=== PATIENT | female | born 1960 | race Caucasian/White ===

== ENCOUNTER 2018-09-22 06:07 | Day surgery (SDC) | payer MEDICARE, OTHER, SELFPAY ==
[2018-09-22 06:38] VITALS: BP 107/69; PULSE 84; RESP 16; TEMP 35.8; O2SAT 97
[2018-09-22] MEDS: Lactated Ringers 1,000 ML 80 ML IV (07:09)
[2018-09-22] MEDS: CLINDAMYCIN 600 MG/50 ML BAG 100 MG IVPB (07:46)
[2018-09-22] MEDS: Normal Saline 1,000 ML 100 ML IV (07:54)
[2018-09-22] MEDS: Bupivacaine 0.5% Pres-Free 30 ML VIAL (07:55)
[2018-09-22] MEDS: Lidocaine 1% Pres-Free 5 ML VIAL (07:55)
--- NOTE | 2018-09-22 08:07 | W.PM.DSUDISC ---
Discharge Plan Disposition Patient Disposition: HOME Condition: Good Discharge Details Reason For Visit: correction hammertoe Attending Provider: Dominic Mathias Primary Care Provider: Hai Ortiz Home Meds and New Rx's Prescriptions: No Action potassium chloride 10 mEq Capsule, Extended Release 10 meq PO DAILY RF: 0 gabapentin 600 mg Tablet 600 mg PO TID RF: 0 sumatriptan succinate 100 mg Tablet 100 mg PO PRN PRNRF: 0 clonazepam 0.5 mg Tablet 0.5 mg PO PRN PRNRF: 0 venlafaxine [Effexor XR] 150 mg Capsule,Extended Release 24hr 150 mg PO DAILY RF: 0 tramadol 50 mg Tablet 50 mg PO DAILY RF: 0 tramadol 50 mg Tablet 100 mg PO PRN PRNRF: 0 methocarbamol 750 mg Tablet 750 mg PO HS RF: 0 furosemide 80 mg Tablet 80 mg PO DAILY RF: 0 pantoprazole 40 mg Tablet,Delayed Release (Dr/Ec) 40 mg PO DAILY RF: 0 losartan 25 mg Tablet 25 mg PO DAILY RF: 0 montelukast 10 mg Tablet 10 mg PO HS RF: 0 albuterol sulfate [ProAir HFA] 90 mcg/actuation Hfa Aerosol Inhaler 1 Inhalation PRN PRNRF: 0 trimethobenzamide [Tigan] 300 mg Capsule 300 mg PO PRN PRNRF: 0 cholecalciferol (vitamin D3) [Vitamin D3] 1,000 unit Capsule 50,000 unit .3TIMES WEEK RF: 0 Novolog PenFill U-100 Insulin 100 unit/mL Cartridge See Rx Instructions .ROUTE .COMPLEX RF: 0 topiramate [Topamax] 50 mg Tablet 50 mg PO BID RF: 0 Levemir U-100 Insulin 100 unit/mL Solution 160 unit subcut DAILY RF: 0 fenofibrate nanocrystallized [Tricor] 145 mg Tablet 145 mg PO HS RF: 0 Breo Ellipta 100-25 mcg/dose Blister With Device 1 inh INHALATION DAILY RF: 0 Belsomra 20 mg Tablet 20 mg PO HS RF: 0 ferrous sulfate 325 mg (65 mg iron) Tablet 325 mg PO DAILY RF: 0 Discharge Instructions Activity:: Elevate Remove Dressings/Wound Care:: Do Not Remove Diet:: Carb Counting Discharge Orders Discharge Orders: Discharge Order (Routine); Ordered 09/22/18 Ordered By: Dominic Mathias DS: Diagnosis Discharge Diagnosis (1) Hammertoe of left foot: Status: Acute
[2018-09-22 08:42] VITALS: BP 111/51; PULSE 83; RESP 16; TEMP 35.6; O2SAT 96
--- NOTE | 2018-09-22 09:33 | ROE_ITS ---
DATE OF PROCEDURE: September 22, 2018 PREOPERATIVE DIAGNOSIS: Symptomatic left fifth hammertoe deformity. POSTOPERATIVE DIAGNOSIS: Same. PROCEDURE: Arthroplasty of the left fifth toe. ANESTHESIA: Monitored Anesthesia Care - IV general utilizing 10 cc's 50:50 mixture 1% Lidocaine plai n, 0.5% Marcaine plain digital block. SURGEON: Dominic Mathias D.P.M. OPERATIVE INDICATIONS: 58-year-old white female with long-standing chronic pain associated with a le ft fifth hammertoe which has not responded to wider shoes, various paddings. She understands risks a nd complications or surgery pertaining to pain, scarring, infection, stiffness of the joint, shorteni ng and swelling of the digit, recurrence of hammertoe, recurrence of corn formation potentially requi ring revisional procedure. All questions have been answered concerning risks and complications and a lternative treatments. Informed consent has been obtained. No promises made to the final outcome of surgery. REPORT OF OPERATION: Martha was brought to the operative suite, placed in the supine position, th e left foot prepped and draped in the usual sterile podiatric fashion. Anesthesia being obtained, th e left foot was exsanguinated; a well-padded ankle tourniquet inflated 250 mmHg. Attention was directed to the left fifth toe, where two converging semi-elliptical incisions were fany brian over the fifth toe. The incision length was approximately 2.25 cm. Skin wedge was removed. So ft tissue dissection was performed. The extensor tendon was visualized. A transverse tenotomy capsu lotomy was performed at the PIPJ level with the medial and lateral collaterals being released. The h ead of the proximal phalanx was brought up into the surgical wound. The head was noted to be degener ated with raw bone noted. With double-action bone-cutting forceps the head was resected at its surgi octavia neck. All rough and bony edges rasped smooth. Good relaxation of the toe was appreciated. Copi ous irrigation was performed. The extensor tendon was repaired end-to-end with #3-0 Vicryl and the s kin was coapted with simple interrupted suture #4-0 Nylon. Xeroform, gauze fluff compression dressin gs were applied. The tourniquet was released at twelve minutes, vascularity returning immediately to all toes. Martha left the OR with vital signs stable. Sharp and sponge counts were correct. S he will be followed by me in the office next week. Hai Ortiz M.D.
== END 2018-09-22 09:10 | disposition home or self-care (01) ==
PROVIDERS: PCP Family Medicine; Visit Provider Podiatrist
PROC: (CPT 28285; principal; 2018-09-22 07:30)
DX: M20.42 Other hammer toe(s) (acquired), left foot (principal); G89.29 Other chronic pain; M25.572 Pain in left ankle and joints of left foot; E11.9 Type 2 diabetes mellitus without complications
CPT/HCPCS: 28285; J2250; J3010

== ENCOUNTER 2019-04-09 10:29 | Outpatient (CLI) | payer MEDICARE, OTHER, SELFPAY ==
[2019-04-09 12:18] LABS: ALT 53 U/L (14-59); AST 52 U/L (15-37); Albumin 3.8 g/dL (3.4-5.0); Alkaline Phosphatase 72 U/L (46-116); Anion Gap 10.5 mmol/L (3-11); BUN 24 mg/dL (7-18); Bilirubin, Total 0.4 mg/dL (0.2-1.0); CO2 25.5 mmol/L (21.0-32.0); CREATININE 1.31 mg/dL (0.55-1.02); Calcium 8.8 mg/dL (8.5-10.1); Calculated LDL 75 mg/dL; Chloride 105 mmol/L (98-107); Cholesterol 140 mg/dL (<200); Estimated GFR 41.85 (mL/min/1.73m2); Glucose 182 mg/dL (74-106); HDL Cholesterol 36 mg/dL (40-60); Potassium 4.6 mmol/L (3.5-5.1); Sodium 141 mmol/L (136-145); Total Protein 6.6 g/dL (6.4-8.2); Triglyceride 147 mg/dL (<150)
== END 2019-04-09 10:49 ==
PROVIDERS: PCP Student in an Organized Health Care Education/Training Program; Visit Provider Student in an Organized Health Care Education/Training Program
DX: E11.9 Type 2 diabetes mellitus without complications (principal); E78.2 Mixed hyperlipidemia; E55.9 Vitamin D deficiency, unspecified
CPT/HCPCS: 36415; 80053; 80061; 82306

== ENCOUNTER 2019-04-20 11:10 | Emergency (ER) | payer MEDICARE, OTHER, SELFPAY ==
[2019-04-20] VITALS (37 sets, daily range): BP systolic 109–135; BP diastolic 56–104; PULSE 75–185; RESP 11–27; TEMP 36.5–36.8; O2SAT 92–99
[2019-04-20 12:06] LABS: Abs Immature Grans 0.02 k/cumm (0.0-0.09); Absolute Basophil Count 0.01 k/cumm (0.0-0.2); Absolute Eosinophil Count 0.16 k/cumm (0.0-0.7); Absolute Lymphocyte Count 2.23 k/cumm (1.2-3.4); Absolute Monocyte Count 0.49 k/cumm (0.11-0.7); Absolute Neutrophil Count 3.79 k/cumm (1.2-6.7); Basophils % 0.1; Eosinophils % 2.4; HCT 39.7 % (36.0-46.0); HGB 13.2 g/dL (12.0-15.5); Immature Grans % 0.3; Lymphocytes % 33.3; Mean Corp. HGB Concentration 33.2 g/dL (32.0-36.0); Mean Corpuscular Hemoglobin 30.8 pg (27.0-33.0); Mean Corpuscular Volume 92.8 fL (80-95); Mean Platelet Volume 10.9 fL (8.0-11.0); Monocytes % 7.3; Neutrophils % 56.6; Platelet Count 332 x1000/uL (130-400); RBC 4.28 m/cumm (4.00-5.20); RBC Distribution Width 12.7 % (11.7-14.6)
--- NOTE | 2019-04-20 12:07 | DI.RAD_ITS ---
EXAM: XR CHEST 2V PA AND LATERAL CLINICAL HISTORY: chest pain. TECHNIQUE: 2D digital imaging was performed. COMPARISON: No exams were available for comparison FINDINGS: LUNGS: Clear. No pleural abnormality seen. HEART: Normal. MEDIASTINUM: Normal. OTHER FINDINGS:Normal. IMPRESSION: No acute pulmonary findings.
[2019-04-20 12:54] LABS: ALT 76 U/L (14-59); AST 71 U/L (15-37); Albumin 4.2 g/dL (3.4-5.0); Alkaline Phosphatase 107 U/L (46-116); Anion Gap 11.2 mmol/L (3-11); BUN 24 mg/dL (7-18); Bilirubin, Total 0.4 mg/dL (0.2-1.0); CO2 26.8 mmol/L (21.0-32.0); CREATININE 1.08 mg/dL (0.55-1.02); Calcium 9.5 mg/dL (8.5-10.1); Chloride 108 mmol/L (98-107); Estimated GFR 52.29 (mL/min/1.73m2); Glucose 115 mg/dL (74-106); Potassium 3.7 mmol/L (3.5-5.1); Sodium 146 mmol/L (136-145); Total Protein 7.7 g/dL (6.4-8.2)
[2019-04-20 12:57] LABS: Troponin I < 0.05 ng/Ml (<0.06)
[2019-04-20 13:11] LABS: Bilirubin Negative (Negative); Blood Negative (Negative); Clarity Clear (Clear); Glucose Negative (Negative); Ketones Negative (Negative); Leukocyte Esterase Small (Negative); Nitrite Negative (Negative); Specific Gravity 1.015 (1.005-1.025); Urobilinogen 0.2 EU/dL (Up TO 0.2); pH 5.5 (5-8)
[2019-04-20 13:24] LABS: Bacteria Few HPF (Negative); Crystals Negative HPF (Negative); Epithelial Cells Few HPF (Negative); Other Cells Rare Renal (Negative); RBC Negative HPF (0-2)
[2019-04-20 13:25] LABS: C & S Indicated? Yes; Casts 5-10 Hyaline LPF (Negative); Mucus Trace (Negative)
--- NOTE | 2019-04-20 14:56 | W.ED.GENAD ---
Discharge Plan Disposition Patient Disposition: AGAINST MEDICAL ADVICE Condition: Stable Discharge Details Chief Complaint: Chest Pain Clinical Impression: Chest pain Primary Care Provider: Lore Roman ED Provider: Sharon Porras Home Meds and New Rx's Prescriptions: No Action ondansetron HCl 4 mg tablet 4 mg PO Q8H PRN (Reason: nausea and vomiting) Qty: 30 RF: 1 polyethylene glycol 3350 [Miralax] 17 gram/dose powder 17 gm PO BID RF: 0 Belsomra 20 mg tablet 20 mg PO HS Qty: 90 RF: 0 Narcan 4 mg/actuation spray,non-aerosol 4 mg LINA PRN RF: 0 trimethobenzamide [Tigan] 300 mg capsule 300 mg PO Q8H PRNRF: 0 Viibryd 20 mg tablet 20 mg PO DAILY RF: 0 venlafaxine [Effexor XR] 150 mg capsule,extended release 24hr 150 mg PO DAILY RF: 0 Breo Ellipta 100-25 mcg/dose blister with device 1 inh IH DAILY RF: 0 Xeljanz XR 11 mg tablet extended release 24 hr 11 mg PO DAILY RF: 0 gabapentin 600 mg Tablet 600 mg PO TID RF: 0 sumatriptan succinate 100 mg Tablet 100 mg PO PRN PRNRF: 0 clonazepam 0.5 mg Tablet 0.5 mg PO PRN PRNRF: 0 tramadol 50 mg Tablet 100 mg PO PRN PRNRF: 0 methocarbamol 750 mg Tablet 750 mg PO HS RF: 0 furosemide 80 mg Tablet 80 mg PO DAILY RF: 0 pantoprazole 40 mg Tablet,Delayed Release (Dr/Ec) 40 mg PO DAILY RF: 0 losartan 25 mg Tablet 25 mg PO DAILY RF: 0 montelukast 10 mg Tablet 10 mg PO HS RF: 0 albuterol sulfate [ProAir HFA] 90 mcg/actuation Hfa Aerosol Inhaler 1 Inhalation PRN PRNRF: 0 cholecalciferol (vitamin D3) [Vitamin D3] 1,000 unit Capsule 50,000 unit .3TIMES WEEK RF: 0 Novolog PenFill U-100 Insulin 100 unit/mL Cartridge See Rx Instructions .ROUTE .COMPLEX RF: 0 topiramate [Topamax] 50 mg Tablet 50 mg PO BID RF: 0 Levemir U-100 Insulin 100 unit/mL Solution 160 unit subcut DAILY RF: 0 ferrous sulfate 325 mg (65 mg iron) Tablet 325 mg PO DAILY RF: 0 potassium chloride 10 mEq capsule, extended release 10 meq PO BID RF: 0 Discharge Instructions Instructions: Chest Pain (ED) Additional Instructions: Please follow-up promptly with your primary care doctor for outpatient stress testing. Return immediately for chest pain, difficulty breathing or shortness of breath, dizziness or weakness. Discharge Data Discharge Date/Time-TO BE ENTERED AT DEPARTURE: 04/20/19 16:11 Medical Decision Making Is a 59-year-old patient with a known medical history including anemia, chronic kidney disease, diabetes, fibromyalgia, IBS, hyperlipidemia and obesity who presents to the emergency room for 4 days of intermittent chest pain. Patient reports several episodes of chest pain over the last 4 days some which have been exertional some which have been at rest lasting between 15 minutes and 2 hours described as substernal chest pain with radiation occasionally to the back and toward the left shoulder. Patient reports associated diaphoresis during episodes of chest pain. Patient mentioned her chest pain to her PCP today who recommended she come to the emergency room for further evaluation. At this time patient presents to the emergency room chest pain-free. She is feeling at her baseline at this time. Patient reports last episode of chest pain was yesterday. Patient reports her blood sugars have been normal recently. No significant change. Patient reports she has not had a stress test in several years Chest pain evaluation initiated specifically magnesiums troponins as well as EKG. Patient's initial EKG reveals a sinus rhythm with frequent PACs and a rate of 80. No significant ST segment changes. Patient second troponin remains negative. Patient remains chest pain-free in the emergency room. Given patient's risk factors as well as concerning symptomatology I have recommended that the patient stay in the emergency room for further cardiac testing specifically for stress testing. Patient has a heart score of 3 which does put her in the low risk category but her clinical picture being concerning enough that I feel admission is warranted. At this time patient does not want to be admitted to the hospital for stress testing. She would prefer to follow-up with her PCP as an outpatient. Patient is aware of the the risk of potential cardiac event occurring if she leaves the hospital. Patient reports her understanding of risk of cardiac event or possibly . Patient continues to declined admission. Given patient's preference I felt it was most reasonable to call her primary care doctor make them aware of patient's preference to be discharged at this time. Spoke with PCP and made aware of my concerns and patient's disposition. PCP will help arrange for outpatient stress testing as soon as possible and follow-up with the patient. Patient ultimately will be signing out of the hospital AMA this evening. I had a discussion with the patient about my diagnostic/treatment plan. Patient declines plan and wishes to leave against medical advise. I reiterated my concerns to the patient and explained the risks of leaving prior to completion of workup and treatment. I specifically emphasized the possibility of life-threatening or lifestyle modifying disease that would no be appropriately treated if they leave. Patient verbalized understanding of my concerns and the potential for life threatening or lifestyle modifying disease. Patient has capacity to make informed decision. I again explained my concerns and urged the patient to stay for treatment as outlined. Patient continued to refuse. I then discussed potential less ideal alternatives to diagnostic/treatment plan as outlined and patient refused. I recommended that the patient followup with primary care physician RON or return to the Emergency Department at any time for return of symptoms. HPI General Date/Time Provider Initiated Documentation: 04/20/19 11:13. HPI Narrative: Is a very pleasant 59-year-old woman who presents for complaints of intermittent chest pain for the last 4 days. Patient reports several episodes of chest pain approximately 3-4 episodes per day over the last 4 days. Patient reports chest pain which is substernal occasionally with radiation to her back. Patient reports associated diaphoresis during episodes. Patient denies palpitations. Patient does report the pain radiates toward her back and up towards shoulder although each episode is not the same. Patient reports episodes of lasted as little as 15 minutes and is much as 2 hours. Patient reports onset of chest pain while cooking food in the kitchen, onset of chest pain while sitting at rest, onset of chest pain while walking. Patient reports both exertional pain and at rest. Patient denies associated nausea, vomiting or abdominal pain. Patient denies any recent upper respiratory symptoms or cough. Patient spoke with her PCP regarding her pain today while having a well exam and follow-up on labs. PCP recommended patient come to the emergency room for further evaluation of her pain. Patient denies any recent stress testing. Related Data Home Medications Medication Instructions Recorded Confirmed albuterol sulfate [ProAir HFA] 1 INHALATION PRN PRN 09/19/18 03/23/19 cholecalciferol (vitamin D3) 50,000 unit .3TIMES WEEK 09/19/18 04/20/19 [Vitamin D3] clonazepam 0.5 mg PO PRN PRN 09/19/18 04/20/19 ferrous sulfate 325 mg PO DAILY 09/19/18 04/20/19 furosemide 80 mg PO DAILY 09/19/18 04/20/19 gabapentin 600 mg PO TID 09/19/18 04/20/19 insulin aspart U-100 [Novolog See Rx Instructions .ROUTE .COMPLEX 09/19/18 04/20/19 PenFill U-100 Insulin] insulin detemir U-100 [Levemir 160 unit SUBCUT DAILY 09/19/18 04/20/19 U-100 Insulin] losartan 25 mg PO DAILY 09/19/18 04/20/19 methocarbamol 750 mg PO HS 09/19/18 04/20/19 montelukast 10 mg PO HS 09/19/18 04/20/19 pantoprazole 40 mg PO DAILY 09/19/18 04/20/19 sumatriptan succinate 100 mg PO PRN PRN 09/19/18 04/20/19 topiramate [Topamax] 50 mg PO BID 09/19/18 04/20/19 tramadol 100 mg PO PRN PRN 09/19/18 04/20/19 fluticasone furoate 100 1 inh IH DAILY 03/01/19 04/20/19 mcg-vilanterol 25 mcg/dose inhalation powder naloxone 4 mg/actuation nasal spray 4 mg LINA PRN each 03/01/19 04/20/19 tofacitinib 11 mg tablet,extended 11 mg PO DAILY 03/01/19 04/20/19 release 24 hr trimethobenzamide 300 mg capsule 300 mg PO Q8H PRN cap 03/01/19 04/20/19 venlafaxine 150 mg 150 mg PO DAILY 03/01/19 04/20/19 capsule,extended release 24 hr vilazodone 20 mg tablet 20 mg PO DAILY 03/01/19 04/20/19 potassium chloride 10 mEq 10 meq PO BID cap 03/23/19 04/20/19 capsule,extended release ondansetron HCl 4 mg tablet 4 mg PO Q8H PRN #30 tab 03/26/19 04/20/19 polyethylene glycol 3350 17 17 gm PO BID 04/20/19 04/20/19 gram/dose oral powder suvorexant 20 mg tablet 20 mg PO HS #90 tab 04/20/19 04/20/19 Previous Rx's Medication Instructions Recorded ondansetron HCl 4 mg tablet 4 mg PO Q8H PRN #30 tab 03/26/19 suvorexant 20 mg tablet 20 mg PO HS #90 tab 04/20/19 Allergies Allergy/AdvReac Type Severity Reaction Status Date / Time adhesive tape Allergy Skin Rash Verified 04/20/19 11:17 cefaclor [From Ceclor] Allergy Verified 04/20/19 11:17 erythromycin base Allergy breathing Verified 04/20/19 11:17 problems hydromorphone [From Dilaudid] Allergy I stop Verified 04/20/19 11:17 breathing iodine Allergy rash & Verified 04/20/19 11:17 breathing problems lamotrigine Allergy rash, Verified 04/20/19 11:17 asthma levofloxacin [From Levaquin] Allergy turns my Verified 04/20/19 11:17 legs blue and my blood from my legs pools meperidine [From Demerol] Allergy severe Verified 04/20/19 11:17 itching morphine Allergy breathing Verified 04/20/19 11:17 problems promethazine [From Phenergan] Allergy facial Verified 04/20/19 11:17 droop & tick scopolamine AdvReac Verified 04/20/19 11:17 urea Allergy skin Uncoded 04/20/19 11:17 blisters General Stated Complaint: Chest Pain PURA: 2 Review of Systems All systems reviewed & are unremarkable except as noted in HPI and below Constitutional Constitutional: Denies chills, Denies fever(s), Denies headache(s) and Denies malaise ENT Ears, Nose, Mouth, and Throat: Denies headache(s), Denies nasal congestion and Denies sore throat Cardiovascular Cardiovascular: Reports chest pain, Reports chest pain at rest, Reports chest pain with activity, Reports diaphoresis, Denies syncope, Denies irregular heart rhythm, Denies leg edema, Reports radiating jaw, neck or arm pain and Denies dyspnea on exertion Respiratory Respiratory: Denies cough, Denies pain on inspiration, Denies pain with cough and Denies dyspnea on exertion Gastrointestinal Gastrointestinal: Denies abdominal pain, Denies nausea and Denies vomiting Neurologic Neurologic: Denies syncope and Denies headache(s) [facility] Medical History Acid reflux (Chronic) Acute rheumatoid arthritis (Acute) Allergic rhinitis (Acute) Anemia (Chronic) Arthritis (Acute) Asthma (Chronic) Bilateral cataracts (Acute) Candidal vulvovaginitis (Acute) Chronic kidney disease, stage 2 (mild) (Acute) Diabetes (Chronic) A1C 6.7 01/26/19 DM > 30 years, with nausea 2' gastroparesis Fibromyalgia (Acute) Gastric paresis (Acute) Disability IBS (irritable bowel syndrome) (Chronic) Insomnia (Acute) Left Achilles tendinitis (Acute) Migraine (Chronic) Mixed anxiety and depressive disorder (Acute) Mixed hyperlipidemia (Acute) Neurodermatitis (Acute) Neuropathy (Acute) Vitamin D deficiency (Acute) Surgical History (Updated 02/28/19 @ 14:28 by Shannon Ray) H/O Achilles tendon repair (Acute ~2016) H/O hernia repair (Chronic ~2014) History of carpal tunnel surgery (Acute ~2005) bilateral History of cholecystectomy (Chronic) History of gastric bypass (Acute ~2003) History of thumb surgery (Acute ~2014) bilateral Family History (Updated 02/28/19 @ 14:16 by Shannon Ray) Mother Diabetes Hypertension Brother Substance abuse Asthma Sister Substance abuse Asthma Anxiety Social History Smoking/Tobacco Use Status: Never Alcohol Intake: never Drug use: Never Substance use type: does not use Adopted: Yes Caregiver/Support person: Yes Foster care: No Household members: friend(s) Housing: house Number of Children: 0 Do you need help understanding health information?: Never current occupation: Disabled Do you think of yourself as: lesbian/diana/homosexual Current gender identity: female What is your relationship status?: living with partner Panel score (0-1 are the most socially isolated patients): 1 What type of physical activity do you participate in: other Details: walks twice a day with dog 1 mile each time Duration: < 15 minutes/day Seatbelt use: always Do you feel safe at home: Yes Exam Narrative Exam Narrative: CONST: Healthy appearing patient, in no acute distress. Well hydrated. Alert and alert. Obese. HENMT: Head nomocephalic, normal to inspection. Atraumatic. Hearing grossly normal. External ear canal no erythema or swelling. TM normal bilaterally. Nose normal to inspection. No rhinnorhea. Normal facial exam. Oral mucosa normal. Tounge normal. Dentition normal. Normal posterior oropharynx. Uvula midline. EYES: General normal appearance. Alignment normal. Eyelids normal. Conjunctiva normal. Sclera normal. PERRL. NECK: Normal visual inspection. FROM. No lymphadenopathy. Trachea midline. No Midline tenderness. CHEST: Normal insepection of the chest. RESP: Normal respiratory effort. Speaking full sentences. No cough. No wheezing. No retractions. Clear to auscaltation. Breath sound equal and present bilaterally. CARDIO: No JVD. Normal PMI. Regular Rate. Regular Rhythm. Normal peripheral pulses. GI: Normal inspection of abdomen. No distension. Soft. Nontender. Bowel sounds present in all 4 quadrants. No rebound. No gaurding. SKIN: Normal. Dry. No rashes. NEURO: Alert and awake. Speech clear. PSYCH: Normal affect. Cooperative. Course Vital Signs Vital signs: Vital Signs Temperature 36.8 C 04/20/19 11:14 Temperature 36.8 C 04/20/19 11:14 Temperature Source Skin 04/20/19 11:14 Pulse 78 04/20/19 12:31 Pulse 84 04/20/19 13:40 Respiratory Rate 16 04/20/19 13:40 Respiratory Effort 04/20/19 11:30 Respiratory Pattern Normal 04/20/19 11:30 Blood Pressure 115/60 04/20/19 12:31 Blood Pressure Mean 73 04/20/19 12:31 Pulse Oximetry 96 04/20/19 13:30 Pain Level 7 04/20/19 11:30 Lab/Test Results Lab/Test Results: 04/20/19 12:40 Urine - Reflex from Ua Urine Culture - Pending Laboratory Tests Range/Units 04/20/19 04/20/19 04/20/19 11:45 11:45 12:40 WBC (4.4-10.8) k/cumm 6.70 RBC (4.00-5.20) m/cumm 4.28 Hgb (12.0-15.5) g/dL 13.2 Hct (36.0-46.0) % 39.7 MCV (80-95) fL 92.8 MCH (27.0-33.0) pg 30.8 MCHC (32.0-36.0) g/dL 33.2 RDW (11.7-14.6) % 12.7 Plt Count (130-400) x1000/uL 332 MPV (8.0-11.0) fL 10.9 Immature Gran % 0.3 Neutrophils % 56.6 Lymphocytes % 33.3 Monocytes % 7.3 Eosinophils % 2.4 Basophils % 0.1 Absolute Neutrophils (1.2-6.7) k/cumm 3.79 Absolute Lymphocytes (1.2-3.4) k/cumm 2.23 Absolute Monocytes (0.11-0.7) k/cumm 0.49 Absolute Eosinophils (0.0-0.7) k/cumm 0.16 Absolute Basophils (0.0-0.2) k/cumm 0.01 Sodium (136-145) mmol/L 146 H Potassium (3.5-5.1) mmol/L 3.7 Chloride (98-107) mmol/L 108 H Carbon Dioxide (21.0-32.0) mmol/L 26.8 Anion Gap (3-11) mmol/L 11.2 H BUN (7-18) mg/dL 24 H Creatinine (0.55-1.02) mg/dL 1.08 H Estimated GFR/1.73 m2 (mL/min/1.73m2) 52.29 Glucose (74-106) mg/dL 115 H Calcium (8.5-10.1) mg/dL 9.5 Magnesium (1.8-2.4) mg/dL 2.0 Total Bilirubin (0.2-1.0) mg/dL 0.4 AST (15-37) U/L 71 H ALT (14-59) U/L 76 H Alkaline Phosphatase (46-116) U/L 107 Troponin I (<0.06) ng/Ml < 0.05 Total Protein (6.4-8.2) g/dL 7.7 Albumin (3.4-5.0) g/dL 4.2 Urine Color (Yellow) Yellow Urine Clarity (Clear) Clear Urine pH (5-8) 5.5 Ur Specific [place] (1.005-1.025) 1.015 Urine Protein (Negative) mg/dL Negative Urine Ketones (Negative) mg/dL Negative Urine Blood (Negative) Negative Urine Nitrite (Negative) Negative Urine Bilirubin (Negative) Negative Urine Urobilinogen (Up TO 0.2) EU/dL 0.2 Ur Leukocyte Esterase (Negative) Small H Urine RBC (0-2) HPF Negative Urine WBC (0-5) HPF 10-20 H Ur Epithelial Cells (Negative) HPF Few Urine Crystals (Negative) HPF Negative Urine Bacteria (Negative) HPF Few Urine Casts (Negative) LPF 5-10 hyaline Urine Mucus (Negative) Trace Urine Other (Negative) Rare renal Ur Culture Indicated? Yes Urine Glucose (Negative) mg/dL Negative
[2019-04-20 14:57] LABS: Troponin I < 0.05 ng/Ml (<0.06)
--- NOTE | 2019-04-20 19:02 | W.ED.FU ---
ECG reviewed and interpreted by me: Sinus rhythm 80 bpm, PACs, no STEMI, nondiagnostic.
== END 2019-04-20 16:11 | disposition left against medical advice (07) ==
PROVIDERS: Emergency Provider Physician Assistant; PCP Student in an Organized Health Care Education/Training Program
DX: R07.9 Chest pain, unspecified (principal); R61 Generalized hyperhidrosis; E11.22 Type 2 diabetes mellitus with diabetic chronic kidney disease; Z79.4 Long term (current) use of insulin; N18.2 Chronic kidney disease, stage 2 (mild); Z53.29 Procedure and treatment not carried out because of patient's decision for other reasons
CPT/HCPCS: 36415; 80053; 93005; 99284; 71046; 81003; 81015; 83735; 84484; 85025; 87086; 93010; 99285

== ENCOUNTER 2019-05-22 00:23 | Outpatient (CLI) | payer MEDICARE, OTHER, SELFPAY ==
--- NOTE | 2019-05-22 10:24 | DI.NM_ITS ---
APPROVED REPORT Exam: Pharmacologic Patient Location: Out-Patient Room/Bed: Stress Nurse: Dana Hurtado RN BMI: 37.77 Baseline Rhythm: Sinus rhythm Indications: Pt reports intermittent dull chest pain that is sometimes associated with nausea, SOB an d clammy skin. Chest pain is at rest, lasting for a few minutes each time. Medical History Medical History: Diabetes, Obesity Cardiac Medications: Losartan, Furosemide/ Lasix Allergies: Ceclor. Iodine. Demerol. Urea. Dilaudid. Morphine. Levaquin. Phenergan. Lamotrigine. Cardiac Risk Factors: Diabetes (insulin), Asthma Pretest Chest Pain Characteristics: Non-exertional Chest pain Exercise History: Indeterminate Physical Disabilities: Knees Lung Sounds: Clear to auscultation Heart Sounds: Regular Stress Test Details Test: Pharmacologic stress testing performed using 0.4 mg of regadenoson per 5 mL given IV over 10 s econds. Nuclear Acquisition: Rest Tc-99m/Stress Tc-99m 1 day Rest Isotope: Tc-99m Sestamibi. Dose: 12.1 Date: 05/22/2019 Injection Time: 0900 Stress Isotope: Tc-99m Sestamibi. Dose: 37.2 Date: 05/22/2019 Injection Time: 1045 HR Max Heart Rate (APMHR): 163 bpm Resting HR Supine: 78 bpm Target HR (85% APMHR): 138 bpm Max HR Achieved: 84 bpm % of APMHR: 51 BP Resting BP Supine: 104/80 mmHg Max BP: 104/80 mmHg Recovery BP: 100/62 mmHg BP response to stress: Abnormal hypotensive response to stress. ECG Resting ECG: Sinus Rhythm ST Change: No significant ST segment changes Stress ECG: Sinus Rhythm, , Clear ST Change: No significant ST segment changes Arrhythmia: None, APC's, VPC's, Atrial fibrillation, SVT, Non-sustained VT Recovery ECG: Sinus Rhythm Recovery ST Change: none Recovery Arrhythmia: None Clinical Stress Symptoms: Pt experience no siginificant side effects from Lexiscan injection Stress ECG Conclusion 1. There is no evidence of ischemia on the ECG portion of this exam. Protocol Used: Regadenoson Stress Test Summary STAGE HR BP Symptoms NOTES Supine 78 104/80 1 min post lexiscan injection 84 92/40 3 min post lexiscan injection 83 88/52 6 min post lexiscan injection 81 82/48 9 min post lexiscan injection 77 100/62 MPI Conclusion There is a small fixed defect at the apex which likely represents artifact. Ejection fraction with stress was 52% with no wall motion abnormalities This likely represents a normal SPECT exam.
[2019-05-22] MEDS: Regadenoson 0.4 MG/5 ML SYR IVP (11:15)
== END 2019-05-22 00:43 ==
PROVIDERS: PCP Student in an Organized Health Care Education/Training Program; Visit Provider Student in an Organized Health Care Education/Training Program
DX: R07.9 Chest pain, unspecified (principal); R06.02 Shortness of breath; D64.9 Anemia, unspecified; E11.9 Type 2 diabetes mellitus without complications; E66.9 Obesity, unspecified
CPT/HCPCS: 78452; 93016; 93018; 93017; J2785

== ENCOUNTER 2019-05-25 10:12 | Outpatient (CLI) | payer MEDICARE, OTHER, SELFPAY ==
[2019-05-25 12:19] LABS: ALT 86 U/L (14-59); AST 67 U/L (15-37); Albumin 4.2 g/dL (3.4-5.0); Alkaline Phosphatase 124 U/L (46-116); Anion Gap 13.8 mmol/L (3-11); BUN 15 mg/dL (7-18); Bilirubin, Total 0.3 mg/dL (0.2-1.0); CO2 22.2 mmol/L (21.0-32.0); CREATININE 0.73 mg/dL (0.55-1.02); Chloride 106 mmol/L (98-107); Creatine Kinase 472 U/L (26-192); Glucose 102 mg/dL (74-106); Potassium 3.6 mmol/L (3.5-5.1); Sodium 142 mmol/L (136-145); Total Protein 6.9 g/dL (6.4-8.2)
[2019-05-25 12:41] LABS: Calculated LDL 105 mg/dL; Cholesterol 176 mg/dL (<200); HDL Cholesterol 39 mg/dL (40-60); Triglyceride 163 mg/dL (<150)
== END 2019-05-25 10:32 ==
PROVIDERS: PCP Student in an Organized Health Care Education/Training Program; Visit Provider Student in an Organized Health Care Education/Training Program
DX: E78.1 Pure hyperglyceridemia (principal); R74.8 Abnormal levels of other serum enzymes
CPT/HCPCS: 36415; 80053; 80061; 82550

== ENCOUNTER 2019-05-25 11:07 | Outpatient (REF) | payer MEDICARE, OTHER, SELFPAY ==
[2019-05-28 15:36] LABS: C Difficile PCR Positive (Negative)
[2019-05-31 19:25] LABS: Pancreatic Elastase, F 102 mcg/g
== END 2019-05-25 11:27 ==
LOC: NCHCN 11:07
PROVIDERS: PCP Student in an Organized Health Care Education/Training Program; Visit Provider Internal Medicine Gastroenterology
DX: R19.7 Diarrhea, unspecified (principal)
CPT/HCPCS: 82656; 87324; 87798

== ENCOUNTER 2019-06-01 09:48 | Outpatient (CLI) | payer MEDICARE, OTHER, SELFPAY ==
--- NOTE | 2019-06-01 10:10 | DI.RAD_ITS ---
EXAM: XR ABDOMEN FLAT PLATE INDICATION: CHRONIC CONDTIPATION K59.09, 5 DAY SITZ VASYL STUDY, COUNT SITZ BARR. COMPARISON: No exams were available for comparison TECHNIQUE: 2D digital imaging was performed. FINDINGS: Surgical clips are noted in both right and left upper quadrants. Suture material is noted around th e stomach. There is increased stool seen throughout the colon. There is no abnormal bowel dilatatio n. There are 3 Sitz markers visible which are positioned in the lower rectum. IMPRESSION: Three Sitz markers are positioned in the lower rectum.
== END 2019-06-01 10:08 ==
PROVIDERS: PCP Student in an Organized Health Care Education/Training Program; Visit Provider Internal Medicine Gastroenterology
DX: K59.09 Other constipation (principal)
CPT/HCPCS: 74018

== ENCOUNTER 2019-06-14 09:25 | Outpatient (REF) | payer MEDICARE, OTHER, SELFPAY | END 2019-06-14 09:45 | LOC: LBO 09:25 | PROVIDERS: PCP Student in an Organized Health Care Education/Training Program; Visit Provider Internal Medicine Gastroenterology | DX: R19.7 Diarrhea, unspecified (principal) | CPT/HCPCS: 87324 ==

== ENCOUNTER 2019-07-16 08:26 | Outpatient (CLI) | payer MEDICARE, OTHER, SELFPAY | END 2019-07-16 08:46 | PROVIDERS: PCP Student in an Organized Health Care Education/Training Program; Visit Provider Internal Medicine Cardiovascular Disease | DX: R07.89 Other chest pain (principal); R25.2 Cramp and spasm; E11.22 Type 2 diabetes mellitus with diabetic chronic kidney disease; N18.2 Chronic kidney disease, stage 2 (mild) | CPT/HCPCS: 99204; 99215; 93005; 93010 ==

== ENCOUNTER 2019-07-20 10:42 | Outpatient (REF) | payer MEDICARE, OTHER, SELFPAY ==
[2019-07-21 19:54] LABS: Calprotectin 44.9 mcg/g
== END 2019-07-20 11:02 ==
LOC: LBN 10:42
PROVIDERS: PCP Student in an Organized Health Care Education/Training Program; Visit Provider Internal Medicine Gastroenterology
DX: R19.7 Diarrhea, unspecified (principal)
CPT/HCPCS: 83993

== ENCOUNTER 2019-07-26 02:01 | Outpatient (CLI) | payer MEDICARE, OTHER, SELFPAY ==
[2019-07-26] MEDS: Barium Sulfate 2% W/V-Creamy Vanilla Smoothie 450 ML BTL PO (09:01)
[2019-07-26 09:05] LABS: ALT 120 U/L (14-59); AST 69 U/L (15-37); Albumin 3.8 g/dL (3.4-5.0); Alkaline Phosphatase 187 U/L (46-116); Anion Gap 10.8 mmol/L (3-11); BUN 27 mg/dL (7-18); Bilirubin, Direct 0.13 mg/dL (0.00-0.20); Bilirubin, Total 0.4 mg/dL (0.2-1.0); CO2 25.2 mmol/L (21.0-32.0); CREATININE 1.16 mg/dL (0.55-1.02); Calcium 9.1 mg/dL (8.5-10.1); Chloride 101 mmol/L (98-107); Estimated GFR 48.15 (mL/min/1.73m2); Glucose 428 mg/dL (74-106); Potassium 4.1 mmol/L (3.5-5.1); Sodium 137 mmol/L (136-145); Total Protein 7.7 g/dL (6.4-8.2)
--- NOTE | 2019-07-26 10:20 | DI.CT_ITS ---
EXAM: CT ABDOMEN PELVIS W CLINICAL HISTORY: CHRONIC ABD PAIN, R10.9, ? BOWEL OBSTRUCTION. TECHNIQUE: Imaging Protocol: Axial computed tomography images with coronal and sagittal reformatted images were created and reviewed CONTRAST MATERIAL: Intravenous: Omnipaque 350 Contrast volume:100ml Oral: yes COMPARISON: XR ABDOMEN FLAT PLATE from 06/01/2019 FINDINGS: ABDOMEN: Lung Bases: Normal where visualized. Liver: Heterogeneous decreased density. No measurable mass. Gallbladder and biliary tract: No radiodense calculus or dilation. Status post cholecystectomy Pancreas: Normal density, no abnormal calcifications or inflammatory process. Spleen: Normal. Kidneys: Normal size, contour and axis. No radiodense stones or obstructive uropathy. No masses seen. Left renal cysts are noted. Adrenal glands: No masses seen. Abdominal Aorta: Abdominal portion non-dilated. Mild calcification. PELVIS: Bladder: no gross wall thickening. Bowel: Status post gastric bypass. No obstruction or bowel wall thickening. Normal quantity of stool . Peritoneal cavity: No ascites, collection or mesenteric inflammatory response. Bones: Within normal limits. Reproductive organs: Within normal limits. Lymph nodes: Unremarkable. Small fatty containing umbilical hernia. Impression: Status post gastric bypass. No evidence of obstruction or inflammation. Heterogeneous low-density liver likely representing hepatic steatosis.. DATA REPOSITORY: All CT scans at this facility are submitted to the National Radiology Data Registry (NRDR) Dose Index Registry (DIR) with the [employer] (ACR). RADIATION OPTIMIZATION: All CT scans at this facility use at least one of these dose optimization te chniques: automated exposure control; mA and/or kV adjustment per patient size (includes targeted exa ms where dose is matched to clinical indication); or iterative reconstruction.
[2019-07-26] MEDS: Omnipaque 350 MG/ML 100 ML BTL IJ (10:31)
[2019-07-26] MEDS: Normal Saline - Diluent 50 ML VIAL IV (10:33)
== END 2019-07-26 02:21 ==
PROVIDERS: PCP Student in an Organized Health Care Education/Training Program; Visit Provider Internal Medicine Gastroenterology
DX: R10.9 Unspecified abdominal pain (principal); K42.9 Umbilical hernia without obstruction or gangrene; E78.2 Mixed hyperlipidemia; N18.2 Chronic kidney disease, stage 2 (mild); E86.0 Dehydration; Z90.49 Acquired absence of other specified parts of digestive tract; Z98.84 Bariatric surgery status
CPT/HCPCS: 80048; 80076; 74177; J3490

== ENCOUNTER 2019-11-13 02:38 | Outpatient (CLI) | payer MEDICARE, OTHER, SELFPAY ==
[2019-11-13 09:37] LABS: Abs Immature Grans 0.01 k/cumm (0.0-0.09); Absolute Basophil Count 0.01 k/cumm (0.0-0.2); Absolute Eosinophil Count 0.16 k/cumm (0.0-0.7); Absolute Lymphocyte Count 1.93 k/cumm (1.2-3.4); Absolute Monocyte Count 0.62 k/cumm (0.11-0.7); Basophils % 0.1; Eosinophils % 2.2; HCT 39.5 % (36.0-46.0); HGB 13.3 g/dL (12.0-15.5); Immature Grans % 0.1 %; Lymphocytes % 26.3; Mean Corp. HGB Concentration 33.7 g/dL (32.0-36.0); Mean Corpuscular Hemoglobin 31.1 pg (27.0-33.0); Mean Corpuscular Volume 92.3 fL (80-95); Mean Platelet Volume 11.3 fL (8.0-11.0); Monocytes % 8.5; Neutrophils % 62.8; Platelet Count 250 x1000/uL (130-400); RBC 4.28 m/cumm (4.00-5.20); RBC Distribution Width 11.9 % (11.7-14.6); White Blood Cell Count 7.33 k/cumm (4.4-10.8)
[2019-11-13 10:11] LABS: ALT 239 U/L (14-59); AST 200 U/L (15-37); Albumin 3.7 g/dL (3.4-5.0); Alkaline Phosphatase 172 U/L (46-116); Anion Gap 7.8 mmol/L (3-11); BUN 18 mg/dL (7-18); Bilirubin, Total 0.4 mg/dL (0.2-1.0); C-Reactive Protein 0.09 mg/dL (0.0-0.3); CO2 27.2 mmol/L (21.0-32.0); CREATININE 1.18 mg/dL (0.55-1.02); Calcium 8.6 mg/dL (8.5-10.1); Chloride 105 mmol/L (98-107); Creatine Kinase 675 U/L (26-192); Estimated GFR 47.21 (mL/min/1.73m2); Glucose 99 mg/dL (74-106); Potassium 3.8 mmol/L (3.5-5.1); Sodium 140 mmol/L (136-145); Total Protein 6.5 g/dL (6.4-8.2); Uric Acid 9.3 mg/dL (2.6-6.0)
[2019-11-13 10:11] LABS: Calculated LDL 45 mg/dL (<100); Cholesterol 111 mg/dL (<200); HDL Cholesterol 39 mg/dL (40-60); Triglyceride 135 mg/dL (<150)
[2019-11-13 10:33] LABS: ESR 20 mm/hr (0-30)
[2019-11-14 09:44] LABS: Parathyroid Hormone,Intact 88 pg/mL (19-88)
[2019-11-15 04:25] LABS: Vitamin D 25 Total 35.2 ng/ml (30-100)
== END 2019-11-13 02:58 ==
PROVIDERS: PCP Student in an Organized Health Care Education/Training Program; Visit Provider Internal Medicine Rheumatology
DX: E55.9 Vitamin D deficiency, unspecified (principal); E11.9 Type 2 diabetes mellitus without complications; M06.09 Rheumatoid arthritis without rheumatoid factor, multiple sites; Z79.899 Other long term (current) drug therapy; R74.8 Abnormal levels of other serum enzymes
CPT/HCPCS: 36415; 80053; 80061; 82306; 82550; 85652; 83970; 84550; 85025; 86140

== ENCOUNTER 2019-11-27 03:46 | Outpatient (CLI) | payer MEDICARE, OTHER, SELFPAY ==
[2019-11-27 08:43] LABS: Abs Immature Grans 0.02 k/cumm (0.0-0.09); HCT 41.5 % (36.0-46.0); Mean Corp. HGB Concentration 33.7 g/dL (32.0-36.0); Mean Corpuscular Volume 91.8 fL (80-95); Mean Platelet Volume 10.8 fL (8.0-11.0); Platelet Count 257 x1000/uL (130-400); RBC 4.52 m/cumm (4.00-5.20); RBC Distribution Width 11.7 % (11.7-14.6); White Blood Cell Count 6.31 k/cumm (4.4-10.8)
[2019-11-27 08:59] LABS: Absolute Basophil Count 0.06 k/cumm (0.0-0.2); Absolute Eosinophil Count 0.25 k/cumm (0.0-0.7); Absolute Lymphocyte Count 2.02 k/cumm (1.2-3.4); Absolute Monocyte Count 0.38 k/cumm (0.11-0.7); Atypical Lymphocytes % 2
[2019-11-27 09:00] LABS: Diff Comment Manual Differential; RBC Morphology Normal
[2019-11-27 09:33] LABS: ALT 123 U/L (14-59); AST 83 U/L (15-37); Albumin 3.8 g/dL (3.4-5.0); Alkaline Phosphatase 180 U/L (46-116); BUN 20 mg/dL (7-18); Bilirubin, Total 0.3 mg/dL (0.2-1.0); CREATININE 0.96 mg/dL (0.55-1.02); Calcium 9.4 mg/dL (8.5-10.1); Calculated LDL 111 mg/dL (<100); Chloride 104 mmol/L (98-107); Cholesterol 202 mg/dL (<200); Estimated GFR 59.91 (mL/min/1.73m2); Glucose 174 mg/dL (74-106); HDL Cholesterol 32 mg/dL (40-60); Potassium 4.3 mmol/L (3.5-5.1); Sodium 141 mmol/L (136-145); Total Protein 6.7 g/dL (6.4-8.2); Triglyceride 297 mg/dL (<150)
[2019-11-27 09:52] LABS: C-Reactive Protein 0.17 mg/dL (0.0-0.3); Creatine Kinase 217 U/L (26-192); Uric Acid 6.4 mg/dL (2.6-6.0)
[2019-11-27 10:01] LABS: ESR 19 mm/hr (0-30)
[2019-11-28 09:52] LABS: Parathyroid Hormone,Intact 45 pg/mL (19-88)
[2019-11-29 04:48] LABS: Vitamin D 25 Total 35.9 ng/ml (30-100)
== END 2019-11-27 04:06 ==
PROVIDERS: PCP Student in an Organized Health Care Education/Training Program; Visit Provider Internal Medicine Rheumatology
DX: M06.09 Rheumatoid arthritis without rheumatoid factor, multiple sites (principal); Z79.899 Other long term (current) drug therapy; R74.8 Abnormal levels of other serum enzymes; E55.9 Vitamin D deficiency, unspecified
CPT/HCPCS: 36415; 80053; 80061; 82306; 82550; 85652; 83970; 84550; 85025; 86140

== ENCOUNTER 2019-12-14 13:59 | Outpatient (CLI) | payer MEDICARE, OTHER, SELFPAY ==
--- NOTE | 2019-12-14 14:00 | RT.EKG_ITS ---
APPROVED REPORT Exam: Resting ECG Patient Location: O HR:96 bpm ECG Measurements Heart Rate 96 AXIS AL 152 P 33 QRSd 91 QRS 41 QT 364 T 15 QTc 461 <Conclusion> Sinus rhythm...normal P axis, V-rate 60- 99 Low voltage, precordial leads...precordial leads <1.0mV
== END 2019-12-14 14:19 ==
PROVIDERS: PCP Student in an Organized Health Care Education/Training Program; Referring Provider Student in an Organized Health Care Education/Training Program; Visit Provider Internal Medicine Cardiovascular Disease
DX: R07.89 Other chest pain (principal)
CPT/HCPCS: 93010

== ENCOUNTER → 2019-12-14 13:59 | Outpatient (BNVA) | payer MEDICARE, OTHER, SELFPAY | PROVIDERS: PCP Student in an Organized Health Care Education/Training Program; Referring Provider Student in an Organized Health Care Education/Training Program; Visit Provider Internal Medicine Cardiovascular Disease | DX: R07.89 Other chest pain (principal); E78.2 Mixed hyperlipidemia; E11.9 Type 2 diabetes mellitus without complications; M15.0 Primary generalized (osteo)arthritis; E11.22 Type 2 diabetes mellitus with diabetic chronic kidney disease; Z79.4 Long term (current) use of insulin; N18.2 Chronic kidney disease, stage 2 (mild) | CPT/HCPCS: 93005; 99212 ==

== ENCOUNTER 2019-12-31 01:03 | Outpatient (CLI) | payer MEDICARE, OTHER, SELFPAY ==
--- NOTE | 2019-12-31 07:30 | DI.MAMMO_ITS ---
EXAM: MAMMO SCREENING CLINICAL HISTORY: screening,Z12.39 TECHNIQUE: Mammograms were interpreted according to the usual protocol including computer analysis w [email or web address] CAD system, tomosynthesis and C-view imaging. COMPARISON: FINDINGS: The breasts are of moderate density with fairly symmetrical distribution of fibroglandular tissue. N o dominant mass or clumped microcalcification is identified in either breast. Current examination is compared with previous examination is including December 2017 and there has been no gross interval jose nge in appearance in comparison with the prior studies. IMPRESSION: No specific evidence of malignancy at this time. Routine screening examinations are suggested at ye freedom intervals in this age group according to the ACS ACR guidelines. BI-RADS Category 1 - Negative Breast Density - Category B - Scattered areas of fibroglandular density
== END 2019-12-31 01:23 ==
PROVIDERS: PCP Student in an Organized Health Care Education/Training Program; Visit Provider Student in an Organized Health Care Education/Training Program
DX: Z12.31 Encounter for screening mammogram for malignant neoplasm of breast (principal); R92.2 Inconclusive mammogram
CPT/HCPCS: 77063; 77067

== ENCOUNTER 2020-01-10 04:29 | Outpatient (CLI) | payer MEDICARE, OTHER, SELFPAY ==
[2020-01-10 13:00] LABS: ALT 60 U/L (14-59); AST 53 U/L (15-37); Albumin 3.9 g/dL (3.4-5.0); Alkaline Phosphatase 188 U/L (46-116); Anion Gap 8.6 mmol/L (3-11); BUN 19 mg/dL (7-18); Bilirubin, Total 0.5 mg/dL (0.2-1.0); C-Reactive Protein 0.34 mg/dL (0.0-0.3); CO2 28.4 mmol/L (21.0-32.0); CREATININE 0.89 mg/dL (0.55-1.02); Calcium 9.1 mg/dL (8.5-10.1); Chloride 104 mmol/L (98-107); Creatine Kinase 357 U/L (26-192); Glucose 276 mg/dL (74-106); Potassium 4.3 mmol/L (3.5-5.1); Sodium 141 mmol/L (136-145); Uric Acid 6.9 mg/dL (2.6-6.0)
== END 2020-01-10 04:49 ==
PROVIDERS: PCP Student in an Organized Health Care Education/Training Program; Visit Provider Internal Medicine Rheumatology
DX: M06.09 Rheumatoid arthritis without rheumatoid factor, multiple sites (principal); R74.8 Abnormal levels of other serum enzymes; Z79.899 Other long term (current) drug therapy
CPT/HCPCS: 36415; 80053; 82550; 84550; 86140

== ENCOUNTER 2020-07-03 11:50 | Outpatient (REF) | payer MEDICARE, OTHER, SELFPAY ==
--- NOTE | 2020-07-03 11:30 | PAPFT_PTH ---
PATIENT: Martha Gann V LOC: [facility] U#:[id number] AGE/SX: 60/F ROOM: RE07/03/[address]: LORRAINE Ha : 1960 BED: DIS: 07/03/2020 SPEC #: [id number] RECD: 07/03/20 13:12 STATUS: MERLY REQ #: [id number] LUCINDA: 07/03/20 11:[address]: Denise Wood DEPT: [facility] Cytology RECD BY: Sharon Sagastume ENTERED: 07/03/20 13:12 SP TYPE: PAPFT OTHR DR: Lore Roman, Tissues: 1 - CX/ENDOCX FOR PAP SMEARS Procedures: PAP THIN PREP/UVM Screening HPV DNA PROBE Comments: [id number]
== END 2020-07-03 11:51 | disposition home or self-care (01) ==
LOC: LBN 11:50
PROVIDERS: PCP Student in an Organized Health Care Education/Training Program; Visit Provider Nurse Practitioner Family
DX: Z12.4 Encounter for screening for malignant neoplasm of cervix (principal); Z11.51 Encounter for screening for human papillomavirus (HPV)
CPT/HCPCS: 88142; 87624

== ENCOUNTER 2020-08-07 02:59 | Outpatient (CLI) | payer MEDICARE, OTHER, SELFPAY ==
[2020-08-07 10:16] LABS: Abs Immature Grans 0.05 10^3/uL (0.0-0.06); Absolute Basophil Count 0.04 10^3/uL (0.0-0.2); Absolute Lymphocyte Count 1.93 10^3/uL (1.2-3.4); Absolute Monocyte Count 0.57 10^3/uL (0.1-0.8); Absolute Neutrophil Count 4.43 10^3/uL (1.2-6.7); Basophils % 0.6; Eosinophils % 2.8; HCT 37.5 % (36.0-46.0); HGB 12.7 g/dL (11.2-15.7); Immature Grans % 0.7; Lymphocytes % 26.7; MCH 31.4 pg (27.0-33.0); MCHC 33.9 % (32.0-36.0); MCV 92.6 fL (80-95); Monocytes % 7.9; Neutrophils % 61.3; Nucleated RBC 0 %; Platelet Count 222 10^3/uL (130-400); RBC 4.05 10^6/uL (3.93-5.22); RDW 12.4 % (11.7-14.6); RDW-SD 42.1 fL; WBC 7.22 10^3/uL (4.4-10.8)
[2020-08-07 10:27] LABS: Hemoglobin A1C 8.7 % (<5.7)
[2020-08-07 11:12] LABS: ALT 100 U/L (14-59); AST 69 U/L (15-37); Albumin 3.8 g/dL (3.4-5.0); Alkaline Phosphatase 134 U/L (46-116); Anion Gap 5.3 mmol/L (3-11); BUN 27 mg/dL (7-18); Bilirubin, Total 0.4 mg/dL (0.2-1.0); CO2 28.7 mmol/L (21.0-32.0); CREATININE 1.2 mg/dL (0.55-1.02); Calcium 9.1 mg/dL (8.5-10.1); Calculated LDL 99 mg/dL (<100); Chloride 106 mmol/L (98-107); Cholesterol 195 mg/dL (<200); Estimated GFR 46.14 (mL/min/1.73m2); Glucose 99 mg/dL (74-106); HDL Cholesterol 45 mg/dL (40-60); Potassium 4.9 mmol/L (3.5-5.1); Sodium 140 mmol/L (136-145); Total Protein 7.1 g/dL (6.4-8.2); Triglyceride 259 mg/dL (<150)
[2020-08-07 11:20] LABS: C-Reactive Protein 1.24 mg/dL (0.0-0.3); Creatine Kinase 314 U/L (26-192); TSH 3.93 uIU/mL (0.36-3.74); Uric Acid 8.5 mg/dL (2.6-6.0)
[2020-08-07 11:33] LABS: Vitamin D 25 Total 39.3 ng/ml (30-100)
[2020-08-07 14:07] LABS: ESR 24 mm/hr (<or=30)
== END 2020-08-07 03:00 | disposition home or self-care (01) ==
LOC: LBO 02:59
PROVIDERS: PCP Student in an Organized Health Care Education/Training Program; Visit Provider Internal Medicine Rheumatology
DX: M06.09 Rheumatoid arthritis without rheumatoid factor, multiple sites (principal); E55.9 Vitamin D deficiency, unspecified; E11.69 Type 2 diabetes mellitus with other specified complication; Z79.899 Other long term (current) drug therapy; R74.8 Abnormal levels of other serum enzymes; M62.838 Other muscle spasm; M79.18 Myalgia, other site; N18.2 Chronic kidney disease, stage 2 (mild); M25.59 Pain in other specified joint
CPT/HCPCS: 36415; 80053; 80061; 82306; 82550; 85027; 85652; 83036; 84443; 84550; 85025; 86140

== ENCOUNTER 2020-08-25 03:42 | Outpatient (CLI) | payer MEDICARE, OTHER, SELFPAY ==
[2020-08-26 14:17] LABS: COVID-19 RT-PCR UVMMC Result Negative (Negative)
== END 2020-08-25 03:43 | disposition home or self-care (01) ==
LOC: LBO 03:42
PROVIDERS: PCP Student in an Organized Health Care Education/Training Program; Visit Provider Student in an Organized Health Care Education/Training Program
DX: Z20.822 Contact with and (suspected) exposure to COVID-19 (principal)
CPT/HCPCS: U0003; U0005

== ENCOUNTER 2020-12-31 18:56 | Outpatient (REF) | payer MEDICARE, SELFPAY ==
[2021-01-02 11:10] LABS: COVID-19 RT-PCR UVMMC Result Negative (Negative)
== END 2020-12-31 18:57 | disposition home or self-care (01) ==
LOC: LBN 18:56
PROVIDERS: PCP Student in an Organized Health Care Education/Training Program; Visit Provider Nurse Practitioner Family
DX: Z20.822 Contact with and (suspected) exposure to COVID-19 (principal)
CPT/HCPCS: U0003; U0005

== ENCOUNTER 2021-02-17 03:45 | Outpatient (CLI) | payer MEDICARE, SELFPAY ==
[2021-02-17 09:30] LABS: ALT 71 U/L (14-59); AST 56 U/L (15-37); Albumin 3.9 g/dL (3.4-5.0); Alkaline Phosphatase 158 U/L (46-116); Anion Gap 8.3 mmol/L (3-11); BUN 26 mg/dL (7-18); Bilirubin, Total 0.4 mg/dL (0.2-1.0); CO2 29.7 mmol/L (21.0-32.0); CREATININE 1.2 mg/dL (0.55-1.02); Calcium 8.9 mg/dL (8.5-10.1); Calculated LDL 122 mg/dL (<100); Chloride 105 mmol/L (98-107); Cholesterol 214 mg/dL (<200); Estimated GFR 46.14 (mL/min/1.73m2); Glucose 118 mg/dL (74-106); HDL Cholesterol 43 mg/dL (40-60); Magnesium 1.9 mg/dL (1.8-2.4); Potassium 3.8 mmol/L (3.5-5.1); Sodium 143 mmol/L (136-145); TSH (W/Ref FT4) 1.55 uIU/mL (0.36-3.74); Triglyceride 245 mg/dL (<150)
== END 2021-02-17 03:46 | disposition home or self-care (01) ==
LOC: LBO 03:45
PROVIDERS: PCP Student in an Organized Health Care Education/Training Program; Visit Provider Student in an Organized Health Care Education/Training Program
DX: E11.9 Type 2 diabetes mellitus without complications; K58.0 Irritable bowel syndrome with diarrhea; E86.0 Dehydration; N18.2 Chronic kidney disease, stage 2 (mild)
CPT/HCPCS: 36415; 80053; 80061; 83735; 84443

== ENCOUNTER 2021-02-25 03:12 | Outpatient (CLI) | payer MEDICARE, SELFPAY ==
--- NOTE | 2021-02-25 12:14 | DI.MAMMO_ITS ---
Exam(s) MAMMO SCREENING EXAM: MAMMO SCREENING CLINICAL HISTORY: SCREENING, Z12.39. TECHNIQUE: Bilateral full field digital CC and MLO mammographic images were obtained with 3D tomosyn thesis and utilizing computer aided detection (CAD). COMPARISON: Prior mammograms dating back to 2014, the most recent being December 2019. FINDINGS: No significant radiograph findings in left breast. In the right breast there is a well-defined 4 x 3 millimeter nodule located approximately 3.5 cm in f rom the nipple on the MLO view and and this nodule appears unchanged from 2016 and therefore benign. There are no new spiculated masses nor malignant appearing microcalcification groups. There is no significant architectural distortion nor skin thickening-retraction. IMPRESSION: Stable benign findings. No radiographic evidence of malignancy. BI-RADS Category 2 - Benign Findings Breast Density - Category B - Scattered areas of fibroglandular density Breast density Category C or D implies that the patient has dense breast tissue. Dense breast tissue can make it harder to find cancer on a mammogram. Dense breast tissue is also associated with an incr eased risk of breast cancer. This information about the result of the mammogram report was provided to the patient to raise their awareness. Use this report when you speak with the patient about their risks for breast cancer, which includes their family history. At that time, you may recommend additional screening tests (Ultrasoun d or MRI) as these tests may add significant information. A negative radiographic report should not delay biopsy if a dominant or clinically suspicious mass is present. Up to ten percent of cancers are not identified on mammography. A negative report may reinforce clinical impression. Adenosis and dense breasts may obscure an underlying neoplasm. False positive reports average 6 to 10%. Patient will receive a letter notifying them of these results.
== END 2021-02-25 03:32 ==
PROVIDERS: PCP Student in an Organized Health Care Education/Training Program; Visit Provider Nurse Practitioner Family
DX: Z12.31 Encounter for screening mammogram for malignant neoplasm of breast (principal)
CPT/HCPCS: 77063; 77067

== ENCOUNTER 2021-03-04 15:39 | Outpatient (REF) | payer MEDICARE, SELFPAY ==
[2021-03-06 14:50] LABS: COVID-19 RT-PCR UVMMC Result Negative (Negative)
== END 2021-03-04 15:40 | disposition home or self-care (01) ==
LOC: LBN 15:39
PROVIDERS: PCP Student in an Organized Health Care Education/Training Program; Referring Provider Nurse Practitioner; Visit Provider Nurse Practitioner
DX: Z20.822 Contact with and (suspected) exposure to COVID-19 (principal)
CPT/HCPCS: U0003

== ENCOUNTER 2021-04-21 15:17 | Outpatient (REF) | payer MEDICARE, SELFPAY | END 2021-04-21 15:18 | disposition home or self-care (01) | LOC: LBN 15:17 | PROVIDERS: PCP Student in an Organized Health Care Education/Training Program; Visit Provider Student in an Organized Health Care Education/Training Program | DX: L08.1 Erythrasma (principal) | CPT/HCPCS: 87070 ==

== ENCOUNTER 2021-05-01 10:03 | Outpatient (CLI) | payer MEDICARE, OTHER, SELFPAY ==
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
== END 2021-05-01 10:04 | disposition home or self-care (01) ==
LOC: DIORS 10:03
PROVIDERS: PCP Student in an Organized Health Care Education/Training Program; Referring Provider Student in an Organized Health Care Education/Training Program; Visit Provider Student in an Organized Health Care Education/Training Program
DX: Z87.81 Personal history of (healed) traumatic fracture (principal); M19.171 Post-traumatic osteoarthritis, right ankle and foot; M25.571 Pain in right ankle and joints of right foot
CPT/HCPCS: 99203; 73610

== ENCOUNTER 2021-06-09 13:23 | Outpatient (REF) | payer MEDICARE, OTHER, SELFPAY | END 2021-06-09 13:24 | disposition home or self-care (01) | LOC: LBN 13:23 | PROVIDERS: PCP Student in an Organized Health Care Education/Training Program; Visit Provider Student in an Organized Health Care Education/Training Program | DX: J34.0 Abscess, furuncle and carbuncle of nose (principal) | CPT/HCPCS: 87077; 87070; 87075; 87186 ==

== ENCOUNTER 2021-07-01 02:01 | Outpatient (CLI) | payer MEDICARE, OTHER, SELFPAY ==
--- NOTE | 2021-07-01 07:58 | DI.US_ITS ---
Exam(s) US SOFT TISS ABD WALL/LOW BACK EXAM: US SOFT TISS ABD WALL/LOW BACK CLINICAL HISTORY: evaluate for lipoma vs hernia vs other pathology,abd lump, r19.00. TECHNIQUE: Ultrasound was performed using standard protocol. COMPARISON: No exams were available for comparison FINDINGS: Sonographic assessment utilizing grayscale and color Doppler imaging was performed and targeted to th e area of clinical concern. There is a 2.3 x 0.8 x 2.3 cm isoechoic mass in the subcutaneous tissues in the anterior chest wall c orresponding to the palpable abnormality. The mass is avascular. No other cystic or solid masses ar e seen. Sonographically the finding is most suggestive of a lipoma. IMPRESSION: Findings suggestive of a subcutaneous lipoma. DATA REPOSITORY:
== END 2021-07-01 02:21 ==
PROVIDERS: PCP Student in an Organized Health Care Education/Training Program; Visit Provider Student in an Organized Health Care Education/Training Program
DX: D17.1 Benign lipomatous neoplasm of skin and subcutaneous tissue of trunk
CPT/HCPCS: 76705

== ENCOUNTER 2021-07-16 03:46 | Outpatient (CLI) | payer MEDICARE, OTHER, SELFPAY ==
--- NOTE | 2021-07-16 | DI.MRI_ITS ---
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 COMPARISON: CR XR ANKLE RT COMPLETE from 05/01/2021 FINDINGS: BONES/JOINTS: No fracture or contusion pattern. No bone lesions identified. No joint effusion is pres ent. Prominent calcaneal spurs, at the Achilles insertion and plantar aspects.. Spurring at the do rsal aspect of the talus. Degenerative changes of the ankle. Multiple bony densities beneath the ma lleoli. chronic deformity of the medial malleolus. Severe narrowing of the medial tibiotalar joint space with erosion of cartilage extending down to and involving underlying bone. LIGAMENTS: The tibiofibular and calcaneofibular ligaments are intact. The talofibular ligaments are i ntact. The deltoid ligament is intact. The syndesmosis is unremarkable. Sinus tarsi is normal. MUSCULOTENDINOUS STRUCTURES: Achilles tendon: Thickening and edema at the distal Achilles tendon. Partial tearing distally. Plantar fascia: Unremarkable. Anterior Extensor tendons: Unremarkable. Posterior Tibialis: Unremarkable. Flexor Digitorum longus: Unremarkable. Flexor Hallicus longus: Unremarkable. Peroneus longus: Unremarkable. Peroneus brevis:Unremarkable. SOFT TISSUES: Subcutaneous edema lower leg. 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 No visible retraction. 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 DATA REPOSITORY:
== END 2021-07-16 04:06 ==
PROVIDERS: PCP Student in an Organized Health Care Education/Training Program; Visit Provider Orthopaedic Surgery
DX: M76.61 Achilles tendinitis, right leg (principal); S86.011A Strain of right Achilles tendon, initial encounter; M19.071 Primary osteoarthritis, right ankle and foot; X58.XXXA Exposure to other specified factors, initial encounter
CPT/HCPCS: 73721

== ENCOUNTER 2021-08-19 03:00 | Outpatient (CLI) | payer MEDICARE, OTHER, SELFPAY ==
[2021-08-19 10:31] LABS: Anion Gap 7.4 mmol/L (3-11); BUN 25 mg/dL (7-18); CO2 27.6 mmol/L (21.0-32.0); CREATININE 1.3 mg/dL (0.55-1.02); Calcium 8.6 mg/dL (8.5-10.1); Chloride 108 mmol/L (98-107); Cholesterol 212 mg/dL (<200); Estimated GFR 41.92 (mL/min/1.73m2); Glucose 141 mg/dL (74-106); HDL Cholesterol 23 mg/dL (40-60); Potassium 4.9 mmol/L (3.5-5.1); Sodium 143 mmol/L (136-145); Triglyceride 638 mg/dL (<150)
[2021-08-19 10:51] LABS: LDL CHOLESTEROL 91 mg/dL (<100)
== END 2021-08-19 03:01 | disposition home or self-care (01) ==
LOC: LBO 03:00
PROVIDERS: PCP Student in an Organized Health Care Education/Training Program; Visit Provider Student in an Organized Health Care Education/Training Program
DX: E11.9 Type 2 diabetes mellitus without complications (principal); N28.9 Disorder of kidney and ureter, unspecified
CPT/HCPCS: 36415; 80048; 80061; 83721

== ENCOUNTER 2021-08-19 12:52 | Outpatient (REF) | payer MEDICARE, OTHER, SELFPAY ==
--- NOTE | 2021-08-19 10:30 | NASALBX_PTH ---
PATIENT: Martha Gann V LOC: N U#:[id number] AGE/SX: 61/F ROOM: RE08/19/[address]: Immanuel Grant MD : 1960 BED: DIS: 08/19/2021 SPEC #: [id number] RECD: 08/19/21 17:59 STATUS: MERLY REQ #: [id number] LUCINDA: 08/19/21 10:[address]: Immanuel Grant DEPT: Surgical Specimen RECD BY: Sharon Sagastume ENTERED: 08/19/21 18:02 SP TYPE: NASALBX OTHR DR: Lore Roman DO Tissues: 1 - MUCOSA, NOS Procedures: GROSS AND MICRO LEVEL 4 Comments: [id number]
== END 2021-08-19 12:53 | disposition home or self-care (01) ==
LOC: LBN 12:52
PROVIDERS: PCP Student in an Organized Health Care Education/Training Program; Visit Provider Otolaryngology
DX: J34.0 Abscess, furuncle and carbuncle of nose (principal); J34.89 Other specified disorders of nose and nasal sinuses; M06.09 Rheumatoid arthritis without rheumatoid factor, multiple sites
CPT/HCPCS: 88305

== ENCOUNTER 2021-09-21 18:50 | Outpatient (REF) | payer MEDICARE, OTHER, SELFPAY | END 2021-09-21 18:51 | disposition home or self-care (01) | LOC: LBN 18:50 | PROVIDERS: PCP Student in an Organized Health Care Education/Training Program; Visit Provider Otolaryngology | DX: J34.89 Other specified disorders of nose and nasal sinuses (principal) | CPT/HCPCS: 87077; 87070; 87186 ==

== ENCOUNTER 2021-11-04 02:09 | Outpatient (CLI) | payer MEDICARE, OTHER, SELFPAY ==
[2021-11-04 11:02] LABS: Anion Gap 6.9 mmol/L (3-11); BUN 19 mg/dL (7-18); CO2 27.1 mmol/L (21.0-32.0); CREATININE 1.4 mg/dL (0.55-1.02); Calcium 8.7 mg/dL (8.5-10.1); Chloride 107 mmol/L (98-107); Estimated GFR 38.49 (mL/min/1.73m2); Potassium 4.2 mmol/L (3.5-5.1); Sodium 141 mmol/L (136-145); TSH (W/Ref FT4) 2.32 uIU/mL (0.36-3.74)
[2021-11-04 11:35] LABS: Glucose 44 mg/dL (74-106)
== END 2021-11-04 02:10 | disposition home or self-care (01) ==
PROVIDERS: PCP Student in an Organized Health Care Education/Training Program; Referring Provider Student in an Organized Health Care Education/Training Program; Visit Provider Student in an Organized Health Care Education/Training Program
DX: E03.9 Hypothyroidism, unspecified (principal)
CPT/HCPCS: 36415; 80048; 84443

== ENCOUNTER 2021-12-09 03:45 | Outpatient (CLI) | payer MEDICARE, OTHER, SELFPAY | END 2021-12-09 03:46 | disposition home or self-care (01) | LOC: LBO 03:46 | PROVIDERS: PCP Student in an Organized Health Care Education/Training Program; Visit Provider Student in an Organized Health Care Education/Training Program ==

== ENCOUNTER 2021-12-11 19:41 | Emergency (ER) | payer MEDICARE, OTHER, SELFPAY ==
[2021-12-11 19:49] VITALS: BP 132/81; PULSE 86; RESP 16; TEMP 36.4; O2SAT 96
== END 2021-12-11 22:14 | disposition left before discharge ==
PROVIDERS: PCP Student in an Organized Health Care Education/Training Program
DX: Z53.21 Procedure and treatment not carried out due to patient leaving prior to being seen by health care provider (principal)

== ENCOUNTER 2022-01-30 14:52 | Emergency (ER) | payer MEDICARE, OTHER, SELFPAY ==
[2022-01-30 15:05] VITALS: BP 128/66; PULSE 85; RESP 22; TEMP 36.7; O2SAT 97
--- NOTE | 2022-01-30 15:19 | ED.GENADUL_ITS ---
Discharge Plan Disposition Patient Disposition: HOME Condition: Stable Discharge Details Clinical Impression: Abrasion, corneal, Subconjunctival hemorrhage Primary Care Provider: Lore Roman ED Provider: Latesha Garibay Home Meds and New Rx's Prescriptions: Continued Belsomra 20 mg tablet 20 mg PO HS Qty: 90 3RF Kevzara 150 mg/1.14 mL pen injector 150 mg subcut Q2W Novolog PenFill U-100 Insulin 100 unit/mL cartridge 48 unit subcut TID MDD 90 units Qty: 135 3RF Tresiba FlexTouch U-200 200 unit/mL (3 mL) insulin pen 150 unit subcut DAILY Qty: 63 3RF Rx Instructions: 3-month supply (twenty-one (3ml) pens) clonazepam 0.5 mg tablet 0.5 mg PO QHS Qty: 84 2RF Rx Instructions: administer 30 minutes before bedtime fenofibrate nanocrystallized [Tricor] 48 mg tablet 48 mg PO DAILY Qty: 90 0RF Rx Instructions: Re-start for cholesterol Motegrity 1 mg tablet 2 mg PO DAILY Qty: 90 0RF Rx Instructions: Started by Dr. Emmie PUGH trimethobenzamide 300 mg capsule 300 mg PO Q8H PRN (Reason: nausea and vomiting) Qty: 180 3RF Breo Ellipta 100-25 mcg/dose blister with device 1 inh IH DAILY Qty: 180 3RF sumatriptan succinate 100 mg tablet 100 mg PO PRN Qty: 18 3RF methocarbamol 750 mg tablet 1,500 mg PO Q8H MDD 4.5g Qty: 540 2RF Rx Instructions: 90 day mupirocin 2 % ointment 1 applic topical TID Qty: 22 1RF Rx Instructions: to injured finger levothyroxine 50 mcg tablet 50 mcg PO DAILY Qty: 90 3RF (DME) pen needle, diabetic [BD Ultra-Fine Sobia Pen Needle] 32 gauge x 32 needle See Rx Instructions .ROUTE .MEDSUPPLY Qty: 360 3RF Rx Instructions: Pt to use with Novolog tid and daily with Tresiba polyethylene glycol 3350 [Miralax] 17 gram/dose powder 8.5 g PO DAILY Rx Instructions: 06/04/21 [facility] magnesium oxide 400 mg magnesium capsule 400 mg PO DAILY Aspercreme (lidocaine) 4 % aerosol,spray 2 spray topical BID Qty: 113 1RF Rx Instructions: for achilles insertion pain sarilumab 200 mg/1.14 mL pen injector 200 mg subcut Q2W Rx Instructions: 11/12/21 [facility] [place] note lubiprostone 24 mcg capsule 24 mcg PO BID Rx Instructions: 11/12/21 [facility] notes dicyclomine 20 mg tablet 20 mg PO Q6H Rx Instructions: 11/12/21 per [facility] clindamycin phosphate 1 % gel 1 applic topical QAM AND QHS Qty: 360 2RF Rx Instructions: Apply to rash @ groin area, B/L ergocalciferol (vitamin D2) 1,250 mcg (50,000 unit) capsule 50,000 unit PO DAILY Qty: 90 3RF Rx Instructions: Continue 3/week per history furosemide 80 mg tablet 80 mg PO DAILY Qty: 90 3RF lidocaine 5 % adhesive patch,medicated 3 patch topical DAILY Qty: 15 3RF Rx Instructions: leave on most painful area for up to 12 hrs losartan 25 mg tablet 25 mg PO DAILY Qty: 90 3RF montelukast 10 mg tablet 10 mg PO HS Qty: 90 3RF nystatin 100,000 unit/mL suspension 1 ml buccal QID Qty: 100 3RF Rx Instructions: administer 1/2 of dose in each side of the mouth (Hx chronic thrush) pantoprazole 40 mg tablet,delayed release (DR/EC) 40 mg PO DAILY Qty: 90 3RF potassium chloride 10 mEq capsule, extended release 20 meq PO DAILY Qty: 180 3RF tramadol 50 mg tablet 50 mg PO BID MDD 100mg PRN (Reason: pain) Qty: 180 0RF venlafaxine [Effexor XR] 150 mg capsule,extended release 24hr 150 mg PO DAILY Qty: 90 3RF Viibryd 20 mg tablet 20 mg PO DAILY Qty: 90 3RF topiramate [Topamax] 50 mg tablet 50 mg PO BID Qty: 180 3RF ondansetron HCl 8 mg tablet 8 mg PO Q8H PRN (Reason: nausea and vomiting) Qty: 51 3RF Rx Instructions: Hx PRN use for nausea gabapentin 600 mg tablet 600 mg PO TID Qty: 270 3RF albuterol sulfate [ProAir HFA] 90 mcg/actuation HFA aerosol inhaler 1 inh Inhalation PRN Qty: 25.5 3RF Rx Instructions: 3 Canisters please sucralfate 1 gram tablet 1 g PO BID Qty: 30 1RF Rx Instructions: try as slurry, crushing tab in water fluconazole 150 mg tablet 150 mg PO Q3D Qty: 2 1RF Rx Instructions: Do not take with Ondansetron or Belsomra. Discharge Instructions Additional Instructions: Your exam shows several corneal abrasions as we discussed. Please apply the drops four times daily for the next 5 days. Please call [facility] Tuesday morning to schedule follow up appointment Tuesday or Tuesday. If you develop fevers/chills, increased pain, visual changes, discharge or other new/worsening symptoms please seek care urgently once again. Referrals: [facility] [place] [Outside] Discharge Data Discharge Date/Time-TO BE ENTERED AT DEPARTURE: 01/30/22 16:04 Medical Decision Making Ptaaron is a pleasant 61 year old female presenting today with chief complaint of FB sensation to left eye. REports that at 1425 she accidentally caughter herself with a saw blade when she was removing the battery from her saw. Denies change in vision. Denies TORRES, N/V. UTD on tetanus. Denies other injury at the time of the incident. Denies using contacts or other corrective lenses. Has protuberant eyes at baseline, denies change in this. DEnies pain but has a FB sensation and noted conjunctival hemorrhage prompting her to come in for evaluation. Typically seen by [facility] for routine eye maintenance. On exam, patient appears nontoxc. No trauma to the lid. She has conjunctival hemorrhage along the inferior 1/2 of the eye. PEERLA. EOM intact and nonpainful. No objective FB. Applied tetracaine and fluorosceine. No Sidel sign, no FB with slit lamp. Several small, superficial linear markings consistent with hx noted. Likely, struck with the side that has severe teeth on the blade. Patient and I discussed care for her corneal abrasions. Again, no evidence of full thickness tearing. Negative Colleen sign. Vision intact. No TORRES. Will treat with sulfacetamide drops based on allergies. Patient sees [facility] [place]. I encouraged that she f/u Tuesday, she will call to schedule appointment. Strict return precautiosn discussed. All of her quesitons and concerns were addressed, they are in agreement with this plan. Tetanus UTD within last 3 years. HPI General Date/Time Provider Initiated Documentation: 01/30/22 15:19 . Limitations to Documentation: no limitations . Information obtained by: patient and RN notes reviewed . History of Present Illness 61 year old F presents to the emergency department with the chief complaint of left eye FB sensation, described as mild, with intensity rated at 2. Quality is described as other (FB sensation), and is localized to the eyes. Patient reports no radiation. Patient started experiencing this hour(s) and it has been constant. No relieving factors improve symptom(s), Other factors that worsen symptoms (worse with blinking but no pain with EOM) . Patient notes no other symptoms. (denies cahgne in vision). Patient did receive the following treatments prior to arrival, none Related Data Home Medications Medication Instructions Recorded Confirmed methocarbamol 750 mg tablet 1,500 mg PO Q8H #540 tabs 06/07/19 12/11/21 prucalopride 1 mg tablet 2 mg PO DAILY #90 tabs 08/31/19 12/11/21 (Motegrity) mupirocin 2 % topical ointment 1 applic topical TID #22 grams 03/05/20 12/11/21 suvorexant 20 mg tablet (Belsomra) 20 mg PO HS #90 tabs 10/04/20 12/11/21 trimethobenzamide 300 mg capsule 300 mg PO Q8H PRN nausea and 02/25/21 12/11/21 vomiting #180 caps levothyroxine 50 mcg tablet 50 mcg PO DAILY #90 tabs 03/27/21 12/03/21 fluticasone furoate 100 1 inh inhalation DAILY #180 ea 04/25/21 12/11/21 mcg-vilanterol 25 mcg/dose inhalation powder (Breo Ellipta) sumatriptan succinate 100 mg tablet 100 mg PO PRN migraine headache 04/25/21 12/11/21 #18 tabs pen needle, diabetic 32 gauge x #360 ea 06/11/21 12/11/21 (BD Ultra-Fine Sobia Pen Needle) polyethylene glycol 3350 17 8.5 g PO DAILY 06/15/21 12/11/21 gram/dose oral powder (Miralax) sarilumab 150 mg/1.14 mL 150 mg subcut Q2W 08/11/21 12/11/21 subcutaneous pen injector (Kevzara) insulin aspart U-100 100 unit/mL 48 unit (0.48 mL) subcut TID #135 08/12/21 12/11/21 subcutaneous cartridge (Novolog mL PenFill U-100 Insulin aspart) insulin degludec 200 unit/mL (3 150 unit (0.75 mL) subcut DAILY 08/12/21 12/11/21 mL) subcutaneous pen (Tresiba #63 mL FlexTouch U-200 insulin) magnesium oxide 400 mg PO DAILY 08/13/21 12/11/21 clonazepam 0.5 mg tablet 0.5 mg PO QHS #84 tabs 09/08/21 12/11/21 lidocaine 4 % topical spray 2 spray topical BID #113 grams 09/14/21 12/11/21 (Aspercreme (lidocaine)) dicyclomine 20 mg tablet 20 mg PO Q6H 11/18/21 12/11/21 lubiprostone 24 mcg capsule 24 mcg PO BID 11/18/21 12/11/21 sarilumab 200 mg/1.14 mL 200 mg subcut Q2W 11/18/21 12/11/21 subcutaneous pen injector fenofibrate nanocrystallized 48 mg 48 mg PO DAILY #90 tabs 12/03/21 12/11/21 tablet (Tricor) albuterol sulfate 90 mcg/actuation 1 inh inhalation PRN shortness of 12/06/21 12/11/21 aerosol inhaler (ProAir HFA) breath or wheezing #25.5 grams clindamycin phosphate 1 % topical 1 applic topical QAM AND QHS #360 12/06/21 12/11/21 gel grams ergocalciferol (vitamin D2) 1,250 50,000 unit PO DAILY #90 caps 12/06/21 12/11/21 mcg (50,000 unit) capsule furosemide 80 mg tablet 80 mg PO DAILY #90 tabs 12/06/21 12/11/21 gabapentin 600 mg tablet 600 mg PO TID #270 tabs 12/06/21 12/11/21 lidocaine 5 % topical patch 3 patch topical DAILY #15 ea 12/06/21 12/11/21 losartan 25 mg tablet 25 mg PO DAILY #90 tabs 12/06/21 12/11/21 montelukast 10 mg tablet 10 mg PO HS #90 tabs 12/06/21 12/11/21 nystatin 100,000 unit/mL oral 1 ml buccal QID #100 mL 12/06/21 12/11/21 suspension ondansetron HCl 8 mg tablet 8 mg PO Q8H PRN nausea and 12/06/21 12/11/21 vomiting #51 tabs pantoprazole 40 mg tablet,delayed 40 mg PO DAILY #90 tabs 12/06/21 12/11/21 release potassium chloride 10 mEq 20 meq PO DAILY #180 caps 12/06/21 12/11/21 capsule,extended release topiramate 50 mg tablet (Topamax) 50 mg PO BID #180 tabs 12/06/21 12/11/21 tramadol 50 mg tablet 50 mg PO BID PRN pain #180 tabs 12/06/21 12/11/21 venlafaxine 150 mg 150 mg PO DAILY #90 caps 12/06/21 12/11/21 capsule,extended release 24 hr (Effexor XR) vilazodone 20 mg tablet (Viibryd) 20 mg PO DAILY #90 tabs 12/06/21 12/11/21 sucralfate 1 gram tablet 1 g PO BID #30 tabs 12/18/21 fluconazole 150 mg tablet 150 mg PO Q3D 2 doses #2 tabs 01/17/22 Previous Rx's Medication Instructions Recorded methocarbamol 750 mg tablet 1,500 mg PO Q8H #540 tabs 06/07/19 prucalopride 1 mg tablet 2 mg PO DAILY #90 tabs 08/31/19 (Motegrity) mupirocin 2 % topical ointment 1 applic topical TID #22 grams 03/05/20 suvorexant 20 mg tablet (Belsomra) 20 mg PO HS #90 tabs 10/04/20 trimethobenzamide 300 mg capsule 300 mg PO Q8H PRN nausea and 02/25/21 vomiting #180 caps levothyroxine 50 mcg tablet 50 mcg PO DAILY #90 tabs 03/27/21 fluticasone furoate 100 1 inh inhalation DAILY #180 ea 04/25/21 mcg-vilanterol 25 mcg/dose inhalation powder (Breo Ellipta) sumatriptan succinate 100 mg tablet 100 mg PO PRN migraine headache 04/25/21 #18 tabs pen needle, diabetic 32 gauge x #360 ea 06/11/21 (BD Ultra-Fine Sobia Pen Needle) insulin aspart U-100 100 unit/mL 48 unit (0.48 mL) subcut TID #135 08/12/21 subcutaneous cartridge (Novolog mL PenFill U-100 Insulin aspart) insulin degludec 200 unit/mL (3 150 unit (0.75 mL) subcut DAILY 08/12/21 mL) subcutaneous pen (Tresiba #63 mL FlexTouch U-200 insulin) clonazepam 0.5 mg tablet 0.5 mg PO QHS #84 tabs 09/08/21 lidocaine 4 % topical spray 2 spray topical BID #113 grams 09/14/21 (Aspercreme (lidocaine)) fenofibrate nanocrystallized 48 mg 48 mg PO DAILY #90 tabs 12/03/21 tablet (Tricor) albuterol sulfate 90 mcg/actuation 1 inh inhalation PRN shortness of 12/06/21 aerosol inhaler (ProAir HFA) breath or wheezing #25.5 grams clindamycin phosphate 1 % topical 1 applic topical QAM AND QHS #360 12/06/21 gel grams ergocalciferol (vitamin D2) 1,250 50,000 unit PO DAILY #90 caps 12/06/21 mcg (50,000 unit) capsule furosemide 80 mg tablet 80 mg PO DAILY #90 tabs 12/06/21 gabapentin 600 mg tablet 600 mg PO TID #270 tabs 12/06/21 lidocaine 5 % topical patch 3 patch topical DAILY #15 ea 12/06/21 losartan 25 mg tablet 25 mg PO DAILY #90 tabs 12/06/21 montelukast 10 mg tablet 10 mg PO HS #90 tabs 12/06/21 nystatin 100,000 unit/mL oral 1 ml buccal QID #100 mL 12/06/21 suspension ondansetron HCl 8 mg tablet 8 mg PO Q8H PRN nausea and 12/06/21 vomiting #51 tabs pantoprazole 40 mg tablet,delayed 40 mg PO DAILY #90 tabs 12/06/21 release potassium chloride 10 mEq 20 meq PO DAILY #180 caps 12/06/21 capsule,extended release topiramate 50 mg tablet (Topamax) 50 mg PO BID #180 tabs 12/06/21 tramadol 50 mg tablet 50 mg PO BID PRN pain #180 tabs 12/06/21 venlafaxine 150 mg 150 mg PO DAILY #90 caps 12/06/21 capsule,extended release 24 hr (Effexor XR) vilazodone 20 mg tablet (Viibryd) 20 mg PO DAILY #90 tabs 12/06/21 sucralfate 1 gram tablet 1 g PO BID #30 tabs 12/18/21 fluconazole 150 mg tablet 150 mg PO Q3D 2 doses #2 tabs 01/17/22 Allergies Allergy/AdvReac Type Severity Reaction Status Date / Time adhesive tape Allergy Skin Rash Verified 12/11/21 19:52 cefaclor [From Ceclor] Allergy Verified 12/11/21 19:52 erythromycin base Allergy breathing Verified 12/11/21 19:52 problems hydromorphone [From Dilaudid] Allergy I stop Verified 12/11/21 19:52 breathing iodine Allergy rash & Verified 12/11/21 19:52 breathing problems lamotrigine Allergy rash, Verified 12/11/21 19:52 asthma levofloxacin [From Levaquin] Allergy turns my Verified 12/11/21 19:52 legs blue and my blood from my legs pools meperidine [From Demerol] Allergy severe Verified 12/11/21 19:52 itching morphine Allergy breathing Verified 12/11/21 19:52 problems promethazine [From Phenergan] Allergy facial Verified 12/11/21 19:52 droop & tick vancomycin Allergy Verified 12/11/21 19:52 scopolamine AdvReac Verified 12/11/21 19:52 urea Allergy skin Uncoded 12/11/21 19:52 blisters General Stated Complaint: EyeProblem PURA: 4 Review of Systems Constitutional Constitutional: Reports as per HPI, Denies fever(s) and Denies headache(s) Eyes Eyes: Reports as per HPI ENT Ears, Nose, Mouth, and Throat: Denies headache(s) Cardiovascular Cardiovascular: Reports as per HPI and Denies lightheadedness Respiratory Respiratory: Denies cough Gastrointestinal Gastrointestinal: Denies nausea and Denies vomiting Integumentary/Breasts Skin/Breast: Reports as per HPI, Denies rash, Denies skin pain and Denies skin swelling Neurologic Neurologic: Denies headache(s) and Denies radicular pain PFSH All Active Problems (Updated 01/30/22 @ 15:49 by ALLEY Reid) Abrasion, corneal (Acute) Subconjunctival hemorrhage (Acute) Diabetic retinopathy of both eyes without macular edema associated with type 2 diabetes mellitus (Acute 12/23/21) moderate Cervical spondylosis (Acute) 08/13/21 [facility] [place] - Lumbar spondylosis Plantar fasciitis of right foot (Acute) Insertional Achilles tendinopathy (Acute) R side, MRI shows arthritis of this joint as well. IBS (irritable bowel syndrome) (Chronic) Chronic gastroesophageal reflux disease (Acute) Gastric paresis (Acute) Disability Irritable bowel syndrome with diarrhea (Acute ~06/15/21) Abdominal lump (Acute) Central, sub-sternal .. mild tenderness .. growing larger .. lipoma vs hernia? Ulcer of nose (Acute) Right nare, acute on chronic Nonspecific reactive hepatitis (Acute) 05/26/21 [facility] [place] Elevated LFTs (Acute) 05/26/21 [facility] [place] Muscle stiffness (Acute) 05/26/21 [facility] [place] Fasciculations (Acute) 05/26/21 [facility] [place] High risk medication use (Acute) 05/26/21 [facility] [place] Osteoarthritis of multiple joints (Acute) 05/26/21 [facility] [place] Muscle cramps (Acute) 05/26/21 [facility] [place] 08/13/21 [facility] - muscle spasm Post-traumatic osteoarthritis, right ankle and foot (Acute) Diabetes (Chronic) A1C 6.7 01/26/19 DM > 30 years, with nausea 2' gastroparesis Intertrigo (Chronic) Possible Erythrasmus, acute on chronic .. CLindamycin seems to be working, 04/2021. Hypothyroid (Chronic) ID per elevated TSH, 07/2020 ..Tolerating levothyr. Review w/ Endocrine? BMI greater than 40 (Acute) Chronic kidney disease, stage 2 (mild) (Chronic) Hx Nephro Eval (TX), stable. GFR 46, 02/2021 (@ baseline per July 2020, but higher than 2020). Fibromyalgia (Acute) Chronic pain (Chronic) Elevated CPK (Acute) 05/11/2019 [facility] [facility] Rheumatoid arthritis (Chronic) [facility] .. Xeljanz, Methotrexate, Prednisone PRN Primary generalized (osteo)arthritis (Acute) 05/11/2019 [facility]. Neurodermatitis (Acute) Unspecified corneal ulcer, left eye (Acute) Dr. 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 History of fracture of right ankle Laceration left index finger Nasal vestibulitis 08/19/21 Dr Grant, [place] nasal biopsy done Surgical History (Updated 01/14/22 @ 17:09 by Chinyere Gomez RN) H/O Achilles tendon repair (~2016) H/O Achilles tendon repair (12/2021) Right repair of insertional achilles tendon rupture and resection of Rubin deformity, excision of os trigonum, FHL transfer, and gastroc slide H/O hernia repair (~2014) History of carpal tunnel surgery (~2005) bilateral History of cholecystectomy History of gastric bypass (~2003) History of thumb surgery (~2014) bilateral S/P colonoscopy 08/03/19 [facility] 2-3 years S/P endoscopy 08/03/19 [facility] Family History Mother Diabetes Hypertension Brother Substance abuse Asthma Sister Substance abuse Asthma Anxiety Other S/P endoscopy Social History Smoking/Tobacco Use Status: Never Smoking risk assessment performed?: Yes Alcohol Intake: never Drug use: Never Substance use type: does not use Adopted: Yes Caregiver/Support person: Yes Foster care: No Household members: friend(s) Housing: house Number of Children: 0 Do you need help understanding health information?: Never current occupation: Disabled Do you think of yourself as: lesbian/diana/homosexual Current gender identity: female What is your relationship status?: living with partner Panel score (0-1 are the most socially isolated patients): 1 What type of physical activity do you participate in: none Duration: < 15 minutes/day Seatbelt use: always Do you feel safe at home: Yes Do you feel safe in your relationship?: Yes Exam Const General: cooperative, healthy appearing, comfortable, no acute distress, well developed and well groomed Nutritional Appearance: well nourished and overweight Orientation: alert, awake and oriented x3 HENMT Head: normal to inspection, normocephalic and atraumatic Ears: hearing grossly normal bilaterally and external ears normal General nose exam: external nose normal and nares normal Face and sinus: normal facial exam and face symmetric Mouth: oral mucosae normal, lip normal and moist mucous membranes Eyes Visual Calderon: normal visual calderon by confrontation Alignment and Position: alignment normal and position normal Periorbital: periorbital findings normal Eyelids: eyelids normal Conjunctivae: conjunctival abnormality left subconjunctival hemorrhage (along inferior half) Cornea: corneas abnormal on the left (negative colleen sign) fluorescein used and abrasion (3 linear abrasions); no contact lens present, without diffuse punctate uptake, without dendrites present, without edema, with no foreign body noted and without ulcerations and fluorescein used Pupils: PERRL, normal by confrontation and accommodation normal EOM: EOM intact bilaterally Resp Effort & Inspection: normal respiratory effort, able to speak in complete sentences and no respiratory distress Skin General skin exam: no rashes or lesions noted Neuro General: patient alert, patient awake and patient oriented x3 Cranial Nerves: CN's II-XI intact bilaterally Cognition: normal cognition Speech: speech normal Gait: normal gait Psych Appearance: grossly normal and well kempt Mental Status: mental status grossly normal Speech and Movement: speech and movement normal Course Vital Signs Vital signs: Vital Signs Temperature 36.7 C 01/30/22 15:05 Pulse 85 01/30/22 15:05 Respiratory Rate 22 01/30/22 15:05 Blood Pressure 128/66 01/30/22 15:05 Pulse Oximetry 97 01/30/22 15:05 Temperature 36.7 C 01/30/22 15:05 Temperature Source Oral 01/30/22 15:05 Pulse 85 01/30/22 15:05 Respiratory Rate 22 01/30/22 15:05 Respiratory Effort 01/30/22 15:05 Blood Pressure 128/66 01/30/22 15:05 Blood Pressure Position Supine 01/30/22 15:05 Pulse Oximetry 97 01/30/22 15:05 Oxygen Delivery Method Room Air 01/30/22 15:05 Oxygen Flow Rate 0 01/30/22 15:05 Pain Level 2 01/30/22 15:05
== END 2022-01-30 16:04 | disposition home or self-care (01) ==
PROVIDERS: Emergency Provider Physician Assistant; PCP Student in an Organized Health Care Education/Training Program
DX: S05.02XA Injury of conjunctiva and corneal abrasion without foreign body, left eye, initial encounter (principal); H11.32 Conjunctival hemorrhage, left eye; X58.XXXA Exposure to other specified factors, initial encounter
CPT/HCPCS: 99283; 99284

== ENCOUNTER 2022-02-08 09:30 | Emergency (ER) | payer MEDICARE, OTHER, SELFPAY ==
[2022-02-08 09:33] VITALS: BP 152/70; PULSE 98; RESP 16; TEMP 36.5; O2SAT 98
--- NOTE | 2022-02-08 10:19 | DI.US_ITS ---
Exam(s) US LOWER EXTREMITY VENOUS RT EXAM: US LOWER EXTREMITY VENOUS RT CLINICAL HISTORY: swelling. TECHNIQUE: Lower extremity venous ultrasound performed using grayscale, color-flow, and spectral Do ppler analysis. COMPARISON: No exams were available for comparison FINDINGS: The common femoral, femoral and popliteal veins demonstrate normal compressibility, augmentation, and color Doppler. The posterior tibial veins are patent. No saphenous vein thrombosis or other superfi cial venous thrombosis is seen. There is a Ahmadi's cyst containing hemorrhage or debris measuring 5 x 1.6 x 4.2 cm. There is also an elongated fluid collection in the calf measuring 6 x 2 x 5 cm.. Th is could represent a ruptured Ahmadi's cyst or could be related to the patient's prior Achilles surger y. IMPRESSION: Ahmadi's cyst and calf fluid collection. No evidence of DVT. DATA REPOSITORY:
--- NOTE | 2022-02-08 10:22 | W.ED.GENAD ---
Discharge Plan Disposition Patient Disposition: HOME Discharge Details Clinical Impression: Rash Primary Care Provider: Lore Roman ED Provider: Lillian Blanco Home Meds and New Rx's Prescriptions: Continued Belsomra 20 mg tablet 20 mg PO HS Qty: 90 3RF Kevzara 150 mg/1.14 mL pen injector 150 mg subcut Q2W Novolog PenFill U-100 Insulin 100 unit/mL cartridge 48 unit subcut TID MDD 90 units Qty: 135 3RF Tresiba FlexTouch U-200 200 unit/mL (3 mL) insulin pen 150 unit subcut DAILY Qty: 63 3RF Rx Instructions: 3-month supply (twenty-one (3ml) pens) clonazepam 0.5 mg tablet 0.5 mg PO QHS Qty: 84 2RF Rx Instructions: administer 30 minutes before bedtime Motegrity 1 mg tablet 2 mg PO DAILY Qty: 90 0RF Rx Instructions: Started by Dr. Emmie PUGH trimethobenzamide 300 mg capsule 300 mg PO Q8H PRN (Reason: nausea and vomiting) Qty: 180 3RF Breo Ellipta 100-25 mcg/dose blister with device 1 inh IH DAILY Qty: 180 3RF sumatriptan succinate 100 mg tablet 100 mg PO PRN Qty: 18 3RF methocarbamol 750 mg tablet 1,500 mg PO Q8H MDD 4.5g Qty: 540 2RF Rx Instructions: 90 day mupirocin 2 % ointment 1 applic topical TID Qty: 22 1RF Rx Instructions: to injured finger (DME) pen needle, diabetic [BD Ultra-Fine Sobia Pen Needle] 32 gauge x 5/32 needle See Rx Instructions .ROUTE .MEDSUPPLY Qty: 360 3RF Rx Instructions: Pt to use with Novolog tid and daily with Tresiba polyethylene glycol 3350 [Miralax] 17 gram/dose powder 8.5 g PO DAILY Rx Instructions: 06/04/21 [facility] [place] [facility] magnesium oxide 400 mg magnesium capsule 400 mg PO DAILY Aspercreme (lidocaine) 4 % aerosol,spray 2 spray topical BID Qty: 113 1RF Rx Instructions: for achilles insertion pain sarilumab 200 mg/1.14 mL pen injector 200 mg subcut Q2W Rx Instructions: 11/12/21 [facility] [place] lubiprostone 24 mcg capsule 24 mcg PO BID Rx Instructions: 11/12/21 [facility] [place] dicyclomine 20 mg tablet 20 mg PO Q6H Rx Instructions: 11/12/21 [facility] [place] clindamycin phosphate 1 % gel 1 applic topical QAM AND QHS Qty: 360 2RF Rx Instructions: Apply to rash @ groin area, B/L ergocalciferol (vitamin D2) 1,250 mcg (50,000 unit) capsule 50,000 unit PO DAILY Qty: 90 3RF Rx Instructions: Continue 3/week per history furosemide 80 mg tablet 80 mg PO DAILY Qty: 90 3RF lidocaine 5 % adhesive patch,medicated 3 patch topical DAILY Qty: 15 3RF Rx Instructions: leave on most painful area for up to 12 hrs losartan 25 mg tablet 25 mg PO DAILY Qty: 90 3RF montelukast 10 mg tablet 10 mg PO HS Qty: 90 3RF nystatin 100,000 unit/mL suspension 1 ml buccal QID Qty: 100 3RF Rx Instructions: administer 1/2 of dose in each side of the mouth (Hx chronic thrush) pantoprazole 40 mg tablet,delayed release (DR/EC) 40 mg PO DAILY Qty: 90 3RF potassium chloride 10 mEq capsule, extended release 20 meq PO DAILY Qty: 180 3RF tramadol 50 mg tablet 50 mg PO BID MDD 100mg PRN (Reason: pain) Qty: 180 0RF venlafaxine [Effexor XR] 150 mg capsule,extended release 24hr 150 mg PO DAILY Qty: 90 3RF Viibryd 20 mg tablet 20 mg PO DAILY Qty: 90 3RF topiramate [Topamax] 50 mg tablet 50 mg PO BID Qty: 180 3RF ondansetron HCl 8 mg tablet 8 mg PO Q8H PRN (Reason: nausea and vomiting) Qty: 51 3RF Rx Instructions: Hx PRN use for nausea gabapentin 600 mg tablet 600 mg PO TID Qty: 270 3RF albuterol sulfate [ProAir HFA] 90 mcg/actuation HFA aerosol inhaler 1 inh Inhalation PRN Qty: 25.5 3RF Rx Instructions: 3 Canisters please sucralfate 1 gram tablet 1 g PO BID Qty: 30 1RF Rx Instructions: try as slurry, crushing tab in water No Action fenofibrate nanocrystallized [Tricor] 48 mg tablet 48 mg PO DAILY Qty: 90 3RF Rx Instructions: Re-start for cholesterol ondansetron HCl 4 mg tablet 8 mg PO Q8H Qty: 90 1RF glucagon 3 mg/actuation spray,non-aerosol 3 mg intranasal ONCE Qty: 2 1RF Rx Instructions: as a single dose glucagon 1 mg/0.2 mL solution 1 mg subcut Q20M PRN (Reason: hypoglycemia) Qty: 0.2 1RF Rx Instructions: until target blood sugar attained Discharge Instructions Instructions: Acute Rash (ED) Additional Instructions: Caring for Your Incision Pain Control Use ice!? Ice keeps the swelling down and swelling is what causes pain.? Never apply ice directly to the skin.? Wrap it in a towel or cloth.? Apply ice 20 minutes on and 20 minutes off for pain control.? Use as needed. Take tylenol 500 mg by mouth with food every 4 hours as needed for pain. Or ibuprofen 600 mg by mouth with food every 6 hours as needed for pain.? Do not take tylenol if you have a history of heavy drinking , hepatits C or liver problems.? Do not take ibuprofen if you have a history of stomach ulcers/problems, bleeding problem or kidney issues. Home care ? Always wash your hands before touching your incision. ? Keep the incision clean, dry, and out of water, keep the incision out of water. ? Do not to pick at the scabs. Scabs help protect the wound. ? You can take a shower in 24 hours and wash the incision with soap and water. Pat dry/don?t scrub. No swimming or hot tubs for two weeks. ? Pat stitches dry if they get wet. Don't rub. ? Check the incision site daily for pain, redness, drainage, swelling, or separation of the incision edges. ? If there is a bandage (dressing) over the incision, change this every 24 hours as instructed by your provider. Using clean hands change the dressing as directed by your healthcare provider. Always wash your hands before changing your dressing. ? Make sure any clothing that touches the incision is loose-fitting. This will prevent rubbing. ? Try to avoid from rough play, contact sports, or physical activities for two weeks. This can put you at risk of opening the incision. ? Make sure you avoid doing things that could cause dirt or sweat to get in or on the incision. As your incision heals, the skin may appear pink or red. It may also feel slightly bumpy or raised. This is called a healing ridge. Over time, the color should fade and the raised skin will become less noticeable. ? Follow-up care -[place] or sutures generally need to be removed in 7-10 days.?? Be sure to return for suture or staple removal as directed. ? When to seek medical care ? More pain, redness, swelling, bleeding, or foul-smelling discharge around the incision area ? Fever of 101?F (38.3?C) or higher, or as directed by your child's healthcare provider ? Shaking chills ? Vomiting or nausea that doesn?t go away ? Numbness, coldness, or tingling around the incision area, or changes in skin color ? Opening of the sutures or wound Stitches or luz maria come apart or fall out or surgical tape falls off before 7 days, or as directed by your healthcare provider [facility] to make appt w/ Dr. Garcia in 10 days. [phone] Please return immediately to the emergency department if you develop any new or worsening symptoms, if your condition does not improve as expected, or if you become otherwise concerned. It is extremely important that you call soon as possible to make an appointment to be seen in follow-up for this visit by your primary care doctor and by Dr. Garcia of surgery. Referrals: Lore Roman DO [Primary Care Provider] - Irene Garcia DO [OSTEOPATHIC DOCTOR] - Discharge Data Discharge Date/Time-TO BE ENTERED AT DEPARTURE: 02/08/22 14:57 Medical Decision Making Concern for autoimmune process, medication reaction, vasculitis, electrolyte/metabolic derangement, cellulitis, DVT, other. Exam/history at this time is not consistent with sepsis, necrotizing fasciitis, SSS, Yadav-Lyle Syndrome, TEN. Plan for screening labs, ultrasound. Ultrasound shows fluid collection posterior calf, postsurgical versus other. I discussed patient presentation and results with with Dr. Garcia of surgery, who will see the patient at bedside. Per Dr. Garcia fluid collection is postoperative and likely unrelated, no further evaluation recommended for this. Dr. Garcia performed biopsy of rash, ordered IV Bactrim and p.o. Bactrim for 7 days. Patient has follow-up with her in 7 days. At this time unclear etiology of rash, no acute emergent life-threatening medical condition identified. Patient eating and drinking without issue in the ED, ambulating to bathroom without issue. I had a discussion with Patient regarding return to emergency department precautions, home care, and importance of outpatient follow-up. Pt verbalizes understanding of the plan and is amenable. Patient discharged to home with clear plan for outpatient follow-up. All questions were answered. Disposition decision was made weighing the risks and benefits of hospitalization versus outpatient treatment, the risk for further decompensation, and the patient's wishes. Medical Records Medical records reviewed: Yes I reviewed the patient's medical records. Imaging Data Radiologic Study: Attestation: I personally reviewed and interpreted this imaging study as follows: Radiologist's impression: EXAM:? US LOWER EXTREMITY VENOUS RT CLINICAL HISTORY: ? swelling.? TECHNIQUE: ? Lower extremity venous ultrasound performed using grayscale, color-flow, and spectral Doppler analysis. COMPARISON:? No exams were available for comparison FINDINGS: The common femoral, femoral and popliteal veins demonstrate normal compressibility, augmentation, and color Doppler. The posterior tibial veins are patent.? No saphenous vein thrombosis or other superficial venous thrombosis is seen.? There is a Ahmadi's cyst containing hemorrhage or debris measuring 5 x 1.6 x 4.2 cm.? There is also an elongated fluid collection in the calf measuring 6 x 2 x 5 cm..? This could represent a ruptured Ahmadi's cyst or could be related to the patient's prior Achilles surgery. IMPRESSION: Ahmadi's cyst and calf fluid collection.? No evidence of DVT.? Lab Data Lab results reviewed: Yes I reviewed the patient's lab results. Labs: Laboratory Tests Range/Units 02/08/22 02/08/22 02/08/22 10:35 10:35 10:35 WBC (4.4-10.8) 10^3/uL 6.20 RBC (3.93-5.22) 10^6/uL 4.15 Hgb (11.2-15.7) g/dL 13.2 Hct (36.0-46.0) % 39.5 MCV (80-95) fL 95 MCH (27.0-33.0) pg 31.8 MCHC (32.0-36.0) % 33.4 RDW (11.7-14.6) % 12.6 Plt Count (130-400) 10^3/uL 192 MPV (8.0-11.0) fL 10.4 Immature Gran % 1.1 Neutrophils % 68.6 Lymphocytes % 20.0 Monocytes % 8.9 Eosinophils % 0.8 Basophils % 0.6 Nucleated RBC % (0.0-0.3) % 0.0 Absolute Neutrophils (1.2-6.7) 10^3/uL 4.25 Absolute Lymphocytes (1.2-3.4) 10^3/uL 1.24 Absolute Monocytes (0.1-0.8) 10^3/uL 0.55 Absolute Eosinophils (0.0-0.7) 10^3/uL 0.05 Absolute Basophils (0.0-0.2) 10^3/uL 0.04 ESR (0-30) mm/hr 1 PT (9.3-11.0) sec INR (0.9-1.1) VBG Lactate (0.6-1.4) mmol/L Sodium (136-145) mmol/L 143 Potassium (3.5-5.1) mmol/L 3.9 Chloride (98-107) mmol/L 108 H Carbon Dioxide (21.0-32.0) mmol/L 24.9 Anion Gap (3-11) mmol/L 10.1 BUN (7-18) mg/dL 23 H Creatinine (0.55-1.02) mg/dL 1.3 H Est GFR (CKD-EPI 2020) (mL/min/1.73m2) 47.37 Glucose (74-106) mg/dL 135 H Calcium (8.5-10.1) mg/dL 8.6 Total Bilirubin (0.2-1.0) mg/dL 0.4 AST (15-37) U/L 70 H ALT (14-59) U/L 80 H Alkaline Phosphatase (46-116) U/L 114 C-Reactive Protein (0.0-0.3) mg/dL < 0.05 Total Protein (6.4-8.2) g/dL 7.2 Albumin (3.4-5.0) g/dL 3.7 Range/Units 02/08/22 02/08/22 10:35 11:45 WBC (4.4-10.8) 10^3/uL RBC (3.93-5.22) 10^6/uL Hgb (11.2-15.7) g/dL Hct (36.0-46.0) % MCV (80-95) fL MCH (27.0-33.0) pg MCHC (32.0-36.0) % RDW (11.7-14.6) % Plt Count (130-400) 10^3/uL MPV (8.0-11.0) fL Immature Gran % Neutrophils % Lymphocytes % Monocytes % Eosinophils % Basophils % Nucleated RBC % (0.0-0.3) % Absolute Neutrophils (1.2-6.7) 10^3/uL Absolute Lymphocytes (1.2-3.4) 10^3/uL Absolute Monocytes (0.1-0.8) 10^3/uL Absolute Eosinophils (0.0-0.7) 10^3/uL Absolute Basophils (0.0-0.2) 10^3/uL ESR (0-30) mm/hr PT (9.3-11.0) sec 10.6 INR (0.9-1.1) 1.1 VBG Lactate (0.6-1.4) mmol/L 1.8 H Sodium (136-145) mmol/L Potassium (3.5-5.1) mmol/L Chloride (98-107) mmol/L Carbon Dioxide (21.0-32.0) mmol/L Anion Gap (3-11) mmol/L BUN (7-18) mg/dL Creatinine (0.55-1.02) mg/dL Est GFR (CKD-EPI 2020) (mL/min/1.73m2) Glucose (74-106) mg/dL Calcium (8.5-10.1) mg/dL Total Bilirubin (0.2-1.0) mg/dL AST (15-37) U/L ALT (14-59) U/L Alkaline Phosphatase (46-116) U/L C-Reactive Protein (0.0-0.3) mg/dL Total Protein (6.4-8.2) g/dL Albumin (3.4-5.0) g/dL HPI General Mode of arrival: ambulatory. Date/Time Provider Initiated Documentation: 02/08/22 09:54. Limitations to Documentation: no limitations. Information obtained by: patient, RN notes reviewed and old records reviewed. HPI Narrative: Martha Gann is a 61-year-old woman with a history of insulin-dependent diabetes, GERD, gastroparesis, CKD, hyperlipidemia, rheumatoid arthritis on sarilumab presenting to the emergency department with rash. Patient reports that on December 14, 2021 she had left Achilles tendon repair. Patient reports that midway through December when cast was removed she noted small red spot medial aspect of her left calf. Patient mentioned it to the physician at the time who thought that it was irritation from cast and no further treatment was indicated. Patient reports that spot has remained and has progressed somewhat until 5 days ago when rash seemed to darken and progressed significantly into the medial aspect of the foot and the posterior aspect of her calf. Patient reports that she otherwise feels well and in her usual state of health. She denies any pain in the area of the rash or any other new pain (reports chronic unchanged arthritis pain in multiple areas), denies fever, cough, shortness of breath, vomiting, diarrhea, numbness, weakness, any other rash or intraoral lesions. Patient reports that she has been eating and drinking as usual with normal appetite. She reports that she has had swelling of the left leg that has been present and unchanged since having the surgery. Denies any other swelling. Related Data Home Medications Medication Instructions Recorded Confirmed methocarbamol 750 mg tablet 1,500 mg PO Q8H #540 tabs 06/07/19 02/08/22 prucalopride 1 mg tablet 2 mg PO DAILY #90 tabs 08/31/19 02/08/22 (Motegrity) mupirocin 2 % topical ointment 1 applic topical TID #22 grams 03/05/20 02/08/22 suvorexant 20 mg tablet (Belsomra) 20 mg PO HS #90 tabs 10/04/20 02/08/22 trimethobenzamide 300 mg capsule 300 mg PO Q8H PRN nausea and 02/25/21 02/08/22 vomiting #180 caps fluticasone furoate 100 1 inh inhalation DAILY #180 ea 04/25/21 02/08/22 mcg-vilanterol 25 mcg/dose inhalation powder (Breo Ellipta) sumatriptan succinate 100 mg tablet 100 mg PO PRN migraine headache 04/25/21 02/08/22 #18 tabs pen needle, diabetic 32 gauge x #360 ea 06/11/21 02/08/22 (BD Ultra-Fine Sobia Pen Needle) polyethylene glycol 3350 17 8.5 g PO DAILY 06/15/21 02/08/22 gram/dose oral powder (Miralax) sarilumab 150 mg/1.14 mL 150 mg subcut Q2W 08/11/21 02/08/22 subcutaneous pen injector (Kevzara) insulin aspart U-100 100 unit/mL 48 unit (0.48 mL) subcut TID #135 08/12/21 02/08/22 subcutaneous cartridge (Novolog mL PenFill U-100 Insulin aspart) insulin degludec 200 unit/mL (3 150 unit (0.75 mL) subcut DAILY 08/12/21 02/08/22 mL) subcutaneous pen (Tresiba #63 mL FlexTouch U-200 insulin) magnesium oxide 400 mg PO DAILY 08/13/21 02/08/22 clonazepam 0.5 mg tablet 0.5 mg PO QHS #84 tabs 09/08/21 02/08/22 lidocaine 4 % topical spray 2 spray topical BID #113 grams 09/14/21 02/08/22 (Aspercreme (lidocaine)) dicyclomine 20 mg tablet 20 mg PO Q6H 11/18/21 02/08/22 lubiprostone 24 mcg capsule 24 mcg PO BID 11/18/21 02/08/22 sarilumab 200 mg/1.14 mL 200 mg subcut Q2W 11/18/21 02/08/22 subcutaneous pen injector albuterol sulfate 90 mcg/actuation 1 inh inhalation PRN shortness of 12/06/21 02/08/22 aerosol inhaler (ProAir HFA) breath or wheezing #25.5 grams clindamycin phosphate 1 % topical 1 applic topical QAM AND QHS #360 12/06/21 02/08/22 gel grams ergocalciferol (vitamin D2) 1,250 50,000 unit PO DAILY #90 caps 12/06/21 02/08/22 mcg (50,000 unit) capsule furosemide 80 mg tablet 80 mg PO DAILY #90 tabs 12/06/21 02/08/22 gabapentin 600 mg tablet 600 mg PO TID #270 tabs 12/06/21 02/08/22 lidocaine 5 % topical patch 3 patch topical DAILY #15 ea 12/06/21 02/08/22 losartan 25 mg tablet 25 mg PO DAILY #90 tabs 12/06/21 02/08/22 montelukast 10 mg tablet 10 mg PO HS #90 tabs 12/06/21 02/08/22 nystatin 100,000 unit/mL oral 1 ml buccal QID #100 mL 12/06/21 02/08/22 suspension ondansetron HCl 8 mg tablet 8 mg PO Q8H PRN nausea and 12/06/21 02/08/22 vomiting #51 tabs pantoprazole 40 mg tablet,delayed 40 mg PO DAILY #90 tabs 12/06/21 02/08/22 release potassium chloride 10 mEq 20 meq PO DAILY #180 caps 12/06/21 02/08/22 capsule,extended release topiramate 50 mg tablet (Topamax) 50 mg PO BID #180 tabs 12/06/21 02/08/22 tramadol 50 mg tablet 50 mg PO BID PRN pain #180 tabs 12/06/21 02/08/22 venlafaxine 150 mg 150 mg PO DAILY #90 caps 12/06/21 02/08/22 capsule,extended release 24 hr (Effexor XR) vilazodone 20 mg tablet (Viibryd) 20 mg PO DAILY #90 tabs 12/06/21 02/08/22 sucralfate 1 gram tablet 1 g PO BID #30 tabs 12/18/21 02/08/22 fenofibrate nanocrystallized 48 mg 48 mg PO DAILY #90 tabs 02/23/22 02/23/22 tablet (Tricor) glucagon 1 mg/0.2 mL subcutaneous 1 mg (0.2 mL) subcut Q20M PRN 02/23/22 02/23/22 solution hypoglycemia #0.2 mL glucagon 3 mg/actuation nasal spray 3 mg intranasal ONCE #2 ea 02/23/22 02/23/22 ondansetron HCl 4 mg tablet 8 mg PO Q8H #90 tabs 02/23/22 02/23/22 Previous Rx's Medication Instructions Recorded methocarbamol 750 mg tablet 1,500 mg PO Q8H #540 tabs 06/07/19 prucalopride 1 mg tablet 2 mg PO DAILY #90 tabs 08/31/19 (Motegrity) mupirocin 2 % topical ointment 1 applic topical TID #22 grams 03/05/20 suvorexant 20 mg tablet (Belsomra) 20 mg PO HS #90 tabs 10/04/20 trimethobenzamide 300 mg capsule 300 mg PO Q8H PRN nausea and 02/25/21 vomiting #180 caps fluticasone furoate 100 1 inh inhalation DAILY #180 ea 04/25/21 mcg-vilanterol 25 mcg/dose inhalation powder (Breo Ellipta) sumatriptan succinate 100 mg tablet 100 mg PO PRN migraine headache 04/25/21 #18 tabs pen needle, diabetic 32 gauge x #360 ea 06/11/21 (BD Ultra-Fine Sobia Pen Needle) insulin aspart U-100 100 unit/mL 48 unit (0.48 mL) subcut TID #135 08/12/21 subcutaneous cartridge (Novolog mL PenFill U-100 Insulin aspart) insulin degludec 200 unit/mL (3 150 unit (0.75 mL) subcut DAILY 08/12/21 mL) subcutaneous pen (Tresiba #63 mL FlexTouch U-200 insulin) clonazepam 0.5 mg tablet 0.5 mg PO QHS #84 tabs 09/08/21 lidocaine 4 % topical spray 2 spray topical BID #113 grams 09/14/21 (Aspercreme (lidocaine)) albuterol sulfate 90 mcg/actuation 1 inh inhalation PRN shortness of 12/06/21 aerosol inhaler (ProAir HFA) breath or wheezing #25.5 grams clindamycin phosphate 1 % topical 1 applic topical QAM AND QHS #360 12/06/21 gel grams ergocalciferol (vitamin D2) 1,250 50,000 unit PO DAILY #90 caps 12/06/21 mcg (50,000 unit) capsule furosemide 80 mg tablet 80 mg PO DAILY #90 tabs 12/06/21 gabapentin 600 mg tablet 600 mg PO TID #270 tabs 12/06/21 lidocaine 5 % topical patch 3 patch topical DAILY #15 ea 12/06/21 losartan 25 mg tablet 25 mg PO DAILY #90 tabs 12/06/21 montelukast 10 mg tablet 10 mg PO HS #90 tabs 12/06/21 nystatin 100,000 unit/mL oral 1 ml buccal QID #100 mL 12/06/21 suspension ondansetron HCl 8 mg tablet 8 mg PO Q8H PRN nausea and 12/06/21 vomiting #51 tabs pantoprazole 40 mg tablet,delayed 40 mg PO DAILY #90 tabs 12/06/21 release potassium chloride 10 mEq 20 meq PO DAILY #180 caps 12/06/21 capsule,extended release topiramate 50 mg tablet (Topamax) 50 mg PO BID #180 tabs 12/06/21 tramadol 50 mg tablet 50 mg PO BID PRN pain #180 tabs 12/06/21 venlafaxine 150 mg 150 mg PO DAILY #90 caps 12/06/21 capsule,extended release 24 hr (Effexor XR) vilazodone 20 mg tablet (Viibryd) 20 mg PO DAILY #90 tabs 12/06/21 sucralfate 1 gram tablet 1 g PO BID #30 tabs 12/18/21 fenofibrate nanocrystallized 48 mg 48 mg PO DAILY #90 tabs 02/23/22 tablet (Tricor) glucagon 1 mg/0.2 mL subcutaneous 1 mg (0.2 mL) subcut Q20M PRN 02/23/22 solution hypoglycemia #0.2 mL glucagon 3 mg/actuation nasal spray 3 mg intranasal ONCE #2 ea 02/23/22 ondansetron HCl 4 mg tablet 8 mg PO Q8H #90 tabs 02/23/22 Allergies Allergy/AdvReac Type Severity Reaction Status Date / Time adhesive tape Allergy Skin Rash Verified 02/23/22 15:27 cefaclor [From Ceclor] Allergy Verified 02/23/22 15:27 erythromycin base Allergy breathing Verified 02/23/22 15:27 problems hydromorphone [From Dilaudid] Allergy I stop Verified 02/23/22 15:27 breathing iodine Allergy rash & Verified 02/23/22 15:27 breathing problems lamotrigine Allergy rash, Verified 02/23/22 15:27 asthma levofloxacin [From Levaquin] Allergy turns my Verified 02/23/22 15:27 legs blue and my blood from my legs pools meperidine [From Demerol] Allergy severe Verified 02/23/22 15:27 itching morphine Allergy breathing Verified 02/23/22 15:27 problems promethazine [From Phenergan] Allergy facial Verified 02/23/22 15:27 droop & tick vancomycin Allergy Verified 02/23/22 15:27 scopolamine AdvReac Significant Verified 02/23/22 15:27 N/V with patch urea Allergy skin Uncoded 02/23/22 15:27 blisters General Stated Complaint: Cellulitis PURA: 3 Review of Systems Narrative: Constitutional: denies fevers Eyes: denies eye pain ENT: denies ear pain, dental pain, sore throat Cardiovascular: denies chest pain, reports left lower leg edema since surgery 01/04 Respiratory: denies SOB, cough GI: denies abdominal pain, vomiting, diarrhea : denies flank pain MSK: denies back pain, neck pain, myalgias, reports chronic generalized arthralgias unchanged for years Skin: Reports rash Neuro: denies headaches, numbness, weakness PFSH All Active Problems (Updated 02/23/22 @ 16:31 by Lore Roman DO) Sleep apnea (Acute) Unable to tolerate CPAP; interested in dental mouthpiece. Last study @ [place]. Hypoglycemia (Acute) Urgent, with unresponsiveness, #2! .. EMT measured 46 (02/22/22), gave D10 --> BG 106 [but hen ??].. #1 was last week ARCELIA (acute kidney injury) (Acute) Creatinine rise, presumed 2' anti-biotics, infection, post-surgery .. 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 Bx [ ] Abrasion, corneal (Acute) Subconjunctival hemorrhage (Acute) Rash (Acute) Diabetic retinopathy of both eyes without macular edema associated with type 2 diabetes mellitus (Acute 12/23/21) moderate Cervical spondylosis (Acute) 08/13/21 [facility] [place] Neurology note - Lumbar spondylosis Plantar fasciitis of right foot (Acute) Insertional Achilles tendinopathy (Acute) R side, MRI shows arthritis of this joint as well. IBS (irritable bowel syndrome) (Chronic) Chronic gastroesophageal reflux disease (Acute) Gastric paresis (Acute) Disability Irritable bowel syndrome with diarrhea (Acute ~06/15/21) Abdominal lump (Acute) Central, sub-sternal .. mild tenderness .. growing larger .. lipoma vs hernia? Ulcer of nose (Acute) Right nare, acute on chronic Nonspecific reactive hepatitis (Acute) 05/26/21 [facility] [place] Rheumatology note Elevated LFTs (Acute) 05/26/21 [facility] [place] Rheumatology note Muscle stiffness (Acute) 05/26/21 [facility] [place] Rheumatology note Fasciculations (Acute) 05/26/21 [facility] [place] Rheumatology note High risk medication use (Acute) 05/26/21 [facility] [place] Rheumatology note Osteoarthritis of multiple joints (Acute) 05/26/21 [facility] [place] Rheumatology note Muscle cramps (Acute) 05/26/21 [facility] [place] Rheumatology note 08/13/21 [facility] [place] Neurology - muscle spasm Post-traumatic osteoarthritis, right ankle and foot (Acute) Diabetes (Chronic) A1C 6.7 01/26/19 DM > 30 years, with nausea 2' gastroparesis Intertrigo (Chronic) Possible Erythrasmus, acute on chronic .. CLindamycin seems to be working, 04/2021. Hypothyroid (Chronic) ID per elevated TSH, 07/2020 ..Tolerating levothyr. Review w/ Endocrine? BMI greater than 40 (Acute) Chronic kidney disease, stage 2 (mild) (Chronic) Hx Nephro Eval ([place]), stable. GFR 46, 02/2021 (@ baseline per July 2020, but higher than 2020). Fibromyalgia (Acute) Chronic pain (Chronic) Elevated CPK (Acute) 05/11/2019 [facility] [place] Rheum Rheumatoid arthritis (Chronic) [facility] [place] Rheum .. Xeljanz, Methotrexate, Prednisone PRN Primary generalized (osteo)arthritis (Acute) 05/11/2019 [facility] [place] Rheum. Neurodermatitis (Acute) Unspecified corneal ulcer, left eye (Acute) Dr. 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 History of fracture of right ankle Laceration left index finger Nasal vestibulitis 08/19/21 Dr Grant R nasal biopsy done Surgical History (Updated 01/14/22 @ 17:09 by Chinyere Gomez RN) H/O Achilles tendon repair (~2016) H/O Achilles tendon repair (12/2021) Right repair of insertional achilles tendon rupture and resection of Rubin deformity, excision of os trigonum, FHL transfer, and gastroc slide H/O hernia repair (~2014) History of carpal tunnel surgery (~2005) bilateral History of cholecystectomy History of gastric bypass (~2003) History of thumb surgery (~2014) bilateral S/P colonoscopy 08/03/19 [facility] [place] - repeat in 2-3 years S/P endoscopy 08/03/19 [facility] [place] Family History Mother Diabetes Hypertension Brother Substance abuse Asthma Sister Substance abuse Asthma Anxiety Other S/P endoscopy Social History Smoking/Tobacco Use Status: Never Smoking risk assessment performed?: Yes Alcohol Intake: current Alcohol Intake frequency: holidays/special occasions only Drug use: Never Substance use type: does not use Adopted: Yes Caregiver/Support person: Yes Foster care: No Household members: friend(s) Housing: house Number of Children: 0 Do you need help understanding health information?: Never current occupation: Disabled Do you think of yourself as: lesbian/diana/homosexual Current gender identity: female What is your relationship status?: living with partner Panel score (0-1 are the most socially isolated patients): 1 What type of physical activity do you participate in: none Duration: < 15 minutes/day Seatbelt use: always Do you feel safe at home: Yes Do you feel safe in your relationship?: Yes Exam Narrative Exam Narrative: Constitutional: well and [id number], pleasant, conversing normally HENT: head atraumatic/normocephalic/normal inspection, mucous membranes moist Eyes: conjunctiva normal, sclera normal, pupils 3mm b/l Neck: no stridor, normal ROM, trachea midline Chest: normal inspection Resp: normal work of breathing, LCTAB Cardio: normal rate, normal rhythm, no murmur appreciated GI: abdomen soft, non-tender, non-distended Back: normal inspection Skin: warm, dry, normal color, flat irregular erythema of the anteromedial right lower leg, nonblanching, nontender to palpation, no crepitus, does not extend to the ankle or knee Neuro: alert, not altered, grossly non-focal, normal tone Ext: 1+ edema of the right lower leg, no edema in the left lower leg, no posterior calf tenderness to palpation bilaterally Psych: normal mood, normal affect, normal behavior Course Vital Signs Vital signs: Vital Signs Temperature 36.5 C 02/08/22 09:33 Pulse 98 H 02/08/22 09:33 Respiratory Rate 16 02/08/22 09:33 Blood Pressure 152/70 H 02/08/22 09:33 Pulse Oximetry 98 02/08/22 09:33 Temperature 36.5 C 02/08/22 09:33 Temperature Source Temporal Artery Scan 02/08/22 09:33 Pulse 98 H 02/08/22 09:33 Respiratory Rate 16 02/08/22 09:33 Respiratory Effort Non-Labored 02/08/22 09:50 Blood Pressure 152/70 H 02/08/22 09:33 Blood Pressure Position Sitting 02/08/22 09:33 Pulse Oximetry 98 02/08/22 09:33 Oxygen Delivery Method Room Air 02/08/22 09:33 Oxygen Flow Rate 0 02/08/22 09:33
[2022-02-08 10:44] LABS: Lactate 1.8 mmol/L (0.6-1.4)
[2022-02-08 10:45] LABS: Abs Immature Grans 0.07 10^3/uL (0.0-0.06); Absolute Basophil Count 0.04 10^3/uL (0.0-0.2); Absolute Eosinophil Count 0.05 10^3/uL (0.0-0.7); Absolute Lymphocyte Count 1.24 10^3/uL (1.2-3.4); Absolute Monocyte Count 0.55 10^3/uL (0.1-0.8); Absolute Neutrophil Count 4.25 10^3/uL (1.2-6.7); Basophils % 0.6; Eosinophils % 0.8; HCT 39.5 % (36.0-46.0); HGB 13.2 g/dL (11.2-15.7); Immature Grans % 1.1; MCH 31.8 pg (27.0-33.0); MCHC 33.4 % (32.0-36.0); MCV 95 fL (80-95); MPV 10.4 fL (8.0-11.0); Monocytes % 8.9; Neutrophils % 68.6; Platelet Count 192 10^3/uL (130-400); RBC 4.15 10^6/uL (3.93-5.22); RDW 12.6 % (11.7-14.6); RDW-SD 43.9 fL
[2022-02-08 10:48] LABS: ESR 1 mm/hr (0-30)
[2022-02-08 11:01] LABS: ALT 80 U/L (14-59); AST 70 U/L (15-37); Albumin 3.7 g/dL (3.4-5.0); Alkaline Phosphatase 114 U/L (46-116); Anion Gap 10.1 mmol/L (3-11); BUN 23 mg/dL (7-18); Bilirubin, Total 0.4 mg/dL (0.2-1.0); C-Reactive Protein < 0.05 mg/dL (0.0-0.3); CO2 24.9 mmol/L (21.0-32.0); CREATININE 1.3 mg/dL (0.55-1.02); Calcium 8.6 mg/dL (8.5-10.1); Chloride 108 mmol/L (98-107); Estimated GFR 47.37 (mL/min/1.73m2); Glucose 135 mg/dL (74-106); Potassium 3.9 mmol/L (3.5-5.1); Sodium 143 mmol/L (136-145); Total Protein 7.2 g/dL (6.4-8.2)
[2022-02-08 12:12] LABS: INR 1.1 (0.9-1.1); Prothrombin Time 10.6 sec (9.3-11.0)
[2022-02-08] MEDS: Lidocaine 1% Pres-Free 5 ML VIAL (12:55)
--- NOTE | 2022-02-08 13:10 | SKI_PTH ---
PATIENT: Martha Gann V LOC: [facility] U#:[id number] AGE/SX: 61/F ROOM: RE02/08/[address]: Lillian Blanco : 1960 BED: DIS: 02/08/2022 SPEC #: [id number] RECD: 02/08/22 13:33 STATUS: MERLY REQ #: [id number] LUCINDA: 02/08/22 13:[address]: Irene Garcia DEPT: Surgical Specimen RECD BY: Sharon Sagastume ENTERED: 02/08/22 13:35 SP TYPE: BRYANT DUONG DR: Lore Roman DO Tissues: 1 - SKIN BIOPSY(SHAVE/PUNCH) Procedures: SKIN LEVEL 4 SPECIAL STAIN 1 Comments: [id number]
[2022-02-08 13:35] VITALS: BP 132/67; PULSE 82; O2SAT 97
[2022-02-08 14:52] VITALS: BP 132/67; PULSE 82; O2SAT 97
--- NOTE | 2022-02-10 21:46 | SCONE_ITS ---
Date of service: 02/09/22 Time of Service: 12:30 Assessment and Plan Assessment and plan (1) Ahmadi's cyst, ruptured: Status: Suspected (2) Skin lesion of right leg: Status: Acute Assessment and plan: Because of the unknown etiology of the rash I do feel that she should get a skin biopsy. Did communicate with the this with the patient and she is in agreement. Risks include bleeding infection and scarring. She will get a dose of antibiotics IV because of her diabetes. Just because the unknown nature of the rash we will probably send her home on antibiotics as well. The area of the right posterior calf is prepped and draped in usual sterile fashion using a alcohol-based scrub solution as she is allergic to iodine. Infiltrated with 5 cc of 1% lidocaine plain. A 4 mm area of tissue is excised and closed with a 3-0 Prolene and sterile dressing applied. Patient tolerated the procedure well. She is given instructions in wound care, activity, and warning signs. I will have her follow-up with myself in a week in the office. Activity as what she is allowed by her orthopedic surgeon. Again she is on immunosuppressive medication already which she took all this week. I do not feel additional steroids are indicated at this time. (3) Diabetic retinopathy of both eyes without macular edema associated with type 2 diabetes mellitus: Status: Acute (4) Insertional Achilles tendinopathy: Status: Acute (5) H/O Achilles tendon repair: History of Present Illness Narrative: The patient presents to the ER today regarding rash on her leg. She had Achilles tendon surgery on this leg approximately 4 weeks ago. She was in a cast for 2 weeks following the surgery. When they took the cast off her leg she noticed small area of the rash. It continues to grow. It is flat erythematous continuous red rash. It does not aron. There is no weeping or vesicles. It is not itchy or painful. She denies any trauma. She has not traveled out of the state. She is not been using any new supplements. It does not look allergic/like a contact dermatitis. It almost looks like a vasculitic type reaction. She has RA and is on sarilumab injection every 2 weeks. She is not having problems with rashes from this medication. I did review the pharmacology of the medication, and it can be associated with rash. Although she has been on this medication longstanding and has not had any problems previously. The rash does not look like it is a bacterial infection or a contact dermatitis. It does not look like pressure trauma from the cast. The ER did do a ultrasound of the leg and there is a irregular fluid collection under the mid posterior calf. She also has incision in this area because the surgeon did a tendon lengthening procedure. So I think the fluid collection is a normal postop surgical change and do not feel this represents an infective process. She is also a type I diabetic. And recently had surgery. Her incisions from the previous surgery are well-healed. Review of Systems All systems reviewed & are unremarkable except as noted in HPI and below PFSH All Active Problems (Updated 02/10/22 @ 21:35 by Lore Roman DO) Skin lesion of right leg (Acute) rt calf, with Hx preogressing rash like lesion, with edema. Bx [ ] Abrasion, corneal (Acute) Subconjunctival hemorrhage (Acute) Rash (Acute) Diabetic retinopathy of both eyes without macular edema associated with type 2 diabetes mellitus (Acute 12/23/21) moderate Cervical spondylosis (Acute) 08/13/21 [facility] [place] note - Lumbar spondylosis Plantar fasciitis of right foot (Acute) Insertional Achilles tendinopathy (Acute) R side, MRI shows arthritis of this joint as well. IBS (irritable bowel syndrome) (Chronic) Chronic gastroesophageal reflux disease (Acute) Gastric paresis (Acute) Disability Irritable bowel syndrome with diarrhea (Acute ~06/15/21) Abdominal lump (Acute) Central, sub-sternal .. mild tenderness .. growing larger .. lipoma vs hernia? Ulcer of nose (Acute) Right nare, acute on chronic Nonspecific reactive hepatitis (Acute) 05/26/21 [facility] [place]ology note Elevated LFTs (Acute) 05/26/21 [facility] [place] [facility]umatology note Muscle stiffness (Acute) 05/26/21 [facility] [place] Rheumatology note Fasciculations (Acute) 05/26/21 [facility] [place] Rheumatology note High risk medication use (Acute) 05/26/21 [facility] [place] Rheumatology note Osteoarthritis of multiple joints (Acute) 05/26/21 [facility] [place] Rheumatology note Muscle cramps (Acute) 05/26/21 [facility] [place] Rheumatology note 08/13/21 [facility] [place] Neurology - muscle spasm Post-traumatic osteoarthritis, right ankle and foot (Acute) Diabetes (Chronic) A1C 6.7 01/26/19 DM > 30 years, with nausea 2' gastroparesis Intertrigo (Chronic) Possible Erythrasmus, acute on chronic .. CLindamycin seems to be working, 04/2021. Hypothyroid (Chronic) ID per elevated TSH, 07/2020 ..Tolerating levothyr. Review w/ Endocrine? BMI greater than 40 (Acute) Chronic kidney disease, stage 2 (mild) (Chronic) Hx Nephro Eval ([place]), stable. GFR 46, 02/2021 (@ baseline per July 2020, but higher than 2019). Fibromyalgia (Acute) Chronic pain (Chronic) Elevated CPK (Acute) 05/11/2019 [facility] [place] Rheumatoid arthritis (Chronic) [facility] [place] Rhe[facility] .. Xeljanz, Methotrexate, Prednisone PRN Primary generalized (osteo)arthritis (Acute) 05/11/2019 [facility] [place] Rhe[facility]. Neurodermatitis (Acute) Unspecified corneal ulcer, left eye (Acute) Dr. Saavedra 11/23/2019 [facility] Allergic rhinitis (Acute) Asthma (Chronic) Bilateral cataracts (Acute) Neuropathy (Acute) Migraine (Chronic) Insomnia (Acute) Mixed anxiety and depressive disorder (Acute) Abnormal bruising (Acute) Anemia (Chronic) Mixed hyperlipidemia (Acute) Vitamin D deficiency (Acute) Hammertoe of left foot (Acute) Medical History (Updated 02/10/22 @ 21:35 by Lore Roman DO) Achilles tendinitis left 09/19/18 right 10/13/21 (Gerry) with Rubin's deformity Arthritis Colon polyps (08/04/15) 2015 5 mm cessile, 2020 colo repeat 2-3 yrs. History of fracture of right ankle Laceration left index finger Nasal vestibulitis 08/19/21 Nico Garcia nasal biopsy done Surgical History (Updated 01/14/22 @ 17:09 by Chinyere Gomez RN) H/O Achilles tendon repair (~2016) H/O Achilles tendon repair (12/2021) Right repair of insertional achilles tendon rupture and resection of Rubin deformity, excision of os trigonum, FHL transfer, and gastroc slide H/O hernia repair (~2014) History of carpal tunnel surgery (~2005) bilateral History of cholecystectomy History of gastric bypass (~2003) History of thumb surgery (~2014) bilateral S/P colonoscopy 08/03/19 [facility] [place] - repeat in 2-3 years S/P endoscopy 08/03/19 [facility] [place] Family History Mother Diabetes Hypertension Brother Substance abuse Asthma Sister Substance abuse Asthma Anxiety Other S/P endoscopy Social History Smoking/Tobacco Use Status: Never Smoking risk assessment performed?: Yes Alcohol Intake: current Alcohol Intake frequency: holidays/special occasions only Drug use: Never Substance use type: does not use Adopted: Yes Caregiver/Support person: Yes Foster care: No Household members: friend(s) Housing: house Number of Children: 0 Do you need help understanding health information?: Never current occupation: Disabled Do you think of yourself as: lesbian/diana/homosexual Current gender identity: female What is your relationship status?: living with partner Panel score (0-1 are the most socially isolated patients): 1 What type of physical activity do you participate in: none Duration: < 15 minutes/day Seatbelt use: always Do you feel safe at home: Yes Do you feel safe in your relationship?: Yes Exam Skin Other: Nonblanching flat erythematous rash of the right lower extremity. It does not follow a dermatomal pattern. There are no pustules or vesicles. Is not painful. It is not itchy. It looks almost vasculitic in nature. She is already on immunosuppressive medication. She has not had issues with this in the past. Results Last Vital Signs Temp 36.5 C 02/08/22 09:33 Pulse 82 02/08/22 14:52 Resp 16 02/08/22 09:33 BP 132/67 02/08/22 14:52 Pulse Ox 97 02/08/22 14:52 Labs Result diagrams: 02/08/22 10:35 02/08/22 10:35 CBC White Blood Count 6.20 10^3/uL (4.4-10.8) 02/08/22 Red Blood Count 4.15 10^6/uL (3.93-5.22) 02/08/22 Hemoglobin 13.2 g/dL (11.2-15.7) 02/08/22 Hematocrit 39.5 % (36.0-46.0) 02/08/22 Mean Corpuscular Volume 95 fL (80-95) 02/08/22 Mean Corpuscular Hemoglobin 31.8 pg (27.0-33.0) 02/08/22 Mean Corpuscular Hemoglobin Concent 33.4 % (32.0-36.0) 01/15 11/04 Red Cell Distribution Width 12.6 % (11.7-14.6) 02/08/22 Platelet Count 192 10^3/uL (130-400) 02/08/22 Mean Platelet Volume 10.4 fL (8.0-11.0) 02/08/22 Neutrophils % 68.6 02/08/22 Lymphocytes % 20.0 02/08/22 Monocytes % 8.9 02/08/22 Eosinophils % 0.8 02/08/22 Basophils % 0.6 02/08/22 Immature Granulocytes % 1.1 02/08/22 Comprehensive Metabolic Panel Sodium 143 mmol/L (136-145) 02/08/22 10:35 Potassium 3.9 mmol/L (3.5-5.1) 02/08/22 10:35 Chloride 108 mmol/L (98-107) H 02/08/22 10:35 Carbon Dioxide 24.9 mmol/L (21.0-32.0) 02/08/22 10:35 BUN 23 mg/dL (7-18) H 02/08/22 10:35 Creatinine 1.3 mg/dL (0.55-1.02) H 02/08/22 10:35 Estimated GFR/1.73 m2 38.49 (mL/min/1.73m2) 11/04/21 09:55 Glucose 135 mg/dL (74-106) H 02/08/22 10:35 Calcium 8.6 mg/dL (8.5-10.1) 02/08/22 10:35 Conjugated Bilirubin 0.13 mg/dL (0.00-0.20) 07/26/19 08:30 Total Bilirubin 0.4 mg/dL (0.2-1.0) 02/08/22 10:35 ALT 80 U/L (14-59) H 02/08/22 10:35 AST 70 U/L (15-37) H 02/08/22 10:35 Alkaline Phosphatase 114 U/L (46-116) 02/08/22 10:35 Total Protein 7.2 g/dL (6.4-8.2) 02/08/22 10:35 Albumin 3.7 g/dL (3.4-5.0) 02/08/22 10:35
== END 2022-02-08 14:57 | disposition home or self-care (01) ==
PROVIDERS: Emergency Provider Student in an Organized Health Care Education/Training Program; PCP Student in an Organized Health Care Education/Training Program
DX: R21 Rash and other nonspecific skin eruption (principal); E11.43 Type 2 diabetes mellitus with diabetic autonomic (poly)neuropathy; K31.84 Gastroparesis; E11.22 Type 2 diabetes mellitus with diabetic chronic kidney disease; N18.4 Chronic kidney disease, stage 4 (severe); M06.9 Rheumatoid arthritis, unspecified; Z79.4 Long term (current) use of insulin
CPT/HCPCS: 11400; 36415; 80053; 85652; 96365; 99284; 83605; 85025; 85610; 86140; 88305; 88312; 93971

== ENCOUNTER 2022-02-23 17:03 | Outpatient (CLI) | payer MEDICARE, OTHER, SELFPAY ==
[2022-02-23 17:40] LABS: Abs Immature Grans 0.03 10^3/uL (0.0-0.06); Absolute Basophil Count 0.04 10^3/uL (0.0-0.2); Absolute Eosinophil Count 0.18 10^3/uL (0.0-0.7); Absolute Lymphocyte Count 1.75 10^3/uL (1.2-3.4); Absolute Monocyte Count 0.54 10^3/uL (0.1-0.8); Absolute Neutrophil Count 1.13 10^3/uL (1.2-6.7); Basophils % 1.1; Eosinophils % 4.9; HCT 36.7 % (36.0-46.0); HGB 12.2 g/dL (11.2-15.7); Immature Grans % 0.8; Lymphocytes % 47.7; MCH 32.1 pg (27.0-33.0); MCHC 33.2 % (32.0-36.0); MCV 97 fL (80-95); MPV 10.4 fL (8.0-11.0); Monocytes % 14.7; Neutrophils % 30.8; Platelet Count 222 10^3/uL (130-400); RDW 13.2 % (11.7-14.6); RDW-SD 46.3 fL; WBC 3.67 10^3/uL (4.4-10.8)
[2022-02-23 17:52] LABS: ALT 86 U/L (14-59); AST 60 U/L (15-37); Alkaline Phosphatase 99 U/L (46-116); Anion Gap 8.6 mmol/L (3-11); BUN 23 mg/dL (7-18); Bilirubin, Total 0.6 mg/dL (0.2-1.0); CO2 27.4 mmol/L (21.0-32.0); CREATININE 1.5 mg/dL (0.55-1.02); Calcium 9.1 mg/dL (8.5-10.1); Chloride 110 mmol/L (98-107); Estimated GFR 39.89 (mL/min/1.73m2); Glucose 104 mg/dL (74-106); Potassium 4.1 mmol/L (3.5-5.1); Sodium 146 mmol/L (136-145); TSH (W/Ref FT4) 2.22 uIU/mL (0.36-3.74); Total Protein 7.2 g/dL (6.4-8.2)
[2022-02-24 17:19] LABS: Beta-Hydroxybutyrate 0.2 mmol/L (<0.4)
[2022-02-25 11:04] LABS: Thyrotropin Receptor Ab <1.10 IU/L
[2022-02-26 16:11] LABS: Proinsulin, P 1.4 pmol/L (3.6-22)
[2022-02-26 19:35] LABS: Thyroid Stimulating Immunoglob <1.0 TSI index (<=1.3)
[2022-07-02 15:31] LABS: Lab Add On Test DONE
== END 2022-02-23 17:04 | disposition home or self-care (01) ==
LOC: LBO 17:05
PROVIDERS: PCP Student in an Organized Health Care Education/Training Program; Visit Provider Student in an Organized Health Care Education/Training Program
DX: N17.9 Acute kidney failure, unspecified (principal); Z91.89 Other specified personal risk factors, not elsewhere classified; E16.2 Hypoglycemia, unspecified; B99.9 Unspecified infectious disease; M77.9 Enthesopathy, unspecified; H05.20 Unspecified exophthalmos
CPT/HCPCS: 36415; 80053; 82010; 84206; 84235; 84443; 84445; 85025

== ENCOUNTER 2022-06-04 15:45 | Outpatient (CLI) | payer MEDICARE, OTHER, SELFPAY ==
--- NOTE | 2022-06-04 15:30 | DI.RAD_ITS ---
Exam(s) XR CHEST 2V PA LATERAL EXAM: XR CHEST 2V PA LATERAL CLINICAL HISTORY: eval for PNA R05.9 COUGH R09.1 PLEURISY R06.89 ABNL BREATHING TECHNIQUE: 2D digital imaging was performed of the chest. Two images were obtained. PA and lateral views were obtained. COMPARISON: CR XR CHEST 2V PA LATERAL from 04/20/2019 FINDINGS: MEDIASTINUM: Normal. HEART: Normal. PULMONARY VASCULATURE: Normal. LUNGS: Clear. PLEURAL SPACE: No pleural effusion or pneumothorax. BONE:Within normal limits for the patient's age. OTHER FINDINGS:Normal. IMPRESSION: No acute pulmonary findings. DATA REPOSITORY: RADIATION DOSE DELIVERED:
== END 2022-06-04 16:05 ==
PROVIDERS: PCP Student in an Organized Health Care Education/Training Program; Visit Provider Student in an Organized Health Care Education/Training Program
DX: R05.9 Cough, unspecified (principal); R06.89 Other abnormalities of breathing; R09.1 Pleurisy
CPT/HCPCS: 71046

== ENCOUNTER 2022-06-07 02:48 | Outpatient (CLI) | payer MEDICARE, OTHER, SELFPAY ==
[2022-06-07 08:11] LABS: Abs Immature Grans 0.03 10^3/uL (0.0-0.06); Absolute Basophil Count 0.03 10^3/uL (0.0-0.2); Absolute Lymphocyte Count 1.69 10^3/uL (1.2-3.4); Absolute Monocyte Count 0.63 10^3/uL (0.1-0.8); Basophils % 0.4; Eosinophils % 2.8; HCT 31.2 % (36.0-46.0); HGB 10.2 g/dL (11.2-15.7); Immature Grans % 0.4; Lymphocytes % 23.5; MCHC 32.7 % (32.0-36.0); MCV 98 fL (80-95); MPV 9.7 fL (8.0-11.0); Monocytes % 8.8; Neutrophils % 64.1; Platelet Count 341 10^3/uL (130-400); RBC 3.19 10^6/uL (3.93-5.22); RDW 12.2 % (11.7-14.6); WBC 7.18 10^3/uL (4.4-10.8)
[2022-06-07 10:22] LABS: ALT 91 U/L (14-59); AST 56 U/L (15-37); Albumin 3.4 g/dL (3.4-5.0); Alkaline Phosphatase 113 U/L (46-116); Anion Gap 9.5 mmol/L (3-11); BUN 44 mg/dL (7-18); Bilirubin, Direct 0.2 mg/dL (0.0-0.2); Bilirubin, Total 0.4 mg/dL (0.2-1.0); CO2 25.5 mmol/L (21.0-32.0); CREATININE 3.2 mg/dL (0.55-1.02); Calcium 9.1 mg/dL (8.5-10.1); Chloride 111 mmol/L (98-107); Creatine Kinase 372 U/L (26-192); Estimated GFR 15.97 (mL/min/1.73m2); Magnesium 2.5 mg/dL (1.8-2.4); Potassium 4.5 mmol/L (3.5-5.1); Sodium 146 mmol/L (136-145); Total Protein 7.5 g/dL (6.4-8.2)
[2022-06-07 10:26] LABS: Glucose 48 mg/dL (74-106)
[2022-06-07 10:42] LABS: Calculated LDL 40 mg/dL (<100); Cholesterol 101 mg/dL (<200); HDL Cholesterol 33 mg/dL (40-60); Triglyceride 143 mg/dL (<150)
== END 2022-06-07 02:49 | disposition home or self-care (01) ==
LOC: LBO 02:48
PROVIDERS: PCP Student in an Organized Health Care Education/Training Program; Visit Provider Student in an Organized Health Care Education/Training Program
DX: E11.22 Type 2 diabetes mellitus with diabetic chronic kidney disease (principal); Z79.4 Long term (current) use of insulin; R79.89 Other specified abnormal findings of blood chemistry; N17.9 Acute kidney failure, unspecified; K75.9 Inflammatory liver disease, unspecified; K58.0 Irritable bowel syndrome with diarrhea; K31.84 Gastroparesis; E83.59 Other disorders of calcium metabolism; E03.9 Hypothyroidism, unspecified
CPT/HCPCS: 36415; 80048; 80061; 80076; 82550; 83735; 85025

== ENCOUNTER 2022-06-28 01:57 | Outpatient (CLI) | payer MEDICARE, OTHER, SELFPAY ==
[2022-06-28 15:43] LABS: Abs Immature Grans 0.02 10^3/uL (0.0-0.06); Absolute Basophil Count 0.05 10^3/uL (0.0-0.2); Absolute Eosinophil Count 0.15 10^3/uL (0.0-0.7); Absolute Lymphocyte Count 2.04 10^3/uL (1.2-3.4); Absolute Neutrophil Count 5.66 10^3/uL (1.2-6.7); Basophils % 0.6; Eosinophils % 1.7; HCT 34.9 % (36.0-46.0); HGB 11.1 g/dL (11.2-15.7); Immature Grans % 0.2; Lymphocytes % 23.7; MCH 31.1 pg (27.0-33.0); MCHC 31.8 % (32.0-36.0); MCV 98 fL (80-95); MPV 9.8 fL (8.0-11.0); Monocytes % 8.1; Neutrophils % 65.7; Platelet Count 325 10^3/uL (130-400); RBC 3.57 10^6/uL (3.93-5.22); RDW 12.2 % (11.7-14.6); RDW-SD 44.1 fL; WBC 8.62 10^3/uL (4.4-10.8)
[2022-06-28 15:46] LABS: ESR 20 mm/hr (0-30)
[2022-06-28 16:10] LABS: Bilirubin Negative (Negative); Blood Negative (Negative); Clarity Clear (Clear); Glucose Negative (Negative); Ketones Negative (Negative); Leukocyte Esterase Trace (Negative); Nitrite Negative (Negative); Urobilinogen 0.2 EU/dL (Up TO 0.2); pH 5.5 (5-8)
[2022-06-28 16:11] LABS: ALT 35 U/L (14-59); AST 36 U/L (15-37); Albumin 3.6 g/dL (3.4-5.0); Alkaline Phosphatase 114 U/L (46-116); Anion Gap 9.1 mmol/L (3-11); BUN 48 mg/dL (7-18); Bilirubin, Total 0.3 mg/dL (0.2-1.0); C-Reactive Protein 1.68 mg/dL (0.0-0.3); CO2 25.9 mmol/L (21.0-32.0); CREATININE 2.7 mg/dL (0.55-1.02); Calcium 8.9 mg/dL (8.5-10.1); Chloride 105 mmol/L (98-107); Creatine Kinase 132 U/L (26-192); Estimated GFR 19.58 (mL/min/1.73m2); GGT 40 U/L (5-55); Glucose 70 mg/dL (74-106); Potassium 4.7 mmol/L (3.5-5.1); Sodium 140 mmol/L (136-145); TSH 4.04 uIU/mL (0.36-3.74); Total Protein 7.8 g/dL (6.4-8.2)
[2022-06-28 16:16] LABS: Bacteria Many HPF (Negative); Epithelial Cells Few HPF (Negative); RBC 0-2 HPF (0-2)
[2022-06-28 16:17] LABS: C & S Indicated? Yes; Casts Negative LPF (Negative); Mucus Negative (Negative)
[2022-06-28 16:28] LABS: Crystals Negative HPF (Negative); WBC 20-50 HPF (0-5)
[2022-06-28 16:34] LABS: COMMENT (LAB VIEW ONLY) 44.01 mg/dL; PROTEIN < 6.0 mg/dL
[2022-07-07 15:05] LABS: Eosinophils, U See Comments % (0%)
== END 2022-06-28 01:58 | disposition home or self-care (01) ==
LOC: LBO 01:57
PROVIDERS: PCP Student in an Organized Health Care Education/Training Program; Visit Provider Internal Medicine Rheumatology
DX: E11.69 Type 2 diabetes mellitus with other specified complication (principal); E03.9 Hypothyroidism, unspecified; R74.8 Abnormal levels of other serum enzymes; M06.09 Rheumatoid arthritis without rheumatoid factor, multiple sites; N18.2 Chronic kidney disease, stage 2 (mild); R82.998 Other abnormal findings in urine
CPT/HCPCS: 36415; 80053; 82550; 85652; 89051; 81003; 81015; 82565; 82977; 84156; 84443; 85025; 86140; 87086

== ENCOUNTER 2022-08-25 03:04 | Outpatient (CLI) | payer MEDICARE, OTHER, SELFPAY ==
[2022-08-25 14:40] LABS: Abs Immature Grans 0.03 10^3/uL (0.0-0.06); Absolute Basophil Count 0.05 10^3/uL (0.0-0.2); Absolute Eosinophil Count 0.17 10^3/uL (0.0-0.7); Absolute Lymphocyte Count 1.99 10^3/uL (1.2-3.4); Absolute Monocyte Count 0.65 10^3/uL (0.1-0.8); Absolute Neutrophil Count 5.93 10^3/uL (1.2-6.7); Basophils % 0.6; Eosinophils % 1.9; HCT 37.4 % (36.0-46.0); HGB 12.5 g/dL (11.2-15.7); Immature Grans % 0.3; Lymphocytes % 22.6; MCH 31.1 pg (27.0-33.0); MCHC 33.4 % (32.0-36.0); MCV 93 fL (80-95); MPV 9.9 fL (8.0-11.0); Monocytes % 7.4; Neutrophils % 67.2; Platelet Count 322 10^3/uL (130-400); RBC 4.02 10^6/uL (3.93-5.22); WBC 8.82 10^3/uL (4.4-10.8)
[2022-08-25 14:42] LABS: Bilirubin Negative (Negative); Blood Negative (Negative); Clarity Clear (Clear); Glucose Negative (Negative); Ketones Negative (Negative); Leukocyte Esterase Trace (Negative); Nitrite Negative (Negative); Urobilinogen 0.2 mg/dL (Up to 0.2)
[2022-08-25 14:52] LABS: Bacteria Negative HPF (Negative); C & S Indicated? Yes; Casts Negative LPF (Negative); Crystals Negative HPF (Negative); Epithelial Cells Few HPF (Negative); Mucus Negative (Negative); RBC Negative HPF (0-2); WBC 0-2 HPF (0-5)
[2022-08-25 15:10] LABS: COMMENT (LAB VIEW ONLY) 107.59 mg/dL; PROTEIN 12.8 mg/dL; Prot/Crea Ur Ratio 0.11
[2022-08-25 15:21] LABS: Albumin 3.6 g/dL (3.4-5.0)
[2022-08-25 15:22] LABS: Anion Gap 10.4 mmol/L (3-11); BUN 36 mg/dL (7-18); CO2 26.6 mmol/L (21.0-32.0); CREATININE 2.4 mg/dL (0.55-1.02); Calcium 8.8 mg/dL (8.5-10.1); Chloride 106 mmol/L (98-107); Estimated GFR 22.56 (mL/min/1.73m2); Glucose 165 mg/dL (74-106); Magnesium 2.1 mg/dL (1.8-2.4); PHOSPHORUS 3.5 mg/dL (2.6-4.7); Potassium 3.6 mmol/L (3.5-5.1); Sodium 143 mmol/L (136-145)
[2022-08-26 20:10] LABS: Parathyroid Hormone,Intact 215 pg/mL (19-88)
[2022-08-27 09:45] LABS: Kappa Free Light Chain 7.58 mg/dL (0.33-1.94); Lambda Free Light Chain 4.88 mg/dL (0.57-2.63)
== END 2022-08-25 03:05 | disposition home or self-care (01) ==
PROVIDERS: PCP Student in an Organized Health Care Education/Training Program; Referring Provider Internal Medicine Nephrology; Visit Provider Internal Medicine Nephrology
DX: N28.9 Disorder of kidney and ureter, unspecified (principal); E16.2 Hypoglycemia, unspecified; N17.9 Acute kidney failure, unspecified
CPT/HCPCS: 36415; 80048; 81003; 81015; 82040; 82565; 83735; 83883; 83970; 84100; 84156; 85025; 86140; 87086

== ENCOUNTER 2022-09-10 16:58 | Outpatient (CLI) | payer MEDICARE, OTHER, SELFPAY ==
[2022-09-10 16:58] LABS: Abs Immature Grans 0.04 10^3/uL (0.0-0.06); Absolute Basophil Count 0.07 10^3/uL (0.0-0.2); Absolute Lymphocyte Count 2.72 10^3/uL (1.2-3.4); Absolute Monocyte Count 0.75 10^3/uL (0.1-0.8); Absolute Neutrophil Count 7.61 10^3/uL (1.2-6.7); Basophils % 0.6; Eosinophils % 0.9; HCT 39.5 % (36.0-46.0); HGB 13.3 g/dL (11.2-15.7); Immature Grans % 0.4; Lymphocytes % 24.1; MCH 30.9 pg (27.0-33.0); MCHC 33.7 % (32.0-36.0); MCV 92 fL (80-95); MPV 9.8 fL (8.0-11.0); Monocytes % 6.6; Neutrophils % 67.4; Platelet Count 335 10^3/uL (130-400); RDW 12.2 % (11.7-14.6); RDW-SD 41.1 fL; WBC 11.29 10^3/uL (4.4-10.8)
[2022-09-10 17:25] LABS: ALT 39 U/L (14-59); AST 26 U/L (15-37); Alkaline Phosphatase 132 U/L (46-116); Anion Gap 8.5 mmol/L (3-11); BUN 36 mg/dL (7-18); Bilirubin, Total 0.3 mg/dL (0.2-1.0); C-Reactive Protein 1.05 mg/dL (0.0-0.3); CO2 26.5 mmol/L (21.0-32.0); CREATININE 2.6 mg/dL (0.55-1.02); Calcium 9.6 mg/dL (8.5-10.1); Chloride 109 mmol/L (98-107); Estimated GFR 20.49 (mL/min/1.73m2); Glucose 106 mg/dL (74-106); Potassium 3.5 mmol/L (3.5-5.1); Sodium 144 mmol/L (136-145); TSH (W/Ref FT4) 3.11 uIU/mL (0.36-3.74); Total Protein 8.5 g/dL (6.4-8.2)
[2022-09-10 18:52] LABS: Lab Add On Test DONE
[2022-09-10 19:16] LABS: FREE T4 0.92 ng/dL (0.76-1.46)
[2022-09-10 19:33] LABS: Lab Add On Test DONE
[2022-09-10 19:43] LABS: Uric Acid 9.8 mg/dL (2.6-6.0)
[2022-09-11 21:47] LABS: T3,Free 3.1 pg/mL (2.8-5.3)
== END 2022-09-10 16:59 | disposition home or self-care (01) ==
LOC: LBO 16:58
PROVIDERS: PCP Student in an Organized Health Care Education/Training Program; Visit Provider Student in an Organized Health Care Education/Training Program
DX: E78.2 Mixed hyperlipidemia (principal); L29.8 Other pruritus; N17.9 Acute kidney failure, unspecified; G93.31 Postviral fatigue syndrome; K31.84 Gastroparesis; R94.6 Abnormal results of thyroid function studies; Z86.39 Personal history of other endocrine, nutritional and metabolic disease; E11.9 Type 2 diabetes mellitus without complications
CPT/HCPCS: 36415; 80053; 84439; 84443; 84481; 84550; 85025; 86140

== ENCOUNTER 2022-11-09 13:59 | Outpatient (REF) | payer MEDICARE, OTHER, SELFPAY ==
[2022-11-11 09:50] LABS: IgA 289 mg/dL (85-499); IgG 1044 mg/dL (610-1616); IgM 104 mg/dL (35-242)
[2022-11-12 09:57] LABS: IgE 30 IU/mL (<158)
== END 2022-11-09 14:00 | disposition home or self-care (01) ==
LOC: LBN 13:59
PROVIDERS: PCP Student in an Organized Health Care Education/Training Program; Visit Provider Student in an Organized Health Care Education/Training Program
DX: U09.9 Post COVID-19 condition, unspecified (principal)
CPT/HCPCS: 82784; 82785; 82787

== ENCOUNTER 2022-11-30 03:07 | Outpatient (CLI) | payer MEDICARE, OTHER, SELFPAY ==
[2022-11-30 13:35] LABS: Abs Immature Grans 0.02 10^3/uL (0.0-0.06); Absolute Basophil Count 0.06 10^3/uL (0.0-0.2); Absolute Eosinophil Count 0.17 10^3/uL (0.0-0.7); Absolute Lymphocyte Count 2.22 10^3/uL (1.2-3.4); Absolute Neutrophil Count 4.12 10^3/uL (1.2-6.7); Basophils % 0.8; Eosinophils % 2.4; HCT 37.7 % (36.0-46.0); HGB 12.5 g/dL (11.2-15.7); Immature Grans % 0.3; Lymphocytes % 31.3; MCH 30.6 pg (27.0-33.0); MCHC 33.2 % (32.0-36.0); MCV 92 fL (80-95); MPV 9.8 fL (8.0-11.0); Monocytes % 7.1; Neutrophils % 58.1; Platelet Count 246 10^3/uL (130-400); RBC 4.09 10^6/uL (3.93-5.22); RDW 12.1 % (11.7-14.6); RDW-SD 41.1 fL; WBC 7.09 10^3/uL (4.4-10.8)
[2022-11-30 14:18] LABS: C-Reactive Protein 0.16 mg/dL (0.0-0.3); Magnesium 1.9 mg/dL (1.8-2.4); Uric Acid 8.7 mg/dL (2.6-6.0)
[2022-11-30 23:49] LABS: Parathyroid Hormone,Intact 317 pg/mL (19-88)
[2022-12-01 10:58] LABS: Kappa Free Light Chain 7.21 mg/dL (0.33-1.94); Lambda Free Light Chain 4.28 mg/dL (0.57-2.63)
== END 2022-11-30 03:08 | disposition home or self-care (01) ==
LOC: LBO 03:14
PROVIDERS: PCP Student in an Organized Health Care Education/Training Program; Visit Provider Student in an Organized Health Care Education/Training Program
DX: E79.0 Hyperuricemia without signs of inflammatory arthritis and tophaceous disease (principal); M25.50 Pain in unspecified joint; N17.9 Acute kidney failure, unspecified; K31.84 Gastroparesis; M06.09 Rheumatoid arthritis without rheumatoid factor, multiple sites; N18.2 Chronic kidney disease, stage 2 (mild); E11.9 Type 2 diabetes mellitus without complications; E03.9 Hypothyroidism, unspecified
CPT/HCPCS: 36415; 83735; 83883; 83970; 84550; 85025; 86140

== ENCOUNTER 2023-01-28 04:42 | Outpatient (CLI) | payer MEDICARE, OTHER, SELFPAY ==
[2023-01-28] MEDS: Inhaler, Assist Device 1 EACH MC (14:10)
[2023-01-28] MEDS: Levalbuterol HFA 15 GM INH 4 PUFF IH (14:10)
--- NOTE | 2023-02-01 10:37 | PFT_ITS ---
Date of service: 01/28/23 Time of Service: 12:56 Pulmonary Function Test Result Indications: [facility] Interpretation Spirometry: There is no airflow limitation. No bronchodilator response. Lung Volumes: Normal lung volumes Diffusion Capacity: Normal diffusion Airway Pressure: Normal airways resistance Impression Normal pulmonary function testing Clinical Correlation therefore is recommended.
== END 2023-01-28 04:43 | disposition home or self-care (01) ==
LOC: RT 04:42
PROVIDERS: PCP Student in an Organized Health Care Education/Training Program; Visit Provider Student in an Organized Health Care Education/Training Program
DX: U09.9 Post COVID-19 condition, unspecified (principal)
CPT/HCPCS: 94060; 94726; 94729

== ENCOUNTER → 2023-02-21 14:55 | Outpatient (BNVA) | payer MEDICARE, OTHER, SELFPAY | PROVIDERS: PCP Student in an Organized Health Care Education/Training Program; Referring Provider Student in an Organized Health Care Education/Training Program; Visit Provider Physician Assistant Surgical | DX: J45.909 Unspecified asthma, uncomplicated (principal); U09.9 Post COVID-19 condition, unspecified | CPT/HCPCS: 36415; 80053; 82043; 82570; 83690; 99214; 81003; 81015; 82565; 83735; 83970; 84100; 84156; 85025; 86140 ==

== ENCOUNTER 2023-02-21 16:08 | Outpatient (CLI) | payer MEDICARE, OTHER, SELFPAY ==
[2023-02-21 16:28] LABS: Abs Immature Grans 0.03 10^3/uL (0.0-0.06); Absolute Basophil Count 0.04 10^3/uL (0.0-0.2); Absolute Eosinophil Count 0.09 10^3/uL (0.0-0.7); Absolute Lymphocyte Count 1.99 10^3/uL (1.2-3.4); Absolute Monocyte Count 0.44 10^3/uL (0.1-0.8); Absolute Neutrophil Count 3.76 10^3/uL (1.2-6.7); Basophils % 0.6; Eosinophils % 1.4; HCT 33.5 % (36.0-46.0); HGB 11.3 g/dL (11.2-15.7); Immature Grans % 0.5; Lymphocytes % 31.3; MCHC 33.7 % (32.0-36.0); MCV 98 fL (80-95); MPV 10.5 fL (8.0-11.0); Monocytes % 6.9; Neutrophils % 59.3; Platelet Count 246 10^3/uL (130-400); RBC 3.42 10^6/uL (3.93-5.22); RDW 12.5 % (11.7-14.6); RDW-SD 45.5 fL; WBC 6.35 10^3/uL (4.4-10.8)
[2023-02-21 16:39] LABS: Bilirubin Negative (Negative); Blood Negative (Negative); Clarity Clear (Clear); Glucose Negative (Negative); Ketones Negative (Negative); Leukocyte Esterase Trace (Negative); Nitrite Negative (Negative); Specific Gravity 1.015 (1.005-1.025); Urobilinogen 0.2 mg/dL (Up to 0.2)
[2023-02-21 16:43] LABS: ALT 155 U/L (14-59); AST 103 U/L (15-37); Albumin 3.7 g/dL (3.4-5.0); Alkaline Phosphatase 183 U/L (46-116); Anion Gap 6.6 mmol/L (3-11); BUN 37 mg/dL (7-18); Bilirubin, Total 0.3 mg/dL (0.2-1.0); CO2 29.4 mmol/L (21.0-32.0); CREATININE 2.3 mg/dL (0.55-1.02); Calcium 8.8 mg/dL (8.5-10.1); Chloride 106 mmol/L (98-107); Estimated GFR 23.74 (mL/min/1.73m2); Glucose 137 mg/dL (74-106); Lipase 27 U/L (16-77); Magnesium 1.9 mg/dL (1.8-2.4); PHOSPHORUS 4.2 mg/dL (2.6-4.7); Potassium 4.1 mmol/L (3.5-5.1); Sodium 142 mmol/L (136-145); Total Protein 7.1 g/dL (6.4-8.2)
[2023-02-21 16:47] LABS: C-Reactive Protein < 0.05 mg/dL (0.0-0.3)
[2023-02-21 16:50] LABS: Bacteria Negative HPF (Negative); COMMENT (LAB VIEW ONLY) 20.96 mg/dL; Epithelial Cells Rare HPF (Negative); Mucus Negative (Negative); RBC Negative HPF (0-2); WBC 0-2 HPF (0-5)
[2023-02-21 16:51] LABS: C & S Indicated? No; Crystals Other HPF (Negative)
[2023-02-21 17:08] LABS: PROTEIN < 6.0 mg/dL
[2023-02-22 20:15] LABS: Parathyroid Hormone,Intact 326 pg/mL (19-88)
[2023-02-24 14:19] LABS: Albumin, Random Ur <5.0 mg/L; Albumin/Creatinine Ratio <19 mg/g (<25)
== END 2023-02-21 16:09 | disposition home or self-care (01) ==
LOC: LBO 16:08
PROVIDERS: PCP Student in an Organized Health Care Education/Training Program; Visit Provider Internal Medicine Nephrology
DX: E10.22 Type 1 diabetes mellitus with diabetic chronic kidney disease (principal); N18.4 Chronic kidney disease, stage 4 (severe); E21.3 Hyperparathyroidism, unspecified; R11.2 Nausea with vomiting, unspecified
CPT/HCPCS: 36415; 80053; 82043; 82570; 83690; 81003; 81015; 82565; 83735; 83970; 84100; 84156; 85025; 86140

== ENCOUNTER 2023-03-07 03:37 | Outpatient (CLI) | payer MEDICARE, OTHER, SELFPAY ==
[2023-03-07 12:12] LABS: Anion Gap 11.2 mmol/L (3-11); BUN 26 mg/dL (7-18); CO2 24.8 mmol/L (21.0-32.0); CREATININE 1.9 mg/dL (0.55-1.02); Calcium 8.9 mg/dL (8.5-10.1); Calculated LDL 68 mg/dL (<100); Chloride 107 mmol/L (98-107); Cholesterol 163 mg/dL (<200); Estimated GFR 29.86 (mL/min/1.73m2); Glucose 306 mg/dL (74-106); HDL Cholesterol 38 mg/dL (40-60); Potassium 3.8 mmol/L (3.5-5.1); Sodium 143 mmol/L (136-145); Triglyceride 289 mg/dL (<150)
[2023-03-07 12:25] LABS: Lipase 26 U/L (16-77)
== END 2023-03-07 03:38 | disposition home or self-care (01) ==
PROVIDERS: Absent Provider Student in an Organized Health Care Education/Training Program; PCP Student in an Organized Health Care Education/Training Program; Referring Provider Student in an Organized Health Care Education/Training Program; Visit Provider Student in an Organized Health Care Education/Training Program
DX: D36.10 Benign neoplasm of peripheral nerves and autonomic nervous system, unspecified (principal); K25.9 Gastric ulcer, unspecified as acute or chronic, without hemorrhage or perforation; K85.90 Acute pancreatitis without necrosis or infection, unspecified; N15.9 Renal tubulo-interstitial disease, unspecified; N23 Unspecified renal colic; Z79.899 Other long term (current) drug therapy; N17.9 Acute kidney failure, unspecified; Z91.89 Other specified personal risk factors, not elsewhere classified
CPT/HCPCS: 36415; 80048; 80061; 83690

== ENCOUNTER 2023-03-14 14:57 | Emergency (ER) | payer MEDICARE, OTHER, SELFPAY ==
[2023-03-14 14:58] VITALS: BP 152/65; PULSE 94; RESP 14; TEMP 36.7; O2SAT 99
--- NOTE | 2023-03-14 15:04 | W.ED.GENAD ---
Discharge Plan Disposition Patient Disposition: Home Condition: Good Discharge Details Clinical Impression: Finger sprain Primary Care Provider: Lore Roman ED Provider: Edson Vidal Home Meds and New Rx's Prescriptions: Continued mupirocin 2 % ointment 1 applic topical TID Qty: 22 1RF Rx Instructions: to injured finger (DME) pen needle, diabetic [BD Ultra-Fine Sobia Pen Needle] 32 gauge x 5/32 needle See Rx Instructions .ROUTE .MEDSUPPLY Qty: 360 3RF Rx Instructions: Pt to use with Novolog tid and daily with Tresiba albuterol sulfate [ProAir HFA] 90 mcg/actuation HFA aerosol inhaler 1 inh Inhalation PRN Qty: 25.5 3RF Rx Instructions: 3 Canisters please venlafaxine [Effexor XR] 150 mg capsule,extended release 24hr 150 mg PO DAILY Qty: 90 3RF glucagon 1 mg/0.2 mL solution 1 mg subcut Q20M PRN (Reason: hypoglycemia) Qty: 0.6 1RF Rx Instructions: until target blood sugar attained glucagon 3 mg/actuation spray,non-aerosol 3 mg intranasal ONCE Qty: 3 1RF Rx Instructions: For acute hyperglycemia episodes ondansetron HCl 8 mg tablet 8 mg PO Q8H PRN (Reason: nausea and vomiting) Qty: 90 3RF Rx Instructions: Hx PRN use for nausea (do not use regularly with FLUCONAZOLE) Rinvoq 15 mg tablet extended release 24 hr 15 mg PO DAILY methocarbamol 750 mg tablet 1,500 mg PO Q8H MDD 4.5g Qty: 540 0RF Rx Instructions: 90 day furosemide 80 mg tablet 80 mg PO DAILY Qty: 90 3RF montelukast 10 mg tablet 10 mg PO HS Qty: 90 3RF sucralfate 1 gram tablet 1 g PO BID Qty: 90 2RF Rx Instructions: try as slurry, crushing tab in water Viibryd 20 mg tablet 20 mg PO DAILY Qty: 90 3RF folic acid 1 mg tablet 1 mg PO DAILY Qty: 90 3RF Rx Instructions: per [facility] med list cc Tresiba FlexTouch U-200 200 unit/mL (3 mL) insulin pen 110 unit subcut DAILY Qty: 63 3RF Rx Instructions: 3-month supply (twenty-one (3ml) pens) potassium chloride 10 mEq capsule, extended release 40 meq PO DAILY sumatriptan succinate 100 mg tablet 100 mg PO PRN Qty: 18 3RF ipratropium-albuterol 0.5 mg-3 mg(2.5 mg base)/3 mL solution for nebulization 3 ml inhalation Q4H PRN (Reason: cough; bronchspasm; phlegm) Qty: 90 1RF Rx Instructions: Trial for chest congestion, bronchspasm Trelegy Ellipta 100-62.5-25 mcg blister with device 1 inh inhalation DAILY Qty: 3 12RF clonazepam 0.5 mg tablet 0.5 mg PO QHS Qty: 84 2RF Rx Instructions: administer 30 minutes before bedtime polyethylene glycol 3350 [Miralax] 17 gram/dose powder 8.5 g PO DAILY Rx Instructions: 06/04/21 [facility] [place] Gastro magnesium oxide 400 mg magnesium capsule 400 mg PO DAILY Motegrity 2 mg tablet 2 mg PO DAILY Rx Instructions: per note dated 02/18/22 [facility] cc lubiprostone [Amitiza] 24 mcg capsule 24 mcg PO BID Rx Instructions: with meals per note dated 02/18/22 [facility] cc (DME) Meyer Sensors See Rx Instructions .Route .MEDSUPPLY Qty: 2 0RF Rx Instructions: As directed for DM Mgmt, E11.9, for A1C < 7 (DME) FreeStyle Natalie 14 Day Elk Misc See Rx Instructions .Route Qty: 1 0RF Rx Instructions: As directed for continuous glucose monitoring; E11.9, for A1C < 7 (DME) FreeStyle Natalie 2 Sensor Kit See Rx Instructions .Route Qty: 2 1RF Rx Instructions: As directed for continuous glucose monitoring. DX E11.9, for A1C<7 ergocalciferol (vitamin D2) 1,250 mcg (50,000 unit) capsule 50,000 unit PO QWEEK Qty: 30 3RF cholecalciferol (vitamin D3) 50 mcg (2,000 unit) capsule 50 mcg PO DAILY sodium bicarbonate 650 mg tablet 1,300 mg PO BID Rx Instructions: 01/20/23: [facility] Nephrology note 01/18/23.HE cholecalciferol (vitamin D3) 25 mcg (1,000 unit) capsule 25 mcg PO DAILY Patient Comments: [facility] note 01/18/23 Labs in 4 weeks to recheck D, Phosphorus PTH, Serum CO2, K.HE Rx Instructions: 01/20/23: [facility] Nephrology note 01/18/23. No dose given.HE famotidine [Pepcid] 20 mg tablet 20 mg PO DAILY Patient Comments: 01/27/23 [facility] Rheumatology note, this replaces Protonix (which is still on list until next visit).HE cetirizine [Zyrtec] 10 mg tablet 10 mg PO DAILY Rx Instructions: 01/27/23 [facility] Derm note: Ok to increase to BID if sx of itch persist. Novolog PenFill U-100 Insulin 100 unit/mL cartridge 48 unit subcut TID MDD 90 units Qty: 135 3RF gabapentin 600 mg tablet 600 mg PO TID Qty: 270 3RF topiramate [Topamax] 50 mg tablet 50 mg PO BID Qty: 180 3RF insulin aspart U-100 [Novolog FlexPen U-100 Insulin] 100 unit/mL (3 mL) insulin pen 48 unit subcut TID MDD 144u Qty: 45 3RF Rx Instructions: Continue FLEXPEN, unless changed by Endocrine or CDE tramadol 50 mg tablet 50 mg PO BID MDD 100mg PRN (Reason: pain) Qty: 180 0RF Discharge Instructions Instructions: Sprain (ED) Additional Instructions: X-rays of your finger do not reveal any fracture or dislocation. Swelling and bruising should improve over the next 1 to 2 weeks. Ice, elevation, acetaminophen as needed. Follow-up with primary care if no significant improvement in the next 2 weeks. Return to ED for significantly worsening pain, weakness or numbness involving the finger, other concerns. Medical Decision Making X-rays of the left index finger ordered. Per my read there is no fracture or dislocation noted. Patient instructed to use ice, elevation, ibuprofen or acetaminophen as needed. Should expect improvement over the next week or so. Follow-up with primary care if not. Return precautions provided. HPI General Mode of arrival: ambulatory. Date/Time Provider Initiated Documentation: 03/14/23 15:03. Limitations to Documentation: no limitations. Information obtained by: patient. HPI Narrative: Patient is a right hand dominant female presenting to ED with left index finger injury. Patient was putting a pots away yesterday and needed to jam them in under the cupboard with force. Suffered injury at that time but was painful transiently. In September has noticed increase swelling, discomfort, bruising. She was concerned that maybe she broke the finger and came in for evaluation this afternoon. Denies any other injury or complaint. Is able to flex and extend the finger though limited mostly due to swelling. Cap refill present. Sensation present. Related Data Home Medications Medication Instructions Recorded Confirmed sumatriptan succinate 100 mg tablet 100 mg PO PRN migraine headache 04/25/21 03/14/23 #18 tabs polyethylene glycol 3350 17 8.5 g PO DAILY 06/15/21 03/14/23 gram/dose oral powder (Miralax) magnesium oxide 400 mg PO DAILY 08/13/21 03/14/23 lubiprostone 24 mcg capsule 24 mcg PO BID 02/25/22 03/14/23 (Amitiza) prucalopride 2 mg tablet 2 mg PO DAILY 02/25/22 03/14/23 (Motegrity) mupirocin 2 % topical ointment 1 applic topical TID #22 grams 02/27/22 03/14/23 pen needle, diabetic 32 gauge x #360 ea 02/27/22 03/14/23/32 (BD Ultra-Fine Sobia Pen Needle) Meyer Sensors #2 ea 04/29/22 03/14/23 flash glucose scanning reader #1 ea 05/18/22 03/14/23 (FreeStyle Natalie 14 Day Elk) albuterol sulfate 90 mcg/actuation 1 inh inhalation PRN shortness of 05/25/22 03/14/23 aerosol inhaler (ProAir HFA) breath or wheezing #25.5 grams glucagon 1 mg/0.2 mL subcutaneous 1 mg (0.2 mL) subcut Q20M PRN 05/25/22 03/14/23 solution hypoglycemia #0.6 mL glucagon 3 mg/actuation nasal spray 3 mg intranasal ONCE #3 ea 05/25/22 03/14/23 venlafaxine 150 mg 150 mg PO DAILY #90 caps 05/25/22 03/14/23 capsule,extended release 24 hr (Effexor XR) ipratropium 0.5 mg-albuterol 3 mg 3 ml inhalation Q4H PRN cough; 06/04/22 03/14/23 (2.5 mg base)/3 mL nebulization bronchspasm; phlegm #90 mL soln flash glucose sensor (FreeStyle #2 ea 07/20/22 03/14/23 Natalie 2 Sensor kit) ondansetron HCl 8 mg tablet 8 mg PO Q8H PRN nausea and 08/06/22 03/14/23 vomiting #90 tabs fluticasone fur. 100 mcg-umeclid 1 inh inhalation DAILY #3 multiple 11/09/22 03/14/23 62.5 mcg-vilant 25 mcg units inhalat.powder (Trelegy Ellipta) folic acid 1 mg tablet 1 mg PO DAILY #90 tabs 11/30/22 03/14/23 furosemide 80 mg tablet 80 mg PO DAILY #90 tabs 11/30/22 03/14/23 insulin degludec 200 unit/mL (3 110 unit (0.55 mL) subcut DAILY 11/30/22 03/14/23 mL) subcutaneous pen (Tresiba #63 mL FlexTouch U-200 insulin) methocarbamol 750 mg tablet 1,500 mg (2 x 750 mg) PO Q8H #540 11/30/22 03/14/23 tabs montelukast 10 mg tablet 10 mg PO HS #90 tabs 11/30/22 03/14/23 sucralfate 1 gram tablet 1 g PO BID #90 tabs 11/30/22 03/14/23 upadacitinib 15 mg tablet,extended 15 mg PO DAILY 11/30/22 03/14/23 release 24 hr (Rinvoq) vilazodone 20 mg tablet (Viibryd) 20 mg PO DAILY #90 tabs 11/30/22 03/14/23 ergocalciferol (vitamin D2) 1,250 50,000 unit PO QWEEK #30 caps 12/03/22 03/14/23 mcg (50,000 unit) capsule cholecalciferol (vitamin D3) 50 50 mcg PO DAILY 12/29/22 03/14/23 mcg (2,000 unit) capsule cholecalciferol (vitamin D3) 25 25 mcg PO DAILY 01/20/23 03/14/23 mcg (1,000 unit) capsule sodium bicarbonate 650 mg tablet 1,300 mg PO BID 01/20/23 03/14/23 famotidine 20 mg tablet (Pepcid) 20 mg PO DAILY 02/01/23 03/14/23 cetirizine 10 mg tablet (Zyrtec) 10 mg PO DAILY 02/03/23 03/14/23 gabapentin 600 mg tablet 600 mg PO TID #270 tabs 02/08/23 03/14/23 insulin aspart U-100 100 unit/mL 48 unit (0.48 mL) subcut TID #135 02/08/23 03/14/23 subcutaneous cartridge (Novolog mL PenFill U-100 Insulin aspart) topiramate 50 mg tablet (Topamax) 50 mg PO BID #180 tabs 02/08/23 03/14/23 insulin aspart U-100 100 unit/mL 48 unit (0.48 mL) subcut TID to 02/15/23 03/14/23 (3 mL) subcutaneous pen (Novolog manage diabetes, A1C < 6 #45 mL FlexPen U-100 Insulin aspart) potassium chloride 10 mEq 40 meq PO DAILY 02/21/23 03/14/23 capsule,extended release clonazepam 0.5 mg tablet 0.5 mg PO QHS #84 tabs 03/09/23 03/14/23 tramadol 50 mg tablet 50 mg PO BID PRN pain #180 tabs 03/09/23 03/14/23 Previous Rx's Medication Instructions Recorded sumatriptan succinate 100 mg tablet 100 mg PO PRN migraine headache 04/25/21 #18 tabs mupirocin 2 % topical ointment 1 applic topical TID #22 grams 02/27/22 pen needle, diabetic 32 gauge x #360 ea 02/27/22 (BD Ultra-Fine Sobia Pen Needle) Meyer Sensors #2 ea 04/29/22 flash glucose scanning reader #1 ea 05/18/22 (FreeStyle Natalie 14 Day Elk) albuterol sulfate 90 mcg/actuation 1 inh inhalation PRN shortness of 05/25/22 aerosol inhaler (ProAir HFA) breath or wheezing #25.5 grams glucagon 1 mg/0.2 mL subcutaneous 1 mg (0.2 mL) subcut Q20M PRN 05/25/22 solution hypoglycemia #0.6 mL glucagon 3 mg/actuation nasal spray 3 mg intranasal ONCE #3 ea 05/25/22 venlafaxine 150 mg 150 mg PO DAILY #90 caps 05/25/22 capsule,extended release 24 hr (Effexor XR) ipratropium 0.5 mg-albuterol 3 mg 3 ml inhalation Q4H PRN cough; 06/04/22 (2.5 mg base)/3 mL nebulization bronchspasm; phlegm #90 mL soln flash glucose sensor (FreeStyle #2 ea 07/20/22 Natalie 2 Sensor kit) ondansetron HCl 8 mg tablet 8 mg PO Q8H PRN nausea and 08/06/22 vomiting #90 tabs fluticasone fur. 100 mcg-umeclid 1 inh inhalation DAILY #3 multiple 11/09/22 62.5 mcg-vilant 25 mcg units inhalat.powder (Trelegy Ellipta) folic acid 1 mg tablet 1 mg PO DAILY #90 tabs 11/30/22 furosemide 80 mg tablet 80 mg PO DAILY #90 tabs 11/30/22 insulin degludec 200 unit/mL (3 110 unit (0.55 mL) subcut DAILY 11/30/22 mL) subcutaneous pen (Tresiba #63 mL FlexTouch U-200 insulin) methocarbamol 750 mg tablet 1,500 mg (2 x 750 mg) PO Q8H #540 11/30/22 tabs montelukast 10 mg tablet 10 mg PO HS #90 tabs 11/30/22 sucralfate 1 gram tablet 1 g PO BID #90 tabs 11/30/22 vilazodone 20 mg tablet (Viibryd) 20 mg PO DAILY #90 tabs 11/30/22 ergocalciferol (vitamin D2) 1,250 50,000 unit PO QWEEK #30 caps 12/03/22 mcg (50,000 unit) capsule gabapentin 600 mg tablet 600 mg PO TID #270 tabs 02/08/23 insulin aspart U-100 100 unit/mL 48 unit (0.48 mL) subcut TID #135 02/08/23 subcutaneous cartridge (Novolog mL PenFill U-100 Insulin aspart) topiramate 50 mg tablet (Topamax) 50 mg PO BID #180 tabs 02/08/23 insulin aspart U-100 100 unit/mL 48 unit (0.48 mL) subcut TID to 02/15/23 (3 mL) subcutaneous pen (Novolog manage diabetes, A1C < 6 #45 mL FlexPen U-100 Insulin aspart) clonazepam 0.5 mg tablet 0.5 mg PO QHS #84 tabs 03/09/23 tramadol 50 mg tablet 50 mg PO BID PRN pain #180 tabs 03/09/23 Allergies Allergy/AdvReac Type Severity Reaction Status Date / Time adhesive tape Allergy Skin Rash Verified 03/14/23 15:09 cefaclor [From Ceclor] Allergy Verified 03/14/23 15:09 erythromycin base Allergy breathing Verified 03/14/23 15:09 problems hydromorphone [From Dilaudid] Allergy I stop Verified 03/14/23 15:09 breathing iodine Allergy rash & Verified 03/14/23 15:09 breathing problems lamotrigine Allergy rash, Verified 03/14/23 15:09 asthma levofloxacin [From Levaquin] Allergy turns my Verified 03/14/23 15:09 legs blue and my blood from my legs pools meperidine [From Demerol] Allergy severe Verified 03/14/23 15:09 itching morphine Allergy breathing Verified 03/14/23 15:09 problems promethazine [From Phenergan] Allergy facial Verified 03/14/23 15:09 droop & tick vancomycin Allergy Verified 03/14/23 15:09 scopolamine AdvReac Significant Verified 03/14/23 15:09 N/V with patch urea Allergy skin Uncoded 03/14/23 15:09 blisters General Stated Complaint: Orthopedic PURA: 4 Review of Systems Narrative: per HPI PFSH All Active Problems (Updated 03/14/23 @ 15:29 by Edson Vidal MD) Finger sprain (Acute) 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 but may need closer attention [ ] Nephro (Calciphylaxis DDx per ED) Chronic kidney disease, stage 2 (mild) (Chronic) Hx Nephro Eval ([place]), stable. GFR 46, 02/2021 (@ baseline per July 2020, but higher than 2019). Neuroma (Acute) Osteoarthritis of knees, bilateral (Acute ~01/2023) 02/07/23 [facility] Prurigo nodularis (Acute ~01/27/23) 01/27/23 [facility] [place] note (scalp & face).HE 02/08/23 F/u Derm Diabetes (Chronic) A1C 6.7 01/26/19 DM > 30 years, with nausea 2' gastroparesis Tubulointerstitial nephritis (Acute) Diabetic nephropathy (Acute) Rheumatoid arthritis of multiple sites with negative rheumatoid factor (Acute) Patellofemoral arthritis (Acute) Bilaterally, Gerry note 5. w/ Supartz injections.HE Asthma exacerbation, mild (Acute) assoc with pruritic episode? Asthma (Chronic) Trelegy is making huge difference (11/2022); rarely needs rescue now! (Hx Breo), w/ Albuterol rescue (08/2022) Pruritic disorder (Acute) No rash, severe, x 3 days, affecting sleep/ADL. Neuropathy (Acute) Hypothyroid (Chronic) ID per elevated TSH, 07/2020 ..Tolerating levothyr. Review w/ Endocrine? Cervical spondylosis (Acute) 08/13/21 [facility] Neurology note - Lumbar spondylosis Sleep apnea (Acute) Unable to tolerate CPAP; interested in dental mouthpiece. Last study @ [place]. Chronic gastroesophageal reflux disease (Acute) Gastric paresis (Acute) Disability Irritable bowel syndrome with diarrhea (Acute ~06/15/21) Abdominal lump (Acute) Central, sub-sternal .. mild tenderness .. growing larger .. lipoma vs hernia? High risk medication use (Acute) 05/26/21 [facility] [place] Rheumatology note Osteoarthritis of multiple joints (Acute) 05/26/21 [facility] Rheumatology note Muscle cramps (Acute) 05/26/21 [facility] Rheumatology note 08/13/21 [facility] Neurology - muscle spasm Post-traumatic osteoarthritis, right ankle and foot (Acute) Fibromyalgia (Acute) Chronic pain (Chronic) Elevated CPK (Acute) 05/11/2019 [facility] [place] Rheum Rheumatoid arthritis (Chronic) [facility] .. Xeljanz, Methotrexate, Prednisone PRN Primary generalized (osteo)arthritis (Acute) 05/11/2019 [facility] [place] Rheum. Bilateral cataracts (Acute) Migraine (Chronic) Insomnia (Acute) Mixed anxiety and depressive disorder (Acute) Abnormal bruising (Acute) Anemia (Chronic) Mixed hyperlipidemia (Acute) Vitamin D deficiency (Acute) Medical History Pancreatitis Plantar fasciitis of right foot Insertional Achilles tendinopathy R side, MRI shows arthritis of this joint as well. Nonspecific reactive hepatitis 05/26/21 [facility] Rheumatology note Elevated LFTs 05/26/21 [facility] Rheumatology note Muscle stiffness 05/26/21 [facility] [place] Rheumatology note Fasciculations 05/26/21 [facility] Rheumatology note Intertrigo Possible Erythrasmus, acute on chronic .. CLindamycin seems to be working, 04/2021. Acute bronchitis with bronchospasm with cough and pleurisy Hypoglycemia Urgent, with unresponsiveness, #2! .. EMT measured 46 (02/22/22), gave D10 --> BG 106 [but hen ??].. #1 was last week Calciphylaxis Ahmadi's cyst, ruptured per [place], ED, 02/08/22 --> improved per 02/23/22 US. Skin lesion of right leg rt calf, with Hx progressing rash-like lesion, with edema. Bx (tess-vascular dermatitis w/ eosinophils) Diabetic retinopathy of both eyes without macular edema associated with type 2 diabetes mellitus (12/23/21) moderate Achilles tendinitis left 09/19/18 right 10/13/21 (Gerry) with Rubin's deformity Nasal vestibulitis 08/19/21 Dr Grant, R nasal biopsy done Ulcer of nose Right nare, acute on chronic History of fracture of right ankle Colon polyps (08/04/15) 2016 5 mm cessile, 2019 colo repeat 2-3 yrs. Laceration left index finger Unspecified corneal ulcer, left eye Dr. Saavedra 11/23/2019 [facility] Neurodermatitis Allergic rhinitis Hammertoe of left foot Arthritis Surgical History H/O Achilles tendon repair (12/2021) Right repair of insertional achilles tendon rupture and resection of Rubin deformity, excision of os trigonum, FHL transfer, and gastroc slide S/P endoscopy 08/03/19 [facility] 10/12/22 [facility] S/P colonoscopy 08/03/19 [facility] - repeat in 2-3 years 10/12/22 [facility] [place]-repeat in 5 yrs History of carpal tunnel surgery (~2005) bilateral History of thumb surgery (~2014) bilateral H/O hernia repair (~2014) History of cholecystectomy H/O Achilles tendon repair (~2016) History of gastric bypass (~2003) Family History Mother Diabetes Hypertension Brother Substance abuse Asthma Sister Substance abuse Asthma Anxiety Other S/P endoscopy Social History Smoking/Tobacco Use Status: Never Smoking risk assessment performed?: Yes Alcohol Intake: current Alcohol Intake frequency: holidays/special occasions only Drug use: Never Substance use type: does not use Adopted: Yes Caregiver/Support person: Yes Foster care: No Household members: friend(s) Housing: house Number of Children: 0 Do you need help understanding health information?: Never current occupation: Disabled Do you think of yourself as: lesbian/diana/homosexual Current gender identity: female What is your relationship status?: living with partner Panel score (0-1 are the most socially isolated patients): 1 What type of physical activity do you participate in: none Duration: < 15 minutes/day Seatbelt use: always Do you feel safe at home: Yes Do you feel safe in your relationship?: Yes Exam Narrative Exam Narrative: Const: WDWN female in NAD. HEENT: NC/AT. Normal facial exam. Eyes: Normal conjunctiva and sclera. Neck: Supple. Trachea midline. Lungs: Normal respiratory effort. Neuro: A+O x 3. Normal speech, mentation, gait. Cranial nerves II - XII grossly intact. No gross motor or sensory deficit. Ext: Left hand with swollen bruised index finger proximal between the MCP joint and the PIP joint. Course Vital Signs Vital signs: Vital Signs Temperature 98.1 F 03/14/23 14:58 Pulse 94 H 03/14/23 14:58 Respiratory Rate 14 03/14/23 14:58 Blood Pressure 152/65 H 03/14/23 14:58 Pulse Oximetry 99 03/14/23 14:58 Temperature 98.1 F 03/14/23 14:58 Temperature Source Temporal Artery Scan 03/14/23 14:58 Pulse 94 H 03/14/23 14:58 Respiratory Rate 14 03/14/23 14:58 Respiratory Effort Normal 03/14/23 15:02 Blood Pressure 152/65 H 03/14/23 14:58 Blood Pressure Position Sitting 03/14/23 14:58 Pulse Oximetry 99 03/14/23 14:58 Oxygen Delivery Method Room Air 03/14/23 14:58 Oxygen Flow Rate 0 03/14/23 14:58 Pain Level 6 03/14/23 14:58
--- NOTE | 2023-03-14 15:22 | DI.RAD_ITS ---
Exam(s) XR FINGER LT INDEX EXAM: XR FINGER LT INDEX CLINICAL HISTORY: trauma. TECHNIQUE: 2D digital imaging was performed. Three views. COMPARISON: None. FINDINGS: BONES: No acute fracture is present. No bony destructive lesion is seen. JOINTS: No dislocation present. SOFT TISSUE: Swelling. No foreign body. IMPRESSION: No acute bony abnormality. DATA REPOSITORY: RADIATION DOSE DELIVERED:
== END 2023-03-14 15:40 | disposition home or self-care (01) ==
LOC: ER 17:06
PROVIDERS: Emergency Provider Emergency Medicine; PCP Student in an Organized Health Care Education/Training Program
DX: S63.611A Unspecified sprain of left index finger, initial encounter; W22.8XXA Striking against or struck by other objects, initial encounter; Y93.89 Activity, other specified; K21.9 Gastro-esophageal reflux disease without esophagitis; E03.9 Hypothyroidism, unspecified; E11.22 Type 2 diabetes mellitus with diabetic chronic kidney disease; N18.2 Chronic kidney disease, stage 2 (mild); Z79.4 Long term (current) use of insulin; Z79.899 Other long term (current) drug therapy; Z88.1 Allergy status to other antibiotic agents; Z88.5 Allergy status to narcotic agent
CPT/HCPCS: 99283; 73140

== ENCOUNTER → 2023-03-14 15:25 | Outpatient (CLI) | payer MEDICARE, OTHER, SELFPAY ==
--- NOTE | 2023-03-14 13:30 | DI.US_ITS ---
Exam(s) US ABDOMEN LIMITED EXAM: US ABDOMEN LIMITED CLINICAL HISTORY: r/o biliary disease; s/p cholecystectomy, gastric ulcer, pancreatitis TECHNIQUE: Ultrasound abdomen performed using standard protocol. COMPARISON: CT CT ABDOMEN PELVIS W from 07/26/2019 FINDINGS: LIVER: Normal within normal limits in size. Severely increased density and decreased through transmi ssion consistent with severe hepatic steatosis.. Posterior portions of the liver are not well seen.. No focal liver lesions are seen. GALLBLADDER: S/p cholecystectomy. BILIARY SYSTEM: No intrahepatic or extrahepatic biliary ductal dilation. Right kidney: No evidence of renal calculi. No evidence of hydronephrosis. No renal mass or cyst irene ntified. PANCREAS: Normal where visualized. ABDOMINAL AORTA AND IVC: Visualized portions normal caliber. ASCITES: None seen. IMPRESSION: Severe hepatic steatosis. Status post cholecystectomy. No biliary dilatation. DATA REPOSITORY:
--- NOTE | 2023-03-14 13:30 | DI.US_ITS ---
Exam(s) US RENAL EXAM: US RENAL CLINICAL HISTORY: eval kidney, r/o hydronephrosis (LEFT), renal insuff, chronic kidney diseas. TECHNIQUE: Ruiz scale, color and spectral Doppler were used. COMPARISON: CT CT ABDOMEN PELVIS W from 07/26/2019 FINDINGS: Exam somewhat limited due to patient body habitus. Renal size in cm: Right: 11.2 left: 10.8 Echogenicity: Normal Hydronephrosis: No Cyst or mass: 2.2 centimeter cyst left kidney. No follow-up recommended. Seen on prior CT. Nephrolithiasis: No Bladder:Normal. Prevoid vol:100 cc Postvoid vol:0 cc IMPRESSION: No evidence of hydronephrosis. DATA REPOSITORY:
== END ==
PROVIDERS: PCP Student in an Organized Health Care Education/Training Program; Visit Provider Student in an Organized Health Care Education/Training Program
DX: D36.10 Benign neoplasm of peripheral nerves and autonomic nervous system, unspecified (principal); K85.90 Acute pancreatitis without necrosis or infection, unspecified; N15.9 Renal tubulo-interstitial disease, unspecified; Z79.899 Other long term (current) drug therapy; N18.2 Chronic kidney disease, stage 2 (mild)
CPT/HCPCS: 76770; 99283; 73140; 76705

== ENCOUNTER → 2023-03-30 01:49 | Outpatient (CLI) | payer MEDICARE, OTHER, SELFPAY ==
--- NOTE | 2023-03-30 07:00 | DI.US_ITS ---
Exam(s) US SOFT TISSUE EXTREMITY EXAM: US SOFT TISSUE EXTREMITY CLINICAL HISTORY: ? inner wrist neuroma,wrist pain,mass soft tissue wrist,M79.89,m25.539,. TECHNIQUE: Ultrasound was performed over the area of concern in the volar lateral aspect of the wris t. COMPARISON: Graphic images of 03/14/2023 reviewed. FINDINGS: This patient has had removal of the trapezium bone of the distal carpal row performed in [place] 2003. This was performed for degenerative changes at the 1st carpometacarpal joint. This area is partially included in the field of view of the left index finger images of 03/14/2023. i ndeed, those images reveal the trapezium to be absent. Today's ultrasound images reveal no evidence of cystic structure in this region. There is a more landon id-appearing somewhat indistinct structure in this area measuring approximately 1.6 x 0.8 cm correspo nds to her palpable finding. Appearance is nonspecific. IMPRESSION: There is a somewhat indistinct but a non cystic solid-appearing abnormality in the area palpable conc radu measuring approximately 16 x 8 mm. Does not have the appearance of a ganglion cyst. If clinical ly indicated follow-up MRI can be performed for added sensitivity and specificity. DATA REPOSITORY:
== END ==
PROVIDERS: PCP Student in an Organized Health Care Education/Training Program; Visit Provider Student in an Organized Health Care Education/Training Program
DX: D36.10 Benign neoplasm of peripheral nerves and autonomic nervous system, unspecified (principal); M79.89 Other specified soft tissue disorders
CPT/HCPCS: 76881

== ENCOUNTER 2023-03-30 13:08 | Outpatient (CLI) | payer MEDICARE, OTHER, SELFPAY ==
[2023-03-30 09:21] LABS: Abs Immature Grans 0.02 10^3/uL (0.0-0.06); Absolute Basophil Count 0.05 10^3/uL (0.0-0.2); Absolute Eosinophil Count 0.14 10^3/uL (0.0-0.7); Absolute Lymphocyte Count 1.31 10^3/uL (1.2-3.4); Basophils % 1.1; HCT 36.1 % (36.0-46.0); HGB 12.1 g/dL (11.2-15.7); Immature Grans % 0.4; Lymphocytes % 28.4; MCH 32.4 pg (27.0-33.0); MCHC 33.5 % (32.0-36.0); MCV 97 fL (80-95); MPV 10.2 fL (8.0-11.0); Monocytes % 10.8; Neutrophils % 56.3; Platelet Count 170 10^3/uL (130-400); RBC 3.74 10^6/uL (3.93-5.22); RDW 11.9 % (11.7-14.6); RDW-SD 42.3 fL; WBC 4.62 10^3/uL (4.4-10.8)
[2023-03-30 09:29] LABS: ESR 1 mm/hr (0-30)
[2023-03-30 10:00] LABS: ALT 93 U/L (14-59); AST 61 U/L (15-37); Albumin 3.5 g/dL (3.4-5.0); Alkaline Phosphatase 162 U/L (46-116); Anion Gap 8.5 mmol/L (3-11); BUN 40 mg/dL (7-18); Bilirubin, Total 0.4 mg/dL (0.2-1.0); CO2 26.5 mmol/L (21.0-32.0); Calcium 8.7 mg/dL (8.5-10.1); Chloride 108 mmol/L (98-107); Glucose 253 mg/dL (74-106); Potassium 4.4 mmol/L (3.5-5.1); Sodium 143 mmol/L (136-145); Total Protein 6.6 g/dL (6.4-8.2)
[2023-03-30 10:12] LABS: C-Reactive Protein < 0.05 mg/dL (0.0-0.3); Creatine Kinase 227 U/L (26-192); GGT 85 U/L (5-55); Uric Acid 9.2 mg/dL (2.6-6.0)
[2023-03-30 10:19] LABS: Vitamin D 25 Total 23.9 ng/mL (30-100)
== END 2023-03-30 13:09 | disposition home or self-care (01) ==
LOC: LBO 13:08
PROVIDERS: PCP Student in an Organized Health Care Education/Training Program; Visit Provider Internal Medicine Rheumatology
DX: Z79.899 Other long term (current) drug therapy (principal); N18.4 Chronic kidney disease, stage 4 (severe)
CPT/HCPCS: 36415; 76881; 80053; 82306; 82550; 85652; 82977; 84550; 85025; 86140

== ENCOUNTER 2023-04-22 03:25 | Outpatient (CLI) | payer MEDICARE, OTHER, SELFPAY ==
[2023-04-22 14:54] LABS: Abs Immature Grans 0.03 10^3/uL (0.0-0.06); Absolute Basophil Count 0.04 10^3/uL (0.0-0.2); Absolute Eosinophil Count 0.01 10^3/uL (0.0-0.7); Absolute Lymphocyte Count 0.73 10^3/uL (1.2-3.4); Absolute Monocyte Count 0.15 10^3/uL (0.1-0.8); Absolute Neutrophil Count 4.23 10^3/uL (1.2-6.7); Basophils % 0.8; ESR 1 mm/hr (0-30); Eosinophils % 0.2; HCT 39.7 % (36.0-46.0); HGB 13.6 g/dL (11.2-15.7); Immature Grans % 0.6; Lymphocytes % 14.1; MCH 32.4 pg (27.0-33.0); MCHC 34.3 % (32.0-36.0); MCV 95 fL (80-95); MPV 10.2 fL (8.0-11.0); Monocytes % 2.9; Neutrophils % 81.4; Platelet Count 196 10^3/uL (130-400); RDW 11.6 % (11.7-14.6); RDW-SD 40.3 fL; WBC 5.19 10^3/uL (4.4-10.8)
[2023-04-22 15:07] LABS: Bilirubin Negative (Negative); Blood Negative (Negative); Clarity Clear (Clear); Glucose Negative (Negative); Ketones Negative (Negative); Leukocyte Esterase Small (Negative); Nitrite Negative (Negative); Specific Gravity 1.015 (1.005-1.025); Urobilinogen 0.2 mg/dL (Up to 0.2)
[2023-04-22 15:14] LABS: Bacteria Rare HPF (Negative); Casts Negative LPF (Negative); Crystals Negative HPF (Negative); Epithelial Cells Rare HPF (Negative); Mucus Negative (Negative); RBC Negative HPF (0-2)
[2023-04-22 15:15] LABS: C & S Indicated? Yes
[2023-04-22 15:48] LABS: Vitamin D 25 Total 26.5 ng/mL (30-100)
[2023-04-22 16:08] LABS: COMMENT (LAB VIEW ONLY) < 13.00 mg/dL
[2023-04-22 16:21] LABS: ALT 112 U/L (14-59); AST 67 U/L (15-37); Albumin 3.8 g/dL (3.4-5.0); Alkaline Phosphatase 163 U/L (46-116); Anion Gap 13.4 mmol/L (3-11); BUN 26 mg/dL (7-18); Bilirubin, Total 0.4 mg/dL (0.2-1.0); CO2 24.6 mmol/L (21.0-32.0); CREATININE 1.8 mg/dL (0.55-1.02); Calculated LDL 118 mg/dL (<100); Chloride 110 mmol/L (98-107); Cholesterol 204 mg/dL (<200); Estimated GFR 31.66 (mL/min/1.73m2); Glucose 162 mg/dL (74-106); HDL Cholesterol 46 mg/dL (40-60); PHOSPHORUS 3.7 mg/dL (2.6-4.7); Potassium 4.2 mmol/L (3.5-5.1); Sodium 148 mmol/L (136-145); TSH 0.76 uIU/mL (0.36-3.74); Total Protein 6.9 g/dL (6.4-8.2); Triglyceride 202 mg/dL (<150)
[2023-04-22 17:03] LABS: C-Reactive Protein < 0.05 mg/dL (0.0-0.3); Creatine Kinase 285 U/L (26-192); GGT 83 U/L (5-55)
[2023-04-25 13:13] LABS: TB Interpretation Negative (Negative)
== END 2023-04-22 03:26 | disposition home or self-care (01) ==
PROVIDERS: PCP Student in an Organized Health Care Education/Training Program; Visit Provider Internal Medicine Rheumatology
DX: Z79.899 Other long term (current) drug therapy (principal); E78.2 Mixed hyperlipidemia
CPT/HCPCS: 36415; 80053; 80061; 82306; 82550; 85652; 81003; 81015; 82043; 82570; 82977; 84100; 84443; 84550; 85025; 86140; 86480; 87086

== ENCOUNTER → 2023-05-24 15:02 | Outpatient (BNVA) | payer MEDICARE, OTHER, SELFPAY | PROVIDERS: PCP Student in an Organized Health Care Education/Training Program; Referring Provider Student in an Organized Health Care Education/Training Program; Visit Provider Student in an Organized Health Care Education/Training Program | DX: J45.909 Unspecified asthma, uncomplicated (principal) | CPT/HCPCS: 99214 ==

== ENCOUNTER → 2023-06-10 00:44 | Outpatient (CLI) | payer MEDICARE, OTHER, SELFPAY ==
[2023-06-10 12:54] LABS: BUN 42 mg/dL (7-18); Calcium 8.6 mg/dL (8.5-10.1); Chloride 108 mmol/L (98-107); Glucose 100 mg/dL (74-106); Potassium 3.7 mmol/L (3.5-5.1); Sodium 144 mmol/L (136-145)
== END ==
PROVIDERS: PCP Student in an Organized Health Care Education/Training Program; Visit Provider Student in an Organized Health Care Education/Training Program
DX: I10 Essential (primary) hypertension (principal)
CPT/HCPCS: 80048

== ENCOUNTER 2023-07-14 15:20 | Outpatient (REF) | payer MEDICARE, OTHER, SELFPAY ==
[2023-07-14 19:57] LABS: COVID-19 PCR Negative (Negative); Influenza A PCR Positive (Negative); Influenza B PCR Negative (Negative); RSV PCR Negative (Negative)
[2023-07-14 19:58] LABS: Source NASOPHARYNX
== END 2023-07-14 15:21 | disposition home or self-care (01) ==
LOC: LBN 15:20
PROVIDERS: PCP Student in an Organized Health Care Education/Training Program; Referring Provider Student in an Organized Health Care Education/Training Program; Visit Provider Student in an Organized Health Care Education/Training Program
DX: R50.9 Fever, unspecified (principal); R09.81 Nasal congestion; R09.89 Other specified symptoms and signs involving the circulatory and respiratory systems; M79.18 Myalgia, other site; J02.9 Acute pharyngitis, unspecified; Z20.828 Contact with and (suspected) exposure to other viral communicable diseases
CPT/HCPCS: 87637; 87070

== ENCOUNTER → 2023-07-14 18:20 | Outpatient (CLI) | payer MEDICARE, OTHER, SELFPAY ==
--- NOTE | 2023-07-14 15:55 | DI.RAD_ITS ---
Exam(s) XR CHEST 2V PA LATERAL EXAM: XR CHEST 2V PA LATERAL CLINICAL HISTORY: cough/chest congestion R05.9 R09.89 TECHNIQUE: 2D digital imaging was performed. COMPARISON: No exams were available for comparison FINDINGS: HEART: Normal size. Aorta: Not dilated. PULMONARY VASCULATURE: Normal. LUNGS: Clear. PLEURAL SPACE: No pleural effusion or pneumothorax. BONE:Unremarkable for age. Soft tissues: Unremarkable. IMPRESSION: No acute abnormality. DATA REPOSITORY: RADIATION DOSE DELIVERED:
== END ==
PROVIDERS: PCP Student in an Organized Health Care Education/Training Program; Visit Provider Student in an Organized Health Care Education/Training Program
DX: R09.89 Other specified symptoms and signs involving the circulatory and respiratory systems (principal); R05.9 Cough, unspecified
CPT/HCPCS: 71046

== ENCOUNTER 2023-11-04 10:56 | Outpatient (CLI) | payer MEDICARE, OTHER, SELFPAY ==
[2023-11-04 11:21] LABS: Anion Gap 9.2 mmol/L (3-11); BUN 24 mg/dL (7-18); CO2 26.8 mmol/L (21.0-32.0); CREATININE 1.7 mg/dL (0.55-1.02); Calcium 8.6 mg/dL (8.5-10.1); Calculated LDL 76 mg/dL (<100); Chloride 109 mmol/L (98-107); Cholesterol 160 mg/dL (<200); Estimated GFR 33.91 (mL/min/1.73m2); Glucose 64 mg/dL (74-106); HDL Cholesterol 31 mg/dL (40-60); Magnesium 2.6 mg/dL (1.8-2.4); Potassium 3.6 mmol/L (3.5-5.1); Sodium 145 mmol/L (136-145); Triglyceride 266 mg/dL (<150)
== END 2023-11-04 10:57 | disposition home or self-care (01) ==
LOC: LBO 10:56
PROVIDERS: PCP Student in an Organized Health Care Education/Training Program; Visit Provider Student in an Organized Health Care Education/Training Program
DX: Z91.89 Other specified personal risk factors, not elsewhere classified (principal); N18.9 Chronic kidney disease, unspecified; Z13.220 Encounter for screening for lipoid disorders
CPT/HCPCS: 36415; 80048; 80061; 83735

== ENCOUNTER 2023-11-04 16:55 | Outpatient (REF) | payer MEDICARE, OTHER, SELFPAY ==
[2023-11-09 15:14] LABS: Pancreatic Elastase, F <40 mcg/g
== END 2023-11-04 16:56 | disposition home or self-care (01) ==
LOC: LBN 16:55
PROVIDERS: PCP Student in an Organized Health Care Education/Training Program; Visit Provider Student in an Organized Health Care Education/Training Program
DX: K58.0 Irritable bowel syndrome with diarrhea (principal)
CPT/HCPCS: 82656

== ENCOUNTER 2023-11-11 12:24 | Outpatient (CLI) | payer MEDICARE, OTHER, SELFPAY ==
[2023-11-11 13:00] LABS: Abs Immature Grans 0.02 10^3/uL (0.0-0.06); Absolute Basophil Count 0.05 10^3/uL (0.0-0.2); Absolute Eosinophil Count 0.21 10^3/uL (0.0-0.7); Absolute Lymphocyte Count 1.57 10^3/uL (1.2-3.4); Absolute Monocyte Count 0.57 10^3/uL (0.1-0.8); Absolute Neutrophil Count 2.09 10^3/uL (1.2-6.7); Basophils % 1.1 %; Eosinophils % 4.7 %; HCT 39.7 % (36.0-46.0); HGB 13.6 g/dL (11.2-15.7); Immature Grans % 0.4 %; Lymphocytes % 34.8 %; MCH 33.7 pg (27.0-33.0); MCHC 34.3 % (32.0-36.0); MCV 98 fL (80-95); Monocytes % 12.6 %; Neutrophils % 46.4 %; Platelet Count 149 10^3/uL (130-400); RBC 4.04 10^6/uL (3.93-5.22); RDW 13.4 % (11.7-14.6); RDW-SD 48.2 fL; WBC 4.51 10^3/uL (4.4-10.8)
[2023-11-11 13:02] LABS: Bilirubin Negative (Negative); Blood Negative (Negative); Clarity Clear (Clear); Glucose Negative (Negative); Ketones Negative (Negative); Leukocyte Esterase Small (Negative); Nitrite Negative (Negative); Urobilinogen 0.2 mg/dL (Up to 0.2)
[2023-11-11 13:08] LABS: Bacteria Rare HPF (Negative); C & S Indicated? No; Casts Negative LPF (Negative); Crystals Negative HPF (Negative); Epithelial Cells Rare HPF (Negative); Mucus Trace (Negative); RBC 0-2 HPF (0-2)
[2023-11-11 13:18] LABS: ESR < 1 mm/hr (0-30); Hemoglobin A1C 5.9 % (<5.7)
[2023-11-11 13:20] LABS: COMMENT (LAB VIEW ONLY) 20.78 mg/dL; PROTEIN 7.2 mg/dL; Prot/Crea Ur Ratio 0.34
[2023-11-11 13:27] LABS: ALT 109 U/L (14-59); AST 73 U/L (15-37); Albumin 3.7 g/dL (3.4-5.0); Alkaline Phosphatase 170 U/L (46-116); Anion Gap 9.7 mmol/L (3-11); BUN 30 mg/dL (7-18); Bilirubin, Total 0.47 mg/dL (0.2-1.0); CO2 26.3 mmol/L (21.0-32.0); Calcium 8.7 mg/dL (8.5-10.1); Chloride 112 mmol/L (98-107); Glucose 68 mg/dL (74-106); Potassium 3.8 mmol/L (3.5-5.1); Sodium 148 mmol/L (136-145); Total Protein 6.3 g/dL (6.4-8.2)
[2023-11-11 13:36] LABS: Creatine Kinase 199 U/L (26-192); GGT 113 U/L (5-55); TSH 1.65 uIU/Ml (0.36-3.74)
[2023-11-11 13:46] LABS: C-Reactive Protein < 0.50 mg/dL (<or=0.5)
[2023-11-11 14:21] LABS: Vitamin D 25 Total 22.4 ng/mL (30-100)
[2023-11-11 23:21] LABS: Parathyroid Hormone,Intact 222 pg/mL (19-88)
[2023-11-12 06:19] LABS: Lab Add On Test DONE
[2023-11-16 17:34] LABS: Apolipoprotein B, Serum 93 mg/dL (48-124); Beta VLDL Cholesterol Not Detected mg/dL (<15); Beta VLDL Triglycerides Not Detected mg/dL (<15); Cholesterol, Total, CDC 146 mg/dL; Chylomicron Cholesterol Not Detected; Chylomicron Triglycerides Not Detected; HDL Cholesterol, CDC 21 mg/dL (>=50); LDL Cholesterol 93 mg/dL; LDL Triglycerides 66 mg/dL (<=50); Lp(a) Cholesterol <5 mg/dL (<5); LpX Not detected; Triglycerides, CDC 226 mg/dL; VLDL Cholesterol 32 mg/dL (<30); VLDL Triglycerides 144 mg/dL (<120)
== END 2023-11-11 12:25 | disposition home or self-care (01) ==
LOC: LBO 12:25
PROVIDERS: Internal Medicine Rheumatology; PCP Student in an Organized Health Care Education/Training Program; Visit Provider Student in an Organized Health Care Education/Training Program
DX: E11.69 Type 2 diabetes mellitus with other specified complication; E03.9 Hypothyroidism, unspecified; N18.4 Chronic kidney disease, stage 4 (severe); E78.6 Lipoprotein deficiency; M06.09 Rheumatoid arthritis without rheumatoid factor, multiple sites; R74.8 Abnormal levels of other serum enzymes
CPT/HCPCS: 36415; 80053; 80061; 82306; 82550; 85652; 81003; 81015; 82172; 82565; 82664; 82977; 83036; 83970; 84100; 84156; 84443; 84550; 85025; 86140

== ENCOUNTER 2023-11-20 13:18 | Outpatient (CLI) | payer MEDICARE, OTHER, SELFPAY | END 2023-11-20 13:19 | disposition home or self-care (01) | LOC: DI.KIM 13:35 | PROVIDERS: PCP Student in an Organized Health Care Education/Training Program; Visit Provider Student in an Organized Health Care Education/Training Program | DX: Z79.899 Other long term (current) drug therapy (principal); I10 Essential (primary) hypertension; R23.8 Other skin changes; E03.9 Hypothyroidism, unspecified; N18.4 Chronic kidney disease, stage 4 (severe); R40.20 Unspecified coma; Z86.2 Personal history of diseases of the blood and blood-forming organs and certain disorders involving the immune mechanism; R74.8 Abnormal levels of other serum enzymes; R21 Rash and other nonspecific skin eruption | CPT/HCPCS: 93010 ==

== ENCOUNTER 2023-11-22 14:43 | Outpatient (CLI) | payer MEDICARE, OTHER, SELFPAY ==
[2023-11-22 15:02] LABS: Abs Immature Grans 0.03 10^3/uL (0.0-0.06); Absolute Basophil Count 0.06 10^3/uL (0.0-0.2); Absolute Eosinophil Count 0.26 10^3/uL (0.0-0.7); Absolute Lymphocyte Count 1.83 10^3/uL (1.2-3.4); Absolute Neutrophil Count 4.93 10^3/uL (1.2-6.7); Basophils % 0.8 %; Eosinophils % 3.3 %; HCT 40.9 % (36.0-46.0); HGB 13.6 g/dL (11.2-15.7); Immature Grans % 0.4 %; Lymphocytes % 23.1 %; MCH 33.3 pg (27.0-33.0); MCHC 33.3 % (32.0-36.0); MCV 100 fL (80-95); MPV 11.1 fL (8.0-11.0); Monocytes % 10.1 %; Neutrophils % 62.3 %; Platelet Count 165 10^3/uL (130-400); RBC 4.08 10^6/uL (3.93-5.22); RDW 12.9 % (11.7-14.6); RDW-SD 47.8 fL; WBC 7.91 10^3/uL (4.4-10.8)
== END 2023-11-22 14:44 | disposition home or self-care (01) ==
PROVIDERS: PCP Student in an Organized Health Care Education/Training Program; Visit Provider Student in an Organized Health Care Education/Training Program
DX: Z79.899 Other long term (current) drug therapy (principal); I10 Essential (primary) hypertension; R23.8 Other skin changes; E03.9 Hypothyroidism, unspecified; N18.4 Chronic kidney disease, stage 4 (severe); R40.20 Unspecified coma; Z86.2 Personal history of diseases of the blood and blood-forming organs and certain disorders involving the immune mechanism; R74.8 Abnormal levels of other serum enzymes
CPT/HCPCS: 36415; 85025

== ENCOUNTER → 2023-12-05 01:14 | Outpatient (CLI) | payer MEDICARE, OTHER, SELFPAY ==
--- NOTE | 2023-12-05 07:15 | DI.US_ITS ---
APPROVED REPORT EXAM: Comprehensive 2D, Doppler, and color-flow Echocardiogram Patient Location: Out-Patient Patented Hogshead Assembler: Blas Ybarra RDCS (AE) Indications: Evaluate heart and valve function, HTN, syncope, high risk medication use Conclusion Normal left ventricular wall thickness and chamber size. Ejection fraction is 55%. Wall motion is n ormal Normal right ventricular size and function Both atria are normal in size There is no structural or hemodynamically significant valvular disease Wall motion Left Ventricle The left ventricle is normal size. The left ventricular systolic function is normal. The left ventric ular ejection fraction is within the normal range. There is normal left ventricular wall thickness. T here is normal LV segmental wall motion. There is no ventricular septal defect visualized. LVEF is 55 %. Right Ventricle The right ventricle is normal size. The right ventricular systolic function is normal. Atria The left atrium size is normal. The right atrium size is normal. The interatrial septum is intact wit h no evidence for an atrial septal defect. Aortic Valve The aortic valve is normal in structure. Aortic valve is trileaflet. There is no aortic valvular sten osis. No aortic regurgitation is present. Mitral Valve The mitral valve is normal in structure. No evidence of mitral valve stenosis. Trace mitral regurgita tion. Tricuspid Valve The tricuspid valve is normal in structure. There is no tricuspid valve stenosis. Trace tricuspid reg urgitation. Unable to assess PA pressure. Pulmonic Valve The pulmonary valve is normal in structure. There is no pulmonic valvular stenosis. There is no pulmo tay valvular regurgitation. Great Vessels The aortic root is normal in size. The ascending aorta is normal in size. Aortic arch is normal in ca liber. IVC is normal in size and collapses >50% with inspiration. Pericardium There is no pericardial effusion. 2D Dimensions IVSD d PLAX 0.46 cm F: 0.6-1.0 Ao Root d 2.66 cm F: 2.7 - 3.3 LVPW d PLAX 0.49 cm F: 0.6 - 1.0 Ao Asc Diam d 2.96 cm F: 2.3 - 3.1 LVID d PLAX 5.23 cm F: 3.8 - 5.2 LVDs 3.71 cm F: 2.2 - 3.5 LV EF Teichholz 55.4 % FS 29.03 % LV EDV (Teich) 131.4 mL LV ESV (Teich) 58.7 mL Stroke Vol Index (Teich) 33.69 M-Mode TAPSE 2.45 cm (M/F) >1.7 Auto EF LV EDV A4C 88.2 mL LV EDV A2C 161.6 mL LV EDV BP 119.5 mL LV ESV A4C 42.4 mL LV ESV A2C 75.9 mL LV ESV BP 55.7 mL LVEF(%) A4C 52.0 % LVEF(%) A2C 53.1 % LVEF(%) BP 53.4 % LV SV A4C 45.8 ml LV SV A2C 85.7 ml LV SV BP 63.8 ml LV CO A4C 4.0 L/min LV CO A2C 7.6 L/min LV CO BP 5.8 L/min HR A4C 88.03 BPM HR A2C 88.24 BPM LV EDV Index (BP) LA Volume LA Length A4C 4.1 cm LA Length A2C 4.7 cm LA Area A4C s 9.68 cm2 LA Area A2C s 10.61 cm2 LA Vol A4C A-L 19.54 mL LA Vol A2C A-L 20.38 mL LA Vol Biplane A-L 21.4 mL LA Vol/BSA A4C A-L LA Vol/BSA A2C A-L LA Vol/BSA BP A-L 9.9 mL/m2 LA Vol A4C MOD 18.4 mL LA Vol A2C MOD 19.6 mL LA Vol BP MOD 20.2 mL RA Volume RA Area A4C 6.0 cm2 RA ESV A4C (A-L) 8.7mL RA Vol/BSA A4C A-L RA Length A4C 3.5 cm RA ESV A4C (MOD) 8.3mL LV Diastology MV E' medial 0.112 (>0.07 m/s) MV E Vmax 0.89 (0.4-1.3 m/s) MV E/E' MED 7.99 (<14) MV A Vmax 1.05 (0.4-1.3 m/s) MV E' lateral 0.136 (>0.1 m/s) E/A Ratio 0.8 MV E/E' LAT 6.57 (<14) MV E' Average 0.124 m/s MV E/E'(average) 7.21 Aortic Valve AoV Vmax 1.71 m/s LVOT Vmax 1.08 m/s AoV Peak Grad 11.7 mmHg LVOT Peak Grad 4.6 mmHg AoV Area (Vmax) 1.53 cm2 LVOT VTI 0.224 m AoV VTI 0.355 m LVOT Mean Grad 2.6 mmHg AoV Mean Robert. 1.24 m/s LVOT SV 54.36 mL AoV Mean Grad 6.9 mmHg LVOT Diam s 1.75 cm AoV Area (VTI) 1.53 cm2 Velocity Ratio 0.63 Mitral Valve MV DT 247 (160-240 msec) MV Vmax TIPS 1.10 m/s MV Mean Grad 2.6 (<2mmHg) MV VTI 0.270 m Pulmonary Valve PV Vmax 1.45 (0.5-1.5 m/s) RVOT Vmax 0.96 m/s PV Peak Grad 8.5 mmHg RVOT Peak Gr. 3.7 mmHg PV Mean Robert 1.14 m/s RVOT VTI 0.214 m PV Mean Grad 5.6 mmHg RVOT Mean Gr. 2.2 mmHg
== END ==
PROVIDERS: PCP Student in an Organized Health Care Education/Training Program; Visit Provider Student in an Organized Health Care Education/Training Program
DX: I10 Essential (primary) hypertension
CPT/HCPCS: 93246; 93306

== ENCOUNTER 2023-12-05 09:58 | Outpatient (CLI) | payer MEDICARE, OTHER, SELFPAY | END 2023-12-05 09:59 | disposition home or self-care (01) | PROVIDERS: PCP Student in an Organized Health Care Education/Training Program; Visit Provider Student in an Organized Health Care Education/Training Program | DX: R23.8 Other skin changes; I10 Essential (primary) hypertension; E03.9 Hypothyroidism, unspecified; N18.4 Chronic kidney disease, stage 4 (severe); R40.20 Unspecified coma; Z86.2 Personal history of diseases of the blood and blood-forming organs and certain disorders involving the immune mechanism | CPT/HCPCS: 93246 ==

== ENCOUNTER → 2023-12-22 13:50 | Outpatient (BNVA) | payer MEDICARE, OTHER, SELFPAY | PROVIDERS: PCP Student in an Organized Health Care Education/Training Program; Referring Provider Student in an Organized Health Care Education/Training Program; Visit Provider Internal Medicine Critical Care Medicine | DX: J45.20 Mild intermittent asthma, uncomplicated (principal) | CPT/HCPCS: 99213 ==

== ENCOUNTER 2023-12-27 09:57 | Outpatient (CLI) | payer MEDICARE, OTHER, SELFPAY ==
--- NOTE | 2023-12-27 12:03 | W.CARDEVENT ---
Date of service: 12/27/23 Time of Service: 12:03 Cardiac Event Recorder Referring Provider:: Lore Roman Indications:: Syncope Cardiac Event Note: This is a cardiac event monitor. Patient was monitored for 13 days and 19 hours Rhythm throughout was sinus with an average heart rate of 82. Minimum was 57, maximum 124 There were very rare isolated atrial and ventricular ectopic beats There was no atrial fibrillation, no high-grade AV block, no pauses greater than 3 seconds Symptoms were reported which had no correlation to any dysrhythmia
== END 2023-12-27 09:58 | disposition home or self-care (01) ==
LOC: CARDOPNVT 09:57
PROVIDERS: PCP Student in an Organized Health Care Education/Training Program; Visit Provider Internal Medicine Cardiovascular Disease
DX: R55 Syncope and collapse (principal)
CPT/HCPCS: 93248

== ENCOUNTER → 2023-12-27 13:48 | Outpatient (BNVA) | payer MEDICARE, OTHER, SELFPAY | PROVIDERS: PCP Student in an Organized Health Care Education/Training Program; Referring Provider Student in an Organized Health Care Education/Training Program; Visit Provider Psychiatry & Neurology Neurology | DX: G62.9 Polyneuropathy, unspecified (principal); R42 Dizziness and giddiness; R40.20 Unspecified coma | CPT/HCPCS: 99215 ==

== ENCOUNTER 2024-02-02 01:36 | Outpatient (CLI) | payer MEDICARE, OTHER, SELFPAY ==
--- NOTE | 2024-02-02 08:45 | DI.US_ITS ---
Exam(s) US ABDOMEN LIMITED EXAM: US ABDOMEN LIMITED CLINICAL HISTORY: Abnl LFTs, R79.89; c/f hepatic steatosis TECHNIQUE: Ultrasound abdomen performed using standard protocol. COMPARISON: US US ECHOCARDIOGRAM from 12/05/2023 FINDINGS: There is no ascites evident. LIVER: Hyperechoic indicating steatosis. There no discrete focal hepatic lesions identified on these images. GALLBLADDER/BILIARY: Gallbladder surgically absent. The common hepatic duct isnot able to be visualized due to overlying bowel gas. PANCREAS: Not able to be visualized due to overlying bowel gas RIGHT KIDNEY:No evidence of solid mass, calculus, nor hydronephrosis. No cortical cysts evident. IMPRESSION: 1. Suboptimal study due to overlying bowel gas which prevented visualization of the pancreas and CBD in this patient has had prior cholecystectomy. 2. Hepatic steatosis noted. No discrete focal hepatic lesions identified. 3. There is no ascites. DATA REPOSITORY:
== END 2024-02-02 01:56 ==
LOC: DI 01:36
PROVIDERS: PCP Student in an Organized Health Care Education/Training Program; Visit Provider Internal Medicine
DX: K76.0 Fatty (change of) liver, not elsewhere classified (principal)
CPT/HCPCS: 76705

== ENCOUNTER → 2024-02-03 13:12 | Outpatient (BNVA) | payer MEDICARE, OTHER, SELFPAY | PROVIDERS: PCP Student in an Organized Health Care Education/Training Program; Referring Provider Student in an Organized Health Care Education/Training Program; Visit Provider Internal Medicine Cardiovascular Disease | DX: E16.2 Hypoglycemia, unspecified (principal); I10 Essential (primary) hypertension | CPT/HCPCS: 93005; 99213 ==

== ENCOUNTER 2024-06-21 01:49 | Outpatient (CLI) | payer MEDICARE, OTHER, SELFPAY ==
[2024-06-21 09:31] LABS: Abs Immature Grans 0.02 10^3/uL (0.0-0.06); Absolute Basophil Count 0.06 10^3/uL (0.0-0.2); Absolute Eosinophil Count 0.16 10^3/uL (0.0-0.7); Absolute Lymphocyte Count 1.68 10^3/uL (1.2-3.4); Absolute Monocyte Count 0.53 10^3/uL (0.1-0.8); Absolute Neutrophil Count 3.66 10^3/uL (1.2-6.7); Eosinophils % 2.6 %; HCT 41.3 % (36.0-46.0); Immature Grans % 0.3 %; Lymphocytes % 27.5 %; MCH 32.8 pg (27.0-33.0); MCHC 33.9 % (32.0-36.0); MCV 97 fL (80-95); MPV 10.2 fL (8.0-11.0); Monocytes % 8.7 %; Neutrophils % 59.9 %; Platelet Count 206 10^3/uL (130-400); RBC 4.27 10^6/uL (3.93-5.22); RDW 12.4 % (11.7-14.6); WBC 6.11 10^3/uL (4.4-10.8)
[2024-06-21 09:48] LABS: ALT 80 U/L (14-59); AST 60 U/L (15-37); Albumin 3.4 g/dL (3.4-5.0); Alkaline Phosphatase 219 U/L (46-116); Anion Gap 12.8 mmol/L (3-11); BUN 35 mg/dL (7-18); CO2 23.2 mmol/L (21.0-32.0); CREATININE 1.9 mg/dL (0.55-1.02); Chloride 110 mmol/L (98-107); Estimated GFR 29.49 (mL/min/1.73m2); Glucose 120 mg/dL (74-106); Magnesium 2.2 mg/dL (1.8-2.4); PHOSPHORUS 4.2 mg/dL (2.6-4.7); Sodium 146 mmol/L (136-145); Total Protein 6.9 g/dL (6.4-8.2); Uric Acid 8.7 mg/dL (2.6-6.0)
[2024-06-21 10:11] LABS: COMMENT (LAB VIEW ONLY) 33.07 mg/dL; Microalb ug/mg Crea 42.3 ug/mg Cr
[2024-06-21 10:28] LABS: Calcium 8.8 mg/dL (8.5-10.1); Vitamin D 25 Total 35.2 ng/mL (30-100)
[2024-06-21 23:15] LABS: Parathyroid Hormone,Intact 194.1 pg/mL (19.0-88.0)
== END 2024-06-21 01:50 | disposition home or self-care (01) ==
PROVIDERS: PCP Student in an Organized Health Care Education/Training Program; Visit Provider Internal Medicine Nephrology
DX: N18.32 Chronic kidney disease, stage 3b (principal); E87.0 Hyperosmolality and hypernatremia; E55.9 Vitamin D deficiency, unspecified
CPT/HCPCS: 36415; 80053; 82306; 82043; 82570; 83735; 83970; 84100; 84550; 85025

== ENCOUNTER → 2024-08-16 15:38 | Outpatient (BNVA) | payer MEDICARE, OTHER, SELFPAY | PROVIDERS: PCP Nurse Practitioner Family; Referring Provider Student in an Organized Health Care Education/Training Program; Visit Provider Physician Assistant Surgical | DX: J45.20 Mild intermittent asthma, uncomplicated (principal) | CPT/HCPCS: 99213 ==

== ENCOUNTER 2024-08-24 13:20 | Outpatient (CLI) | payer MEDICARE, OTHER, SELFPAY ==
[2024-08-24 12:19] LABS: ALT 51 U/L (14-59); AST 39 U/L (15-37); Albumin 3.4 g/dL (3.4-5.0); Alkaline Phosphatase 218 U/L (46-116); Anion Gap 9.1 mmol/L (3-11); BUN 33 mg/dL (7-18); Bilirubin, Total 0.4 mg/dL (0.2-1.0); C-Reactive Protein < 0.50 mg/dL (<or=0.5); CO2 22.9 mmol/L (21.0-32.0); CREATININE 2.4 mg/dL (0.55-1.02); Calcium 8.6 mg/dL (8.5-10.1); Chloride 114 mmol/L (98-107); Estimated GFR 22.28 (mL/min/1.73m2); Glucose 62 mg/dL (74-106); Potassium 3.7 mmol/L (3.5-5.1); Sodium 146 mmol/L (136-145)
== END 2024-08-24 13:21 | disposition home or self-care (01) ==
LOC: LBO 13:20
PROVIDERS: PCP Nurse Practitioner Family; Visit Provider Internal Medicine Rheumatology
DX: E87.0 Hyperosmolality and hypernatremia (principal); E87.6 Hypokalemia; M06.09 Rheumatoid arthritis without rheumatoid factor, multiple sites; N18.4 Chronic kidney disease, stage 4 (severe); K75.81 Nonalcoholic steatohepatitis (NASH); K74.60 Unspecified cirrhosis of liver
CPT/HCPCS: 36415; 80048; 80053; 84550; 86140

== ENCOUNTER 2024-10-04 16:05 | Outpatient (CLI) | payer MEDICARE, OTHER, SELFPAY ==
[2024-10-04 16:36] LABS: Bilirubin Negative (Negative); Blood Negative (Negative); Clarity Clear (Clear); Glucose Negative (Negative); Ketones Negative (Negative); Leukocyte Esterase Moderate (Negative); Nitrite Negative (Negative); Specific Gravity 1.015 (1.005-1.025); Urobilinogen 0.2 mg/dL (Up to 0.2); pH 5.5 (5-8)
[2024-10-04 16:49] LABS: Albumin 3.7 g/dL (3.4-5.0); Anion Gap 7.6 mmol/L (3-11); BUN 38 mg/dL (7-18); CO2 28.4 mmol/L (21.0-32.0); CREATININE 2.1 mg/dL (0.55-1.02); Calcium 9.1 mg/dL (8.5-10.1); Chloride 110 mmol/L (98-107); Estimated GFR 26.15 (mL/min/1.73m2); Glucose 102 mg/dL (74-106); Magnesium 2.3 mg/dL (1.8-2.4); PHOSPHORUS 4.2 mg/dL (2.6-4.7); Potassium 4.1 mmol/L (3.5-5.1); Sodium 146 mmol/L (136-145); Uric Acid 9.5 mg/dL (2.6-6.0)
[2024-10-04 16:51] LABS: WBC 20-50 HPF (0-5)
[2024-10-04 16:52] LABS: Bacteria Negative HPF (Negative); C & S Indicated? Yes; Crystals Other HPF (Negative); Epithelial Cells Few HPF (Negative); Mucus Negative (Negative); Other Cells Rare Transitional (Negative); RBC Negative HPF (0-2)
[2024-10-04 18:01] LABS: COMMENT (LAB VIEW ONLY) 26.91 mg/dL; Microalb ug/mg Crea 29.4 ug/mg Cr
[2024-10-04 22:11] LABS: Osmolality, Urine 354 mOsm/kg (150-1150)
[2024-10-04 22:43] LABS: Parathyroid Hormone,Intact 266 pg/mL (19-88)
== END 2024-10-04 16:06 | disposition home or self-care (01) ==
LOC: LBO 16:06
PROVIDERS: PCP Nurse Practitioner Family; Visit Provider Internal Medicine Nephrology
DX: N18.32 Chronic kidney disease, stage 3b (principal); E87.0 Hyperosmolality and hypernatremia
CPT/HCPCS: 36415; 80048; 83935; 81003; 81015; 82040; 82043; 82570; 83735; 83970; 84100; 84550; 87086

== ENCOUNTER 2024-12-07 00:19 | Outpatient (CLI) | payer MEDICARE, OTHER, SELFPAY ==
--- NOTE | 2024-12-07 07:15 | DI.MAMMO_ITS ---
Exam(s) MAMMO SCREENING EXAM: MAMMO SCREENING CLINICAL HISTORY: screening,z12.39 TECHNIQUE: Mammograms were interpreted according to the usual protocol including computer analysis with CAD system, tomosynthesis and C-view imaging. COMPARISON: FINDINGS: The breasts are composed of mainly fatty density , Breast Density category A. No suspicious masses or suspicious microcalcifications are seen. No skin thickening or abnormal axillary lymph nodes are seen. There has been no significant change from prior exams. IMPRESSION: BI-RADS Category 1, Negative mammogram Yearly screening mammography is recommended. Breast Density- Category A - The breast are almost entirely fatty. Breast density Category C or D implies that the patient has dense breast tissue. Dense breast tissue can make it harder to find cancer on a mammogram. Dense breast tissue is also associated with an increased risk of breast cancer. This information about the result of the mammogram report was provided to the patient to raise their awareness. Use this report when you speak with the patient about their risks for breast cancer, which includes their family history. At that time, you may recommend additional screening tests (Ultrasound or MRI) as these tests may add significant information. A negative radiographic report should not delay biopsy if a dominant or clinically suspicious mass is present. Up to ten percent of cancers are not identified on mammography. A negative report may reinforce clinical impression. Adenosis and dense breasts may obscure an underlying neoplasm. False positive reports average 6 to 10%. Patient will receive a letter notifying them of these results.
== END 2024-12-07 00:39 ==
LOC: DI 00:19
PROVIDERS: PCP Nurse Practitioner Family; Visit Provider Nurse Practitioner Family
DX: Z12.31 Encounter for screening mammogram for malignant neoplasm of breast (principal); R92.313 Mammographic fatty tissue density, bilateral breasts
CPT/HCPCS: 77063; 77067

== ENCOUNTER 2025-01-25 03:23 | Outpatient (CLI) | payer MEDICARE, OTHER, SELFPAY ==
[2025-01-25 08:38] LABS: Abs Immature Grans 0.02 10^3/uL (0.0-0.06); HCT 41.9 % (36.0-46.0); HGB 14.3 g/dL (11.2-15.7); Immature Grans % 0.4 %; MCH 32.1 pg (27.0-33.0); MCHC 34.1 % (32.0-36.0); MCV 94 fL (80-95); MPV 10.1 fL (8.0-11.0); Platelet Count 224 10^3/uL (130-400); RBC 4.45 10^6/uL (3.93-5.22); RDW 12.4 % (11.7-14.6); RDW-SD 43.3 fL; WBC 5.56 10^3/uL (4.4-10.8)
[2025-01-25 08:43] LABS: ESR 10 mm/hr (0-30)
[2025-01-25 09:40] LABS: Calculated LDL 85 mg/dL (<100); Cholesterol 160 mg/dL (<200); HDL Cholesterol 35 mg/dL (>or=50); Triglyceride 204 mg/dL (<150)
[2025-01-25 09:59] LABS: ALT 43 U/L (14-59); AST 31 U/L (15-37); Albumin 3.3 g/dL (3.4-5.0); Alkaline Phosphatase 196 U/L (46-116); Anion Gap 11.7 mmol/L (3-11); BUN 25 mg/dL (7-18); Bilirubin, Total 0.4 mg/dL (0.2-1.0); CO2 23.3 mmol/L (21.0-32.0); Calcium 8.8 mg/dL (8.5-10.1); Chloride 112 mmol/L (98-107); Estimated GFR 27.73 (mL/min/1.73m2); Glucose 85 mg/dL (74-106); Potassium 4.0 mmol/L (3.5-5.1); Sodium 147 mmol/L (136-145); Total Protein 6.6 g/dL (6.4-8.2); Vitamin D 25 Total 35 ng/mL (30-100)
[2025-01-25 10:14] LABS: Creatine Kinase 149 U/L (26-192)
[2025-01-25 10:15] LABS: C-Reactive Protein 0.58 mg/dL (<or=0.5); Uric Acid 8.4 mg/dL (2.6-6.0)
== END 2025-01-25 03:24 | disposition home or self-care (01) ==
PROVIDERS: Internal Medicine Nephrology; Internal Medicine Rheumatology; PCP Nurse Practitioner Family; Visit Provider Nurse Practitioner Family
DX: E11.9 Type 2 diabetes mellitus without complications (principal); N18.32 Chronic kidney disease, stage 3b; N18.4 Chronic kidney disease, stage 4 (severe)
CPT/HCPCS: 36415; 80048; 80053; 80061; 82306; 82550; 85652; 83970; 84550; 84681; 85025; 86140

== ENCOUNTER 2025-02-28 15:12 | Outpatient (CLI) | payer MEDICARE, OTHER, SELFPAY ==
[2025-02-28 14:57] LABS: Abs Immature Grans 0.03 10^3/uL (0.0-0.06); HCT 41.8 % (36.0-46.0); HGB 13.7 g/dL (11.2-15.7); Immature Grans % 0.4 %; MCH 31.4 pg (27.0-33.0); MCHC 32.8 % (32.0-36.0); MCV 96 fL (80-95); MPV 10.4 fL (8.0-11.0); Platelet Count 209 10^3/uL (130-400); RBC 4.36 10^6/uL (3.93-5.22); RDW 12.5 % (11.7-14.6); RDW-SD 44.6 fL; WBC 8.42 10^3/uL (4.4-10.8)
[2025-02-28 15:00] LABS: Glucose >=1000 mg/dL (Negative)
[2025-02-28 15:19] LABS: RBC Negative HPF (0-2)
[2025-02-28 15:21] LABS: C & S Indicated? No
[2025-02-28 15:31] LABS: Anion Gap 9.1 mmol/L (3-11); BUN 38 mg/dL (7-18); CO2 23.9 mmol/L (21.0-32.0); Calcium 8.5 mg/dL (8.5-10.1); Chloride 110 mmol/L (98-107); Estimated GFR 23.45 (mL/min/1.73m2); Glucose 182 mg/dL (74-106); Magnesium 2.4 mg/dL (1.8-2.4); Potassium 4.1 mmol/L (3.5-5.1); Sodium 143 mmol/L (136-145); Uric Acid 8.8 mg/dL (2.6-6.0)
[2025-02-28 15:44] LABS: PROTEIN < 6.0 mg/dL
[2025-03-01 08:40] LABS: WBC 0-2 HPF (0-5)
== END 2025-02-28 15:13 | disposition home or self-care (01) ==
LOC: LBO 15:12
PROVIDERS: PCP Nurse Practitioner Family; Visit Provider Registered Nurse Nephrology
DX: N18.4 Chronic kidney disease, stage 4 (severe) (principal)
CPT/HCPCS: 36415; 80048; 81003; 81015; 82565; 83735; 83970; 84100; 84156; 84550; 84681; 85025

== ENCOUNTER 2025-03-22 12:09 | Outpatient (REF) | payer MEDICARE, OTHER, SELFPAY | END 2025-03-22 12:10 | disposition home or self-care (01) | LOC: LBN 12:09 | PROVIDERS: PCP Nurse Practitioner Family; Visit Provider Nurse Practitioner Adult Health | DX: K58.9 Irritable bowel syndrome, unspecified (principal); K75.81 Nonalcoholic steatohepatitis (NASH); R19.7 Diarrhea, unspecified | CPT/HCPCS: 83993 ==